=== PATIENT | female | born 1935 | race African-American/Black ===

== ENCOUNTER 2017-06-01 10:48 | Inpatient (IN) ==
[2017-06-01] MEDS ORDERED: ASPIRIN PO STA (11:36)
[2017-06-01] MEDS ORDERED: CARDIZEM IV ONE (11:36)
[2017-06-01] MEDS ORDERED: NS 500 ML IV ONE (11:37)
[2017-06-01 12:04] LABS: BASO% 0.4 % (0.0-0.8); EOS# 0.15 X1000 (0.0-0.7); EOS% 2.8 % (0.0-10.0); HEMOGLOBIN 9.2 g/dL (12.0-16.0); LYMPH# 1.75 X1000 (1.2-3.4); LYMPH% 32.7 % (20.5-51.1); MANUAL DIFF NEEDED? NO; MCH 23.4 PG (27-31); MCHC 31.7 g/dL (33-37); MCV 73.8 FL (81-99); MONO# 0.45 X1000 (0.11-0.59); MONO% 8.4 % (1.7-9.3); MPV 11.1 FL (7.4-10.4); NEUT% 55.7 % (42.2-75.2); PLT 253 X1000 (130-400); RBC 3.93 XMIL (4.2-5.4)
[2017-06-01 12:09] LABS: INR 1.24; PROTIME 13.2 Seconds (9.2-11.7)
[2017-06-01 12:13] LABS: PTT 40.6 Seconds (22.0-36.0)
[2017-06-01 12:24] LABS: AGAP 13; ALBUMIN 3.8 g/dL (3.5-5.0); ALKALINE PHOSPHATASE 44 U/L (32-104); BUN 22 mg/dL (8-22); CALCIUM 9.2 mg/dL (8.8-10.2); CHLORIDE 105 mmol/L (98-107); CK PROFILE 139 U/L (24-173); COSMO 285; GOT 20 U/L (10-30); GPT 17 U/L (10-36); POTASSIUM 4.4 mmol/L (3.5-5.1); SODIUM 141 mmol/L (136-145); TCO2 23 mmol/L (25-35); TOTAL BILIRUBIN 0.33 mg/dL (0.20-1.00); TOTAL PROTEIN 6.9 g/dL (6.3-8.3)
--- NOTE | 2017-06-01 12:32 | Diag Imaging Result Doc PS360 ---
EXAM: CHEST-2 VIEWS HISTORY: CP TECHNIQUE: Two views of the chest COMMENT: There is a granuloma in the left upper lobe. The heart size and primary vascularity are stable in appearance compared to 09/17/2015. The right lung is clearer than it was particularly in the right costophrenic angle region. IMPRESSION: No acute abnormality. Electronically signed by Jonathan Vazquez 06/01/2017 12:30 PM
--- NOTE | 2017-06-01 14:11 | EKG Report ---
Test Performed on : 06/01/2017 10:48:03 AM Test Reason : Chest Pain Blood Pressure : / mmHG Vent. Rate : 125 BPM Atrial Rate : 127 BPM P-R Int : 000 ms QRS Dur : 080 ms QT Int : 326 ms P-R-T Axes : 000 -11 -72 degrees QTc Int : 470 ms Accelerated Junctional rhythm. with retrograde conduction. Left ventricular hypertrophy with repolarization abnormality Abnormal ECG When compared with ECG of 05-MAY-2017 08:50, Junctional rhythm. has replaced Atrial flutter. T wave inversion now evident in Anterior leads Unconfirmed Result
--- NOTE | 2017-06-01 15:57 | EKG Report ---
Test Performed on : 06/01/2017 3:35:32 PM Test Reason : palpitations Blood Pressure : / mmHG Vent. Rate : 099 BPM Atrial Rate : 250 BPM P-R Int : 000 ms QRS Dur : 084 ms QT Int : 368 ms P-R-T Axes : 000 -20 -57 degrees QTc Int : 472 ms Atrial flutter. with variable AV block. Left ventricular hypertrophy with repolarization abnormality Abnormal ECG When compared with ECG of 01-JUN-2017 10:48, (Unconfirmed) Atrial flutter. has replaced Junctional rhythm. T wave inversion more evident in Anterior leads Unconfirmed Result
[2017-06-01] MEDS: CARDIZEM 100 MG/NS 100 MG/100 ML IVPB IV SCH (16:15)
--- NOTE | 2017-06-01 16:21 | ED EKG INTERP ---
This chart was entered by Tiffanie Damon Scribe, acting as scribe for Antonio Barajas MD. EKG Interpretation - EKG Time of EKG reading by physician:: 10:48 EKG Read and Signed by:: Antonio Barajas EKG Interpretation (*Must complete 3 of following elements*): Abnormal Rate: 125 Rhythm: accelerated junctional rhythm with retrograde conduction QRS: LVH (with repolarization abnormality) - EKG # 2 Time of EKG reading by physician:: 15:35 EKG Read and Signed by:: Antonio Barajas EKG Interpretation (*Must complete 3 of following elements*): Abnormal Rate: 99 Rhythm: Atrial flutter with variable AV block [place]: normal QRS: LVH (with repolarization abnormality) Attestation - Physician/ LAINA Attestation Patient care was provided by Advanced Practice Provider:: No The physician spent face to face time with patient:: Yes Advanced Practice Provider documentation review:: Supervising physician onsite and consulted in the evaluation and care of this patient. The physician did have a face to face encounter with the patient. This chart was documented by the indicated scribe, (Tiffanie Damon Scribe) and accurately reflects the services I performed and decisions made by me, Antonio Barajas MD, as attested by the provider's signature.
--- NOTE | 2017-06-01 16:22 | PROVIDER DOCUMENTATION ---
This chart was entered by Tiffanie Damon Scribe, acting as scribe for Antonio Barajas MD. HPI-Cardiac General - General Chief Complaint: Palpitations Stated Complaint: RAPID HEART RATE Time Seen by Provider: 06/01/17 11:04 Source: patient Allergies/Adverse Reactions: Patient Allergies Allergy/AdvReac Type Severity Reaction Status Date / Time codeine AdvReac NAUSEA/VOMI Verified 06/01/17 11:13 TING Home Medications: Home Medication List Medication Instructions Recorded Confirmed Last Taken Type Clonidine [Catapres] 0.1 mg PO DAILY 09/17/15 06/01/17 06/01/17 09:00 History Metformin [Glucophage] 500 mg PO DAILY 09/17/15 06/01/17 06/01/17 09:00 History Rivaroxaban [Xarelto] 20 mg PO HS 05/05/17 06/01/17 05/31/17 21:00 History Amlodipine Besylate [Amlodipine 10 mg PO DAILY 06/01/17 06/01/17 06/01/17 09:00 History Besylate] Carvedilol [Carvedilol] 25 mg PO BID 06/01/17 06/01/17 06/01/17 09:00 History Cholecalciferol (Vitamin D3) 1,000 unit PO DAILY 06/01/17 06/01/17 06/01/17 09: 00 History [Vitamin D3] Clonidine HCl [Clonidine HCl] 0.2 mg PO HS 06/01/17 06/01/17 05/31/17 21:00 History Docusate Sodium 100 mg PO DAILY 06/01/17 06/01/17 06/01/17 09:00 History Garlic 1 each PO DAILY 06/01/17 06/01/17 06/01/17 09:00 History Levocetirizine Dihydrochloride 5 mg PO PRN PRN 06/01/17 06/01/17 Unknown History [Xyzal] Metformin [Glucophage] 1,000 mg PO HS 06/01/17 06/01/17 05/31/17 21:00 History Multivit with Calcium,Iron,Min 1 each PO EVERY OTHER DAY 06/01/17 06/01/17 Unknown History [Womens Multiple Vitamins] Louisa-3 Fatty Acids/Fish Oil [Fish 1 each PO DAILY 06/01/17 06/01/17 06/01/17 09 :00 History Oil 1,000 mg Capsule] Potassium Chloride 1 tab PO DAILY 06/01/17 06/01/17 06/01/17 09:00 History Ranitidine [Zantac] 150 mg PO DAILY 06/01/17 06/01/17 Unknown History Rosuvastatin Calcium [Rosuvastatin 1 tab PO HS 06/01/17 06/01/17 Unknown History Calcium] Valsartan/Hydrochlorothiazide 1 tab PO DAILY 06/01/17 06/01/17 06/01/17 09:00 History [Valsartan-Hctz 320-25 mg Tab] - History of Present Illness-Cardiac Nature of Presenting Problem: 82 yo AAF presents to ED with cc of rapid heartbeat x 1 week. 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 Pt reports hx of HTN, NIDDM, sleep apnea, and reflux. She denies caffeine consumption, fever, and chest pain. Upon arrival to ED, pt is a&o x 3, has an accelerated heart rate, and is in no apparent distress. Quality of Pain: reports: none Severity in ED: moderate Onset/Duration: abrupt, 1 week ago Timing: still present, intermittent Context/Activities at Onset: reports: none Modifying Factors: improves with: nothing Palpitation Quality: fast/pounding heart beat Recent use of:: reports: no stimulants Associated Symptoms: reports: shortness of breath. denies: abdominal pain, diaphoresis, dizziness, edema, fever/chills, nausea, syncope, vomiting Similar Symptoms Previously?: Yes Review of Systems - Adult - REVIEW OF SYSTEMS - ADULT Constitutional: reports: no symptoms reported. denies: chills, fever Eyes: reports: no symptoms reported. denies: blurred vision, double vision Ears, Nose, Mouth & Throat: reports: no symptoms reported. denies: tinnitus, sinus problem Cardiovascular: reports: palpitations. denies: chest pain, syncope Respiratory: reports: shortness of breath. denies: cough Gastrointestinal: reports: no symptoms reported. denies: abdominal pain, nausea , vomiting Genitourinary: reports: no symptoms reported. denies: dysuria, flank pain Musculoskeletal: reports: no symptoms reported. denies: muscle aches, neck pain Integumentary: reports: no symptoms reported. denies: hives, rash Neurological: reports: no symptoms reported. denies: dizziness/vertigo, headache/migraines, syncope Psychiatric: reports: no symptoms reported. denies: anxiety, depression Endocrine: reports: no symptoms reported. denies: cold intolerance, heat intolerance Hematologic/Lymphatic: reports: no symptoms reported. denies: blood clots, lymphedema Allergic/Immunologic: reports: no symptoms reported. denies: allergic reactions , eczema All Other Systems: Reviewed and Negative Past History - Adult - PAST MEDICAL HISTORY-ADULT Review of Records: reports: Old Records Reviewed, Nursing Assessment Review, Medications Reviewed Cardiovascular: reports: other ("rare anemia") Respiratory: reports: sleep apnea (CPAP) Gastrointestinal: reports: GERD Endocrine/Immune: reports: Diabetes Other Conditions: reports: other cancer (skin) - PRIOR SURGERIES/PROCEDURES Surgical/Procedure History: reports: hysterectomy, back/neck - IMMUNIZATION STATUS Childhood Immunizations: See Nurse Assessment Flu Vaccine: See Nurse Assessment Physical Exam-General - PHYSICAL EXAM-ADULT Initial Vital Signs Reviewed: Yes - CONSTITUTIONAL General Appearance: appears well, alert, no apparent distress - EYES Eyes: PERRL/EOMI, pink conjunctivae - HEAD, EARS, NOSE, MOUTH & THROAT HENMT: normocephalic/atraumatic, moist mucous membranes - NECK Neck: non-tender, full range of motion, normal inspection - RESPIRATORY Respiratory: chest non-tender, lungs clear, normal breath sounds - CARDIOVASCULAR Cardiovascular: no edema, no gallop, no murmur, tachycardia - GASTROINTESTINAL (ABDOMEN) Abdominal Exam: normal bowel sounds, non tender, soft - LYMPHATIC Lymphatic: no adenopathy - MUSCULOSKELETAL Back Exam: normal inspection Extremity: non-tender - SKIN Integumentary: normal color, normal turgor - NEUROLOGIC Neurologic: grossly normal, no motor/sensory deficits - PSYCHIATRIC Psych/Mental Status: normal mood/affect, normal thought content, normal thought process, oriented x 3 Progress - PLAN OF CARE/RESULTS Progress/Plan/Lab Results: Vital Signs - 8 hr 06/01/17 10:56 06/01/17 13:00 06/01/17 14:00 Temperature 97.6 F Pulse Rate 124 H 99 H 125 H Respiratory Rate 18 16 21 Blood Pressure 113/72 124/73 122/98 O2 Sat by Pulse Oximetry 100 94 L 100 06/01/17 15:00 06/01/17 15:39 Temperature 98.5 F Pulse Rate 98 H Respiratory Rate 18 Blood Pressure 115/82 O2 Sat by Pulse Oximetry 93 L Laboratory Results - last 24 hr 06/01/17 06/01/17 06/01/17 11:33 11:33 11:33 WBC 5.35 RBC 3.93 L Hgb 9.2 L Hct 29.0 L MCV 73.8 L MCH 23.4 L MCHC 31.7 L RDW Std Deviation 16.2 H Plt Count 253 MPV 11.1 H Immature Gran % (Auto) 0.0 Neut % (Auto) 55.7 Lymph % (Auto) 32.7 Yancey % (Auto) 8.4 Eos % (Auto) 2.8 Baso % (Auto) 0.4 Immature Gran # (Auto) 0.00 Neut # (Auto) 2.98 Lymph # (Auto) 1.75 Yancey # (Auto) 0.45 Eos # (Auto) 0.15 Baso # (Auto) 0.02 PT INR PTT (Actin FS) D-Dimer 0.27 Sodium 141 Potassium 4.4 Chloride 105 Carbon Dioxide 23 L Anion Gap 13 BUN 22 Creatinine 0.9 Estimated GFR/1.73 m2 > 60 BUN/Creatinine Ratio 24 Glucose 98 Calculated Osmolality 285 Calcium 9.2 Magnesium 2.0 Total Bilirubin 0.33 AST 20 ALT 17 Alkaline Phosphatase 44 Creatine Kinase 139 Troponin T Kdl-I-Lermerskwje Pept Total Protein 6.9 Albumin 3.8 Globulin 3.1 Albumin/Globulin Ratio 1.2 06/01/17 06/01/17 06/01/17 11:33 11:33 11:33 WBC RBC Hgb Hct MCV MCH MCHC RDW Std Deviation Plt Count MPV Immature Gran % (Auto) Neut % (Auto) Lymph % (Auto) Yancey % (Auto) Eos % (Auto) Baso % (Auto) Immature Gran # (Auto) Neut # (Auto) Lymph # (Auto) Yancey # (Auto) Eos # (Auto) Baso # (Auto) PT 13.2 H INR 1.24 PTT (Actin FS) 40.6 H D-Dimer Sodium Potassium Chloride Carbon Dioxide Anion Gap BUN Creatinine Estimated GFR/1.73 m2 BUN/Creatinine Ratio Glucose Calculated Osmolality Calcium Magnesium Total Bilirubin AST ALT Alkaline Phosphatase Creatine Kinase Troponin T < 0.010 Rti-H-Uuctnhwtzeo Pept 1529 H Total Protein Albumin Globulin Albumin/Globulin Ratio Orders Category Date Time Status Cardiac Monitoring DIRECTED Care 06/01/17 11:36 Active Saline Loc NOW Care 06/01/17 11:36 Active CHEST-2 VIEWS [RAD] Stat Exams 06/01/17 11:36 Completed CBC WITH ELECTRONIC DIFF [HEME] Stat Lab 06/01/17 11:33 Completed CK PROFILE [SP CHEM] Stat Lab 06/01/17 11:33 Completed CK PROFILE [SP CHEM] Stat Lab 06/01/17 15:28 Received COMPREHENSIVE METABOLIC PANEL [CHEM] Stat Lab 06/01/17 11:33 Completed D-DIMER [CHEM] Stat Lab 06/01/17 11:33 Completed MAGNESIUM [CHEM] Stat Lab 06/01/17 11:33 Completed PRO B-NATRIURETIC PEPTIDE Stat Lab 06/01/17 11:33 Completed PROTIME WITH INR [COAG] Stat Lab 06/01/17 11:33 Completed PTT [COAG] Stat Lab 06/01/17 11:33 Completed TROPONIN T Stat Lab 06/01/17 11:33 Completed TROPONIN T Stat Lab 06/01/17 15:28 Received 0.9% Sodium Chloride Inj [Ns] 500 ml Med 06/01/17 11:37 Discontinued IV 999 mls/hr Aspirin Med 06/01/17 11:36 Discontinued 325 mg PO STAT STA Diltiazem 100 mg/Ns [Cardizem 100 mg/Ns] Med 06/01/17 15:37 Active 100 mg in 100 ml IV 5 mg/hr Diltiazem [Cardizem] Med 06/01/17 11:36 Discontinued 10 mg IV NOW ONE EKG [EKG] Stat Ther 06/01/17 11:36 Draft EKG [EKG] Stat Ther 06/01/17 15:02 Ordered Result Diagrams: 06/01/17 11:33 06/01/17 11:33 - REASSESSMENT Reassessment #1 Time Reassessed: 15:40 (HR went to 115 on re-exam.) Status: unchanged Reassessment Comment: Update pt on plan to admit. - XRAY 1 XRAY Study: Chest Impression: Abnormal (COMMENT: There is a granuloma in the left upper lobe. The heart size and primary vascularity are stable in appearance compared to 2015. The right lung is clearer than it was particularly in the right costophrenic angle region.) XRAY Interpretation: NAD (per radiology) - CONSULTS/PCP/HOSPITALIST Notification #1 *Consult/PCP/Hospitalist*: Dr. Barrera Time Discussed: 15:50 Reason/Comments: Admit pt Consult Disposition: Will see in ED Departure - Departure Date of Disposition Decision: 06/01/17 Time of Disposition Decision: 15:38 DIAGNOSIS: Atrial fibrillation with RVR, Heart palpitations Disposition: ADMITTED INPATIENT 09 Certified Medical Emergency: Emergent Condition: Stable Referrals and Follow-Ups: Ana Leone MD [Primary Care Provider] - - Critical Care Note This patient required my direct & personal management of CC.: Yes Total Time (mins): 40 Critical Care Statement: This patient required my direct personal management to treat or rule out processes, the absence of which, could potentiallly result in sudden, clinically significant life or limb threatening deterioration. Attestation - Physician/ LAINA Attestation Patient care was provided by Advanced Practice Provider:: No The physician spent face to face time with patient:: Yes Advanced Practice Provider documentation review:: Supervising physician onsite and consulted in the evaluation and care of this patient. The physician did have a face to face encounter with the patient. This chart was documented by the indicated scribe, (Tiffanie Damon Scribe) and accurately reflects the services I performed and decisions made by me, Antonio Barajas MD, as attested by the provider's signature.
[2017-06-01] MEDS ORDERED: TYLENOL PO PRN (16:48)
[2017-06-01] MEDS ORDERED: ZOFRAN IV PRN (16:48)
[2017-06-01] MEDS ORDERED: NS 1,000 ML IV SCH (16:48)
[2017-06-01 17:29] LABS: FREE T4 1.37 ng/dL (0.93-1.70)
--- NOTE | 2017-06-01 18:39 | HISTORY AND PHYSICAL ---
PRIMARY CARE PROVIDER: Ana Leone MD. PRIMARY HIDE TRIMMER: Marty Chung MD. CHIEF COMPLAINT: Irregular fast heartbeat. HISTORY OF PRESENT ILLNESS: Ms. Liyah Bruce is an 82-year-old, female with a medical history of atrial fibrillation which she feels has been for the last 2 months. Also with heart murmur, hypertension, hyperlipidemia, diabetes mellitus type 2 and obstructive sleep apnea along with GERD. She states that she went in for her checkup with Dr. Leone who was going to be doing some blood work. They found her heart rate to be fast and was sent here. Other complaints is when she is up throughout the day her ankles start to swell towards the end of the day. She has fluttering sensations from time to time. She essentially has to sit in a seated position to sleep. Otherwise she feels like she has a lot of gas and is unable to sleep in a flat position. She denies any chest pain, shortness of breath, fever or chills. She has been started on Cardizem drip for atrial fibrillation with a rapid ventricular response. Her blood pressure is stable. We will admit to [facility]. PAST MEDICAL HISTORY: Atrial fibrillation, atrial flutter, heart murmur, hypertension, hyperlipidemia, diabetes mellitus type 2, obstructive sleep apnea. She wears a CPAP at home but has not worn it in 1 week as she states that water keeps collecting in the tubing and she has been meaning to get it checked out. 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 PAST SURGICAL HISTORY: Right posterior tumor excision, lower back surgery, hysterectomy, polypectomy near colon and bilateral cataract surgery. SOCIAL HISTORY: Denies ever smoking. Denies alcohol or illicit drug use. Lives at home with her daughter and her son-in-law who has brain cancer. She is very independent. She continues to drive and is able to walk without any assistance. FAMILY HISTORY: She had an aunt with breast cancer, grandmother with heart disease, her mother from TB, father had heart disease and cancer. REVIEW OF SYSTEMS: Fourteen point review of systems were complete and all were negative except for those mentioned in the above HPI. She has the occasional flutter sensation. She has swelling in her ankles when she is up all day. She feels like she is gassy in the evenings. Otherwise there are no complaints. ALLERGIES: Codeine. HOME MEDICATIONS: Amlodipine besylate 10 mg p.o. daily, carvedilol 25 mg p.o. twice daily, vitamin D 3000 units p.o. daily, Catapres 0.1 mg p.o. daily, clonidine 0.2 mg p.o. nightly, docusate sodium 100 mg p.o. daily, garlic 1 p.o. daily, Xyzal 5 mg p.o. p.r.n., metformin 500 mg p.o. daily and 1000 mg p.o. nightly, multivitamin 1 tab p.o. every other day, fish oil 1 tab p.o. daily, potassium chloride 10 mEq p.o. daily, Zantac 150 mg p.o. daily, Xarelto 20 mg p.o. nightly, rosuvastatin 5 mg p.o. nightly, valsartan/hydrochlorothiazide 320/25 mg 1 tab p.o. daily. PHYSICAL EXAMINATION: VITAL SIGNS: Temperature 98.5 degrees, heart rate 105, respiratory rate 18, blood pressure 126/86, O2 saturation 98% on room air. GENERAL: Ms. Liyah Bruce is an 82-year-old, female in no acute distress. She is able to answer all questions appropriately. HEENT: Atraumatic, normocephalic. Pupils equal, round, reactive to light. Extraocular movements intact. Mucous membranes are moist. NECK: Trachea midline. CARDIOVASCULAR: Irregularly irregular rate and rhythm. No rubs or gallops. There is a low-grade murmur. No JVD or carotid bruits. No edema in the lower extremities. +2 dorsalis and radial pulses. PULMONARY: Clear to auscultation. Bilateral breath sounds. No accessory muscle use or work of breathing noted. GASTROINTESTINAL: Abdomen soft, nontender, nondistended. Positive bowel sounds x4. EXTREMITIES: Moves all extremities equally. NEUROLOGIC: Alert and oriented x4. No cranial nerve deficits. SKIN: Warm, dry, intact. LABORATORY DATA: White blood cells 5000, hemoglobin 9, hematocrit 29, platelet count 253,000. INR 1.24, D-dimer 0.27, sodium 141, potassium 4.4, BUN 22, creatinine 0.9, glucose 98, calcium 9.2, magnesium 2.0, bilirubin 0.33, AST 20, ALT 17, CK 123, troponin less than 0.01 x2, proBNP 1529. Urinalysis pending. IMAGING: EKG: A-flutter with AV block, rate was 99. There is another that said accelerated junctional rhythm with a rate of 125. The most recent was atrial flutter with AV block, rate 99. Chest x-ray: No acute findings. ASSESSMENT AND PLAN: 1. History of atrial fibrillation, atrial flutter now with rapid ventricular response. Previously she was going to have cardioversion but was not rescheduled with Dr. Chung. She presented to her primary care provider who noted her heart rate was fast and sent her here. She has been started on a Cardizem drip and her rate has been more controlled in the low 100s. Cardiology has been reconsulted. We will send to [facility]. Vital signs are stable. 2. Diabetes mellitus type 2. We will do pattern blood glucoses and sliding scale insulin. 3. Hyperlipidemia. Will continue statin. 4. Hypertension. Continue home medications. 5. Gastroesophageal reflux disease. Continue home medications. 6. Anemia is stable. 7. Deep venous thrombosis prophylaxis. She is currently on Xarelto. Dictated by GIRISH Florez for Celina Barrera MD cc: GIRISH Florez MD Bernice Swain, MD Peter Johnson, MD I personally performed a face to face evaluation on this patient. I agree with the assessment and plan as dictated. The patient presented to the ER with a chief complaint of palpitations. Upon further evaluation, the patient was noted to be in atrial fibrillation with RVR. She was started on a cardizem drip in the ER. On exam, the patient has an irregulary irregular rate and rhythm. The patient will be admitted to CICU on the cardizem drip and we will consult Cardiology for further recommendations. JACINTA
[2017-06-01] MEDS: XARELTO PO SCH (20:15)
[2017-06-01] MEDS: HUMULIN R SUBQ SCH (20:16)
[2017-06-01] MEDS: CRESTOR PO SCH (20:16)
[2017-06-02 05:16] LABS: BASO% 0.3 % (0.0-0.8); EOS# 0.26 X1000 (0.0-0.7); EOS% 4.4 % (0.0-10.0); HEMATOCRIT 28.5 % (37.0-47.0); HEMOGLOBIN 9.1 g/dL (12.0-16.0); LYMPH# 2.21 X1000 (1.2-3.4); LYMPH% 37.1 % (20.5-51.1); MANUAL DIFF NEEDED? YES; MCH 23.5 PG (27-31); MCHC 31.9 g/dL (33-37); MCV 73.5 FL (81-99); MONO# 0.57 X1000 (0.11-0.59); MONO% 9.6 % (1.7-9.3); MPV 10.4 FL (7.4-10.4); NEUT% 48.6 % (42.2-75.2); PLT 247 X1000 (130-400); RBC 3.88 XMIL (4.2-5.4); RETIC% 1.78 % (0.8-2.1); RETIC-HE 26.8 PG (28.2-36.6)
[2017-06-02 05:20] LABS: INR 1.28; PROTIME 13.7 Seconds (9.2-11.7); PTT 38.3 Seconds (22.0-36.0)
[2017-06-02 05:36] LABS: AGAP 14; ALBUMIN 3.7 g/dL (3.5-5.0); ALKALINE PHOSPHATASE 43 U/L (32-104); BUN 21 mg/dL (8-22); CALCIUM 8.9 mg/dL (8.8-10.2); CHLORIDE 103 mmol/L (98-107); COSMO 284; GOT 17 U/L (10-30); GPT 16 U/L (10-36); IRON SATURATION 15 %; POTASSIUM 3.8 mmol/L (3.5-5.1); SODIUM 141 mmol/L (136-145); TCO2 24 mmol/L (25-35); TIBC 291 ug/dL; TOTAL IRON 45 ug/dL (49-151); TOTAL PROTEIN 6.8 g/dL (6.3-8.3); UNBOUND IRON 246 ug/dL (112-346)
[2017-06-02 05:44] LABS: EOS 2 % (1-10); LYMPHS 38 % (21-51); MONO 8 % (1-9)
[2017-06-02 05:54] LABS: VITAMIN D 25 HYDROXY 44.8 NG/DL
--- NOTE | 2017-06-02 06:48 | EKG Report ---
Test Performed on : 06/02/2017 06:29:34 AM Test Reason : afib Blood Pressure : / mmHG Vent. Rate : 128 BPM Atrial Rate : 258 BPM P-R Int : 000 ms QRS Dur : 080 ms QT Int : 324 ms P-R-T Axes : 183 -05 181 degrees QTc Int : 473 ms Atrial flutter. with variable AV block. with premature ventricular or aberrantly conducted complexes . Left ventricular hypertrophy with repolarization abnormality Nonspecific T wave abnormality Abnormal ECG When compared with ECG of 01-JUN-2017 15:35, (Unconfirmed) Nonspecific T wave abnormality has replaced inverted T waves in Inferior leads T wave inversion no longer evident in Anterior leads Confirmed by Brian Mcelroy MD ([id number]) on 06/03/2017 3:22:02 PM
[2017-06-02] MEDS: CARDIZEM 100 MG/NS 100 MG/100 ML IVPB IV SCH ×2 (07:37→11:40)
[2017-06-02] MEDS: COLACE PO SCH (08:24)
[2017-06-02] MEDS: VITAMIN D PO SCH (08:24)
[2017-06-02] MEDS: PRILOSEC PO SCH (08:24)
[2017-06-02] MEDS: HUMULIN R SUBQ SCH ×4 (09:46→21:19)
--- NOTE | 2017-06-02 10:55 | CONSULTATION ---
DATE OF CONSULTATION: 06/02/2017 INDICATION: Atrial fibrillation. HISTORY OF PRESENT ILLNESS: Ms. Liyah Bruce is an 82-year-old black female with a history of atrial flutter. We had planned on doing a PEREZ cardioversion on her earlier this month. However, due to some instability in an in-hospital patient, the patient's procedure was bumped to a little bit later in the day. She would not stay for that procedure and ended up going home. Subsequently yesterday she went to see her primary care physician and was noted to be in atrial flutter with a fast heart rate. She was then sent to the ER for further evaluations. Per my evaluation back in April, she was having some issues with shortness of breath as well as some lower extremity edema and was felt to be in some low level heart failure secondary to a-flutter, as well as being symptomatic as well. She continues with these symptoms which is understandable considering she is still in atrial fibrillation. She has no bleeding issues, no falls, no swallowing issues. She did have an esophageal dilatation several months ago. However, has not had any sort of dysphasia or odynophagia in the interim, no bleeding issues that she is aware of, no significant gastric ulcerations. PAST MEDICAL HISTORY: 1. Significant for atrial fibrillation/atrial flutter. She has been maintained on Xarelto. She did receive a dose last night. 2. Aortic insufficiency. 3. Mitral regurgitation. 4. Hyperlipidemia. 5. Diabetes. SOCIAL HISTORY: She does not smoke. No alcohol. No illicit drugs. She lives independent. She drives without any assistance. FAMILY HISTORY: She has an aunt with breast cancer. Grandmother had heart disease. Her mother from TB. Father had heart disease and cancer as well. REVIEW OF SYSTEMS: A 10 system review of systems is negative, except for those things mentioned in HPI. PHYSICAL EXAMINATION: Vital Signs: She is afebrile. Her current heart rate is in the 120s and appears to be consistent with either coarse atrial fibrillation or atrial flutter. Blood pressure 129/84. General: Generally, no acute distress. HEENT: Oropharynx is moist. Normal dentition. Eye examination with pink conjunctivae, white sclerae. Neck: Examination shows no obvious thyromegaly or thyroid tenderness. Cardiovascular: She sounds to be in a regular, but tachycardic rhythm. She has no murmurs. She has no lower extremity edema. Chest: Exam sounds clear bilaterally. She has no increased work of breathing. Abdomen: Soft, nontender, nondistended. She has no obvious organomegaly. Skin Exam: Warm and dry throughout without any rashes. Neurological: She is moving all extremities well. Cranial nerves 2-12 are intact without any sensation deficits. Psychiatric: She is alert and oriented. Normal mood and affect. PERTINENT DATA: Chest x-ray shows no evidence of acute abnormalities, relatively clear lungs appearing. Echo on April 13 demonstrated an EF of 51%. She had mild pulmonic insufficiency, moderate TR, moderate mitral regurg, mild AI. She was in atrial fibrillation during the course of the study. White count 5.9, hematocrit 28.5, platelet count is 247. INR 1.28. Sodium 141, potassium 3.8, BUN 21, creatinine 0.9. Magnesium level was 2, AST and ALT normal. Cardiac enzymes normal. ProBNP is elevated at 1529. Albumin level is 3.7. TSH yesterday was 2.2. ASSESSMENT: Atrial flutter. PLAN: Patient will undergo PEREZ cardioversion today per our recommendations and attempts at performing this earlier in the month. Risks, benefits, and alternatives of the procedure have been explained, including bleeding esophageal perforation, potential . She agrees to proceed with the procedure as detailed. She did receive Xarelto last night. cc: Marty Chung MD
[2017-06-02] MEDS ORDERED: XYLOCAINE 2% VISCOUS ONE (12:44)
[2017-06-02] MEDS ORDERED: XYLOCAINE 4% TOPICAL SOLUTION ONE (12:44)
[2017-06-02] MEDS ORDERED: SODIUM CHLORIDE 0.9% 10 ML ONE (12:45)
[2017-06-02] MEDS ORDERED: NS 1,000 ML ONE (13:00)
[2017-06-02] MEDS ORDERED: ANESTHESIA PB SET 88 IN 5742 ONE (13:00)
[2017-06-02] MEDS ORDERED: DIPRIVAN 1% ONE (14:19)
[2017-06-02] MEDS ORDERED: XYLOCAINE-MPF 2% ONE (14:19)
--- NOTE | 2017-06-02 14:33 | CARDIAC CATH REPORT ---
PROCEDURE NAME: - INDICATION: Atrial fibrillation. PROCEDURE IN DETAIL: Ms Bruce was brought to the catheterization laboratory fasting state. PEREZ was performed. After adequate PEREZ images were obtained and no clot was identified she was ensured to be adequately sedated. One shock was delivered in synchronized fashion at 150 joules which converted her over to sinus rhythm. She did have some prolongation of sedation and was transferred over to the postop holding area but seemed to be tolerating procedure and seemed to be waking and saturating fine at the time of transfer. cc: Marty Chung MD MTDD
[2017-06-02] MEDS: CORDARONE 150 MG/D5W 150 MG/100 ML IV.SOLN IV ONE ×2 (14:42→16:39)
[2017-06-02] MEDS: CORDARONE 360 MG/D5W 360 MG/200 ML IV.SOLN IV ONE ×2 (14:53→16:39)
--- NOTE | 2017-06-02 16:40 | EKG Report ---
Test Performed on : 06/02/2017 4:06:40 PM Test Reason : post luciana/CVN Blood Pressure : / mmHG Vent. Rate : 080 BPM Atrial Rate : 080 BPM P-R Int : 190 ms QRS Dur : 080 ms QT Int : 448 ms P-R-T Axes : 063 -09 -46 degrees QTc Int : 516 ms Normal sinus rhythm. Voltage criteria for left ventricular hypertrophy Nonspecific ST and T wave abnormality Prolonged QT Abnormal ECG When compared with ECG of 02-JUN-2017 06:29, (Unconfirmed) Normal sinus rhythm has replaced atrial flutter Nonspecific ST and T wave abnormality are more prominent in the inferolateral leads. Confirmed by Brian Mcelroy MD ([id number]) on 06/03/2017 3:28:46 PM
--- NOTE | 2017-06-02 16:54 | PROGRESS NOTE ---
DATE: 06/02/2017 SUBJECTIVE: Ms. Liyah Bruce is an 82-year-old, female. She is currently in PACU as she recently had cardioversion with the side effect of heavy sedation after receiving sedatives for the procedure. So she is being monitored more closely there until she fully recovers. She is tachypneic but her vital signs are stable. She is in sinus rhythm. She is improving and more alert. OBJECTIVE: Vital Signs: Temperature 97.2, heart rate 86, sinus rhythm, respiratory rate 18, blood pressure 119/67, O2 saturation 93% on nasal cannula. General: Ms. Liyah Bruce is an 82- year-old, female. She is tachypneic but not in significant distress. She is able to answer questions appropriately and is more alert after her sedation. Cardiovascular: S1, S2. Regular rate and rhythm. No rubs, gallops, murmurs. No JVD or carotid bruits. No edema. + 2 dorsalis and radial pulses. Pulmonary: Clear to auscultation. Bilateral breath sounds. No accessory muscle use but mild work of breathing. Currently on nasal cannula. GI: Soft, nontender, nondistended. Positive bowel sounds x4. Neuro: Alert and oriented x4. Moves all extremities equally. LABORATORY DATA: White blood cells 1000, hemoglobin 9, hematocrit 28, platelet count 247, INR 1.28, PTT is 38.3. Sodium 141, potassium 3.8, BUN 21, creatinine 0.9, glucose 95. Iron 49, total iron binding capacity is 291, saturation 15, ferritin is 160. Total bilirubin 0.40. AST 17, ALT 16. CK 106. Troponin less than 0.01. Vitamin B12 781, vitamin D 44, folate 18, TSH 2.24, free T4 is 1.37. IMAGING AND PROCEDURES: EKG this morning atrial flutter with a rate of 128. At around 2 o'clock today had a PEREZ which revealed no clot in the heart. She was sedated and had one shock synchronized 150 joules which converted her to sinus rhythm. During the procedure she had prolongation of sedation and was sent to postop holding for recovery. ASSESSMENT AND PLAN: 1. History of atrial fibrillation, atrial flutter. Presented to the emergency room yesterday with rapid ventricular response. Today now she is status post cardioversion x1 shock by Dr. Chung. She was overly sedated and went to PACU for recovery. Will need to remain in the hospital for one more day and she should continue on Xarelto. 2. Diabetes mellitus type 2. Continue the pattern blood glucoses and sliding scale insulin. 3. Hyperlipidemia. Continue statin. 4. Hypertension. Continue home medications. 5. Gastroesophageal reflux disease. Continue home medications. 6. Anemia with some mild iron-deficiency anemia but stable. Dictated by GIRISH Florez for Kerwin Navarro MD cc: GIRISH Florez MD
--- NOTE | 2017-06-02 19:37 | PROGRESS NOTE ---
DATE: 06/02/2017 ADDENDUM: Patient seen face to face. Examined. Cardiovascular: She is still irregularly irregular. Patient underwent DC cardioversion today but looks like she may still be in flutter. She has been placed on an amiodarone drip per Dr. Chung. Plan is to monitor her overnight and if stable home tomorrow on Xarelto which he had previously been on, and amiodarone. We will continue to follow. cc: Kerwin Navarro MD
[2017-06-02] MEDS ORDERED: CORDARONE 540 MG in D5W 289.2 ML IV ONE (20:30)
[2017-06-02] MEDS: CRESTOR PO SCH (21:14)
[2017-06-02] MEDS: XARELTO PO SCH (21:14)
[2017-06-02] MEDS: CORDARONE PO SCH (21:14)
[2017-06-02] MEDS ORDERED: NS NEB INH SCH (21:30)
[2017-06-02] MEDS ORDERED: APRESOLINE IV PRN (21:42)
[2017-06-02] MEDS: CATAPRES PO SCH (22:08)
[2017-06-02] MEDS ORDERED: LASIX IV ONE (22:19)
[2017-06-02] MEDS: MUCINEX PO SCH (22:33)
[2017-06-02] MEDS: XOPENEX NEB INH PRN (22:49)
[2017-06-03 05:12] LABS: BASO% 0.2 % (0.0-0.8); EOS# 0.03 X1000 (0.0-0.7); EOS% 0.3 % (0.0-10.0); HEMATOCRIT 27.2 % (37.0-47.0); HEMOGLOBIN 8.9 g/dL (12.0-16.0); IMM GRAN# 0.02 X1000 (0.0-0.04); IMM GRAN% 0.2 % (0.0-0.5); LYMPH# 1.64 X1000 (1.2-3.4); LYMPH% 16.8 % (20.5-51.1); MANUAL DIFF NEEDED? NO; MCH 23.9 PG (27-31); MCHC 32.7 g/dL (33-37); MCV 72.9 FL (81-99); MONO# 1.08 X1000 (0.11-0.59); MPV 10.7 FL (7.4-10.4); NEUT% 71.5 % (42.2-75.2); PLT 237 X1000 (130-400); RBC 3.73 XMIL (4.2-5.4)
[2017-06-03 05:25] LABS: ALBUMIN 3.4 g/dL (3.5-5.0); CALCIUM 8.5 mg/dL (8.8-10.2); MAGNESIUM 1.9 mg/dL (1.5-2.7); POTASSIUM 3.7 mmol/L (3.5-5.1); TOTAL BILIRUBIN 0.41 mg/dL (0.20-1.00); TOTAL PROTEIN 6.1 g/dL (6.3-8.3)
[2017-06-03] MEDS: HUMULIN R SUBQ SCH ×4 (06:57→23:19)
[2017-06-03] MEDS: MUCINEX PO SCH ×2 (08:50→20:39)
[2017-06-03] MEDS: THERA M PLUS PO SCH (08:50)
[2017-06-03] MEDS: COLACE PO SCH (08:50)
[2017-06-03] MEDS: CORDARONE PO SCH ×2 (08:50→20:38)
[2017-06-03] MEDS: PRILOSEC PO SCH (08:51)
[2017-06-03] MEDS: VITAMIN D PO SCH (08:51)
--- NOTE | 2017-06-03 09:23 | Diag Imaging Result Doc PS360 ---
EXAM: CHEST-PORTABLE INDICATION: SOB TECHNIQUE: One view COMPARISON: 06/01/2017 FINDINGS: There are increased central vascular markings and increased interstitial markings at the lower lung zones that have developed during the interval suggesting pulmonary venous congestion and mild interstitial edema. No other new consolidations are appreciated. The cardiac silhouette is prominent but appears stable given differences in technique. IMPRESSION: Suggestion of pulmonary venous congestion and mild interstitial edema that has developed during the interval. Electronically signed by Myron Cr 06/03/2017 9:21 AM
[2017-06-03] MEDS: XOPENEX NEB INH PRN ×4 (09:54→23:10)
--- NOTE | 2017-06-03 11:02 | PROGRESS NOTE ---
DATE: 06/03/2017 CHIEF COMPLAINT: Shortness of breath, irregular heartbeat. SUBJECTIVE: Mrs. Bruce has converted to sinus rhythm. However, last night she had an episode of significant dyspnea. They did a stat chest x-ray that shows possible pulmonary edema. She is feeling somewhat better this morning. She is not having any chest pain. OBJECTIVE: Vital signs: Blood pressure is 126/65, pulse 104, respirations 16, temperature 98.7. General; She is awake, alert, oriented, follows commands. HEENT: Unremarkable. Chest: Decreased breath sounds at bases. Cardiac: Heart sounds are regular and rhythmic. I do not hear any definite gallop or murmur. Abdomen: Nontender, soft, no masses, no hepatomegaly. Extremities: Good pulses, no peripheral edema. Neurological: Follows commands, moves four extremities. BLOOD WORK: Sodium 139, potassium 3.7, BUN 25, creatinine 1.3. Hemoglobin is 8.9, hematocrit is 27.2, white count 9680. She has low iron levels. Iron is 45. Saturation 15%. Ferritin is 160, which is slightly elevated. TIBC is 291. Her proBNP level was 1529. Albumin is 3.4. IMPRESSION: 1. Patient presented with symptoms of irregular palpitations and some dyspnea. This was due to atrial fibrillation, and she has been cardioverted yesterday. There was some recurrence after cardioversion, and she has remained stable on amiodarone. 2. History of obstructive sleep apnea, CPAP treatment. 3. Diabetes mellitus type 2. 4. History of gastroesophageal reflux with hiatal hernia. 5. Iron-deficiency anemia. 6. Congestive heart failure, presumably diastolic dysfunction given the fact that on previous cardiac imaging studies her ejection fraction has been normal. RECOMMENDATION: At this point in time, I would suggest to obtain a C-reactive protein level and a sed rate to make sure that we are not dealing with some sort of aspiration pneumonia complicating her course. If those numbers are reasonably low, then I guess she could probably go home on medical therapy. I believe it may be a good idea to keep her one more night in the hospital to make sure that she is stable. I am not sure as to why she went into some respiratory distress last night. However, the findings of possible CHF is worrisome. I would suggest to repeat the chest x-ray early in the morning prior to sending her home, getting a 2-view x-ray. cc: Mik Waldron MD
[2017-06-03] MEDS ORDERED: LASIX IV ONE (16:45)
--- NOTE | 2017-06-03 17:07 | PROGRESS NOTE ---
DATE: 06/03/2017 SUBJECTIVE: Patient has no focal complaints. She had some hypoxia overnight and had a chest x- ray done on the which showed some pulmonary vascular congestion. OBJECTIVE: Vital signs: This afternoon blood pressures is 137/76, heart rate of 97, respiratory 18, temperature 98.7 degrees, 97% on 2 L. Cardiovascular: Regular rate, rhythm. Pulmonary: Bilateral breath sounds. Clear to auscultation. GI: Soft, nontender, nondistended. Bowel sounds are positive. PROBLEM LIST: 1. Atrial fibrillation with rapid ventricular response. Appears to be rate controlled on current medications. She is on amiodarone. 2. Possible heart failure versus aspiration event. I will continue some diuretic and follow her clinically. I do not think at this point she has pneumonia per se. 3. Diabetes appears to be stable. DISPOSITION: I anticipate probably discharge tomorrow if she is stable and we can get her off oxygen. cc: Kerwin Navarro MD
[2017-06-03] MEDS: XARELTO PO SCH (20:38)
[2017-06-03] MEDS: CATAPRES PO SCH (20:39)
[2017-06-03] MEDS: CRESTOR PO SCH (20:39)
[2017-06-04] MEDS: XOPENEX NEB INH PRN (03:25)
[2017-06-04 05:24] LABS: CALCIUM 8.4 mg/dL (8.8-10.2); POTASSIUM 3.2 mmol/L (3.5-5.1)
[2017-06-04 05:26] LABS: HEMATOCRIT 25.3 % (37.0-47.0); HEMOGLOBIN 8.2 g/dL (12.0-16.0); MCH 23.4 PG (27-31); MCHC 32.4 g/dL (33-37); MCV 72.3 FL (81-99); MPV 10.8 FL (7.4-10.4); RBC 3.5 XMIL (4.2-5.4)
[2017-06-04] MEDS: HUMULIN R SUBQ SCH ×4 (07:27→21:07)
[2017-06-04] MEDS: COLACE PO SCH (09:50)
[2017-06-04] MEDS: MUCINEX PO SCH ×2 (09:50→21:07)
[2017-06-04] MEDS: PRILOSEC PO SCH (09:50)
[2017-06-04] MEDS: VITAMIN D PO SCH (09:50)
[2017-06-04] MEDS: CORDARONE PO SCH ×2 (09:50→21:07)
--- NOTE | 2017-06-04 10:17 | Diag Imaging Result Doc PS360 ---
EXAM: CHEST-2 VIEWS INDICATION: hypoxia TECHNIQUE: 2 views COMPARISON: 06/02/2017 FINDINGS: There has been interval modest improvement of pulmonary venous congestion and interstitial edema since the previous study. No new consolidations are appreciated. Cardiac silhouette is stable. There are probably small bilateral pleural effusions that are stable. IMPRESSION: Interval improvement as described. Electronically signed by Myron Cr 06/04/2017 10:15 AM
[2017-06-04] MEDS ORDERED: POTASSIUM CHLORIDE 20% LIQUID PO ONE (10:30)
--- NOTE | 2017-06-04 11:02 | PROGRESS NOTE ---
DATE: 06/04/2017 CHIEF COMPLAINT: Shortness of breath, irregular heartbeat. SUBJECTIVE: Ms. Bruce is generally feeling better. Breathing has improved. She has some cough. No chest pain. She does not have a great appetite this morning. OBJECTIVE: Blood pressure is 127/70, temperature 98.1, pulse 64, respirations 14. Telemetry shows sinus rhythm. HEENT is unremarkable. Chest sounds very clear to auscultation and percussion. Heart sounds are regular and rhythmic. I do not hear gallop or murmur. Abdomen is nontender. Extremities show no edema. Neurologic: Follows commands. Moves all 4 extremities. DIAGNOSTIC DATA: Blood work today shows sodium is 140, potassium 3.2, BUN is 22, creatinine 1.1. ProBNP went up to 4096. Hemoglobin is 8.2, hematocrit 25.7. IMPRESSION: 1. The patient has presented with paroxysmal atrial fibrillation. She has been cardioverted and is in sinus rhythm. 2. Iron deficiency anemia. 3. Congestive heart failure that appears to be due to diastolic dysfunction. 4. History of obstructive sleep apnea. 5. History of gastroesophageal reflux disease, reflux. 6. History of diabetes mellitus. RECOMMENDATIONS: At this time, I would suggest to continue her on present medications. I would suggest to consider iron replacement, either IV or by mouth. Her C-reactive protein yesterday was only minimally elevated at 13.09, and her sedimentation rate was also slightly elevated at 31. She is presently taking no antibiotics. It is possible that she may have had some bronchitis complicating her presentation. Her chest x-ray on the day of admission showed no acute abnormalities. From my viewpoint, the patient is probably getting closer to being discharged. I would consider administration of iron. cc: Mik Waldron MD
[2017-06-04] MEDS ORDERED: KLOR-CON PO ONE (12:00)
[2017-06-04] MEDS: XARELTO PO SCH (21:07)
[2017-06-04] MEDS: CRESTOR PO SCH (21:07)
[2017-06-04] MEDS: CATAPRES PO SCH (21:07)
--- NOTE | 2017-06-05 02:58 | PROGRESS NOTE ---
DATE: 06/05/2017 SUBJECTIVE: Patient has no focal complaints. Appears clinically improved. OBJECTIVE: Vital Signs: Blood pressure 111/64, heart rate 78, respiratory rate 18, temperature 97.7 degrees, 98% on room air. Cardiovascular: Regular rate and rhythm. Pulmonary: Bilateral breath sounds clear to auscultation. GI: Soft, nontender, nondistended. Bowel sounds were positive. Laboratory Data: White count 7, hemoglobin and hematocrit 8 and 25, platelets 215,000. Chemistries otherwise okay. Potassium was 3.2. PROBLEM LIST: 1. Atrial fibrillation with rapid ventricular response. I think she has converted back on amiodarone. 2. Volume overload. Appears to be overall improved. She is on anticoagulation. 3. Discharge condition. Likely can discharge in the next 24-48 hours. cc: Kerwin Navarro MD
[2017-06-05 05:25] LABS: BASO% 0.4 % (0.0-0.8); EOS# 0.32 X1000 (0.0-0.7); EOS% 4.6 % (0.0-10.0); HEMATOCRIT 24.6 % (37.0-47.0); HEMOGLOBIN 7.9 g/dL (12.0-16.0); IMM GRAN# 0.02 X1000 (0.0-0.04); IMM GRAN% 0.3 % (0.0-0.5); LYMPH# 1.94 X1000 (1.2-3.4); LYMPH% 27.9 % (20.5-51.1); MANUAL DIFF NEEDED? NO; MCH 23.3 PG (27-31); MCHC 32.1 g/dL (33-37); MCV 72.6 FL (81-99); MONO% 12.9 % (1.7-9.3); MPV 11.1 FL (7.4-10.4); NEUT% 53.9 % (42.2-75.2); PLT 221 X1000 (130-400); RBC 3.39 XMIL (4.2-5.4)
[2017-06-05 05:36] LABS: ALBUMIN 3.3 g/dL (3.5-5.0); CALCIUM 8.3 mg/dL (8.8-10.2); MAGNESIUM 2.4 mg/dL (1.5-2.7); POTASSIUM 4.4 mmol/L (3.5-5.1); TOTAL BILIRUBIN 0.42 mg/dL (0.20-1.00); TOTAL PROTEIN 6.3 g/dL (6.3-8.3)
[2017-06-05] MEDS: HUMULIN R SUBQ SCH ×2 (06:07→11:56)
--- NOTE | 2017-06-05 06:08 | EKG Report ---
Test Performed on : 06/04/2017 06:36:08 AM Test Reason : afib Blood Pressure : / mmHG Vent. Rate : 098 BPM Atrial Rate : 098 BPM P-R Int : 198 ms QRS Dur : 086 ms QT Int : 414 ms P-R-T Axes : 040 004 016 degrees QTc Int : 528 ms Normal sinus rhythm. Voltage criteria for left ventricular hypertrophy ST \T\ T wave abnormality, consider anterior ischemia Prolonged QT Abnormal ECG When compared with ECG of 03-JUN-2017 06:28, (Unconfirmed) ST no longer depressed in Inferior leads Nonspecific T wave abnormality has replaced inverted T waves in Inferior leads Confirmed by Sara WHITTAKER, Vinod Contreras ([id number]) on 06/05/2017 4:59:27 PM
--- NOTE | 2017-06-05 06:11 | EKG Report ---
Test Performed on : 06/03/2017 06:28:20 AM Test Reason : afib Blood Pressure : / mmHG Vent. Rate : 082 BPM Atrial Rate : 082 BPM P-R Int : 196 ms QRS Dur : 078 ms QT Int : 454 ms P-R-T Axes : 066 000 -41 degrees QTc Int : 530 ms Normal sinus rhythm. Voltage criteria for left ventricular hypertrophy Nonspecific ST and T wave abnormality Prolonged QT Abnormal ECG When compared with ECG of 02-JUN-2017 16:06, (Unconfirmed) No significant change was found Confirmed by Brian Mcelroy MD ([id number]) on 06/05/2017 8:00:02 AM
[2017-06-05] MEDS: XOPENEX NEB INH PRN (07:52)
[2017-06-05] MEDS: THERA M PLUS PO SCH (08:41)
[2017-06-05] MEDS: MUCINEX PO SCH (08:41)
[2017-06-05] MEDS: COLACE PO SCH (08:42)
[2017-06-05] MEDS: PRILOSEC PO SCH (08:42)
[2017-06-05] MEDS: CORDARONE PO SCH (08:42)
[2017-06-05] MEDS: VITAMIN D PO SCH (08:42)
[2017-06-05 11:25] VITALS: BP 120/59
[2017-06-05 12:23] LABS: HEMATOCRIT 25.6 % (37.0-47.0); HEMOGLOBIN 8.2 g/dL (12.0-16.0)
--- NOTE | 2017-06-06 12:38 | DISCHARGE SUMMARY ---
ADMISSION DATE: 06/01/2017 DISCHARGE DATE: 06/05/2017 DISCHARGE DIAGNOSES: 1. Atrial fibrillation with rapid ventricular response. 2. Mild volume overload. 3. Acute hypoxic episode related to volume overload and sleep apnea. HISTORY OF PRESENT ILLNESS: Briefly, this is a consultation. Cardiology procedures: PEREZ with direct cardioversion. Please refer to complete H P dictated on admission. This is an 82-year-old female with atrial fibrillation. She had an elective, I think, DC cardioversion. She had been started on Cardizem. She was actually admitted for just atrial fibrillation with rapid ventricular response. Dr. Chung was consulted. She was cardioverted on the but then she developed, I think, hypotension and desaturation and she was observed for recovery. She did have a little bit of persistent hypoxia. She developed some shortness of breath for which chest x-ray showed some degree of volume overload. She was given a little bit of diuresis, monitored per Dr. Nino over the weekend. He was concerned about an aspiration pneumonia. I do not think she had a true aspiration pneumonia. On the it was felt that she could be stable for discharge. I think she had spontaneously converted on the amiodarone. She was already on anticoagulation. She did have a drop in her hemoglobin and hematocrit to 8 and 25. Creatinine, however, with some diuresis went up to 1.5 though clinically she appears to be stable. Her AST and ALT have bumped up a little bit. That may be related to her amiodarone so this will need to be watched. In any case, she was felt was stable for discharge. DISCHARGE MEDICATIONS: 1. Amlodipine 10 daily. 2. Coreg 25 b.i.d. 3. Vitamin D3 1000 units daily. 4. Clonidine 0.1 daily and 0.2 at night. 5. Docusate 100 daily. 6. Garlic 1 daily. 7. Zyrtec 5 daily. 8. Metformin 500 daily and 1000 mg at night. 9. Multivitamin daily. 10. [place]-3 daily. 11. Klor-Con 10 daily. 12. Zantac 150 daily. 13. Xarelto 20 daily. 14. Rosuvastatin. Somehow on her discharge she is on an amiodarone taper. 15. We did hold her valsartan hydrochlorothiazide just because of her renal insufficiency. I did do a Hemoccult on her because she did drop her hemoglobin and hematocrit since admission. It is 8 and 25 at the time of discharge but that it has been stable for 2 days. Hemoccult was negative. ASSESSMENT AND PLAN: I would recommend followup basic CBC and hepatic function in [address] Leone because of the fact that she is on amiodarone and she will follow up with Dr. Marty Chung in 2-4 weeks just to make sure that the atrial fibrillation seems under control. TIME SPENT ON DISCHARGE: 32 minute discharge. cc: MD Ana Waters MD Peter Johnson, MD
--- NOTE | 2017-06-06 15:58 | Transesophageal Echocardiogram ---
DATE: 06/02/2017 INDICATION: Atrial fibrillation. Evaluate pre-cardioversion. PROCEDURE IN DETAIL: Ms. Bruce was brought to the catheterization laboratory in fasting state. Informed consent was obtained. She was prepped in usual fashion. Viscous lidocaine and Hurricaine spray were used to anesthetize the oropharynx. After appropriate sedation, the PEREZ probe was passed. There was some issue with oversedation and some mild hypoxia that was managed conservatively. The PEREZ was performed to adequately rule out left atrial thrombus. The probe was removed. The patient tolerated the procedure well and again. The mild hypoxia occurring during the course of the case was treated with conservative measures. FINDINGS: 1. The left atrium and left atrial appendage appear to be free of clot. The pulse wave velocity was intermittently greater than 40 cm/sec during the course of the study. There is no clear evidence of Doppler evidence of clot visualized in the left atrial appendage. 2. The aortic valve appears to open well and was trileaflet. No evidence of mitral valve prolapse. 3. The left ventricle was not completely evaluated from the standpoint of LV function. It did not appear to have any clot present in it. LV systolic function is estimated to be on the order of 50-55%. 4. There was no evidence of clot seen in the right heart. 5. No evidence of pericardial effusion identified. 6. There is mild atherosclerosis identified in the descending thoracic aorta. cc: Marty Chung MD
[2017-06-07] MEDS ORDERED: CORDARONE PO SCH (09:00)
[2017-06-12] MEDS ORDERED: CORDARONE PO SCH (09:00)
== END 2017-06-05 15:43 | disposition home or self-care (01) ==
LOC: ED 10:48 → EDIPHOLD 16:16 → SUATTDRO 16:16 → 3S 17:07
PROVIDERS: ATTEND Internal Medicine

== ENCOUNTER 2019-07-30 11:26 | Inpatient (IN) ==
--- NOTE | 2019-07-30 11:48 | EKG Report ---
Test Performed on : 07/30/2019 11:45:01 AM Test Reason : sob Blood Pressure : / mmHG Vent. Rate : 087 BPM Atrial Rate : 087 BPM P-R Int : 248 ms QRS Dur : 082 ms QT Int : 418 ms P-R-T Axes : 000 -06 -61 degrees QTc Int : 502 ms Sinus rhythm. with 1st degree AV block. Left ventricular hypertrophy with repolarization abnormality Abnormal ECG When compared with ECG of 04-JUN-2017 06:36, [place] interval has increased Inverted T waves have replaced nonspecific T wave abnormality in Inferior leads T wave inversion no longer evident in Anterior leads Inverted T waves have replaced nonspecific T wave abnormality in Lateral leads Unconfirmed Result
[2019-07-30 12:09] LABS: BASO# 0.05 X1000 (0.0-0.2); BASO% 0.8 % (0.0-0.8); EOS# 0.09 X1000 (0.0-0.7); EOS% 1.4 % (0.0-10.0); HEMATOCRIT 26.7 % (37.0-47.0); HEMOGLOBIN 8.1 g/dL (12.0-16.0); IMM GRAN# 0.02 X1000 (0.0-0.04); IMM GRAN% 0.3 % (0.0-0.5); LYMPH# 1.07 X1000 (1.2-3.4); LYMPH% 16.8 % (20.5-51.1); MCH 23.3 PG (27-31); MCHC 30.3 g/dL (33-37); MCV 76.7 FL (81-99); MONO# 0.34 X1000 (0.11-0.59); MONO% 5.3 % (1.7-9.3); MPV 10.8 FL (7.4-10.4); NEUT# 4.81 X1000 (1.4-6.5); NEUT% 75.4 % (42.2-75.2); PLT 276 X1000 (130-400); RBC 3.48 XMIL (4.2-5.4); RDW 17.9 % (11.5-14.5); WBC 6.38 X1000 (4.8-10.8)
--- NOTE | 2019-07-30 12:41 | Diag Imaging Result Doc PS360 ---
CHEST-2 VIEWS - 07/30/2019 INDICATION: sob COMPARISON: 06/04/2017 FINDINGS: There are small bilateral pleural effusions. There is COPD. There are ill-defined interstitial infiltrates diffusely and bilaterally. This suggests pulmonary edema. There is a nodular opacity in the lateral left lung base measuring about 1 cm. There is significant cardiomegaly and pulmonary vascular congestion. IMPRESSION: 1. Congestive heart failure. 2. Pulmonary nodule in the left lung base. Electronically signed by Antony Casas 07/30/2019 12:39 PM
[2019-07-30 12:48] LABS: AGAP 18; ALB/GLOB RATIO 1.2; ALBUMIN 3.5 g/dL (3.5-5.0); ALKALINE PHOSPHATASE 81 U/L (32-104); BUN 28 mg/dL (8-22); CHLORIDE 107 mmol/L (98-107); CK PROFILE 107 U/L (24-173); COSMO 290; CREATININE 1.3 mg/dL (0.5-0.9); GLUCOSE 120 mg/dL (70-104); GOT 78 U/L (10-30); GPT 113 U/L (10-36); POTASSIUM 4.5 mmol/L (3.5-5.1); SODIUM 142 mmol/L (136-145); TCO2 17 mmol/L (25-35); TOTAL BILIRUBIN 0.41 mg/dL (0.20-1.00); TOTAL PROTEIN 6.4 g/dL (6.3-8.3)
[2019-07-30 12:59] LABS: INR 1.62; PROTIME 19.6 Seconds (11.0-16.0)
[2019-07-30 13:00] LABS: PTT 36.4 Seconds (22.3-41.8)
--- NOTE | 2019-07-30 14:43 | PROVIDER DOCUMENTATION ---
HPI-General Adult - General Chief Complaint: Shortness of Breath Stated Complaint: SOB/WEAKNESS Time Seen by Provider: 07/30/19 13:25 Source: patient Allergies/Adverse Reactions: Patient Allergies Allergy/AdvReac Type Severity Reaction Status Date / Time codeine AdvReac NAUSEA/VOMI Verified 06/01/17 11:13 TING Home Medications: Home Medication List Medication Instructions Recorded Confirmed Last Taken Type Clonidine [Catapres] 0.1 mg PO DAILY 09/17/15 06/01/17 06/01/17 09:00 History Metformin [Glucophage] 500 mg PO DAILY 09/17/15 06/01/17 06/01/17 09:00 History Amlodipine Besylate 10 mg PO DAILY 06/01/17 06/01/17 06/01/17 09:00 History Carvedilol 25 mg PO BID 06/01/17 06/01/17 06/01/17 09:00 History Cholecalciferol (Vitamin D3) 1,000 unit PO DAILY 06/01/17 06/01/17 06/01/17 09:00 History [Vitamin D3] Clonidine HCl 0.2 mg PO HS 06/01/17 06/01/17 05/31/17 21:00 History Docusate Sodium 100 mg PO DAILY 06/01/17 06/01/17 06/01/17 09:00 History Garlic 1 each PO DAILY 06/01/17 06/01/17 06/01/17 09:00 History Levocetirizine Dihydrochloride 5 mg PO PRN PRN 06/01/17 06/01/17 Unknown History [Xyzal] Metformin [Glucophage] 1,000 mg PO HS 06/01/17 06/01/17 05/31/17 21:00 History Multivit with Calcium,Iron,Min 1 each PO EVERY OTHER DAY 06/01/17 06/01/17 Unknown History [Womens Multiple Vitamins] [place]-3 Fatty Acids/Fish Oil [Fish 1 each PO DAILY 06/01/17 06/01/17 06/01/17 09:00 History Oil 1,000 mg Capsule] Potassium Chloride 1 tab PO DAILY 06/01/17 06/01/17 06/01/17 09:00 History Ranitidine [Zantac] 150 mg PO DAILY 06/01/17 06/01/17 Unknown History Rosuvastatin Calcium 1 tab PO HS 06/01/17 06/01/17 Unknown History - History of Present Illness -Gen Adult Nature of Presenting Problems: Patient is an 84 year ol female with a pmh significant for HTN, and CHF presenting today with 3 days onset dyspnea that is progressively worsening. Review of Systems - Adult - REVIEW OF SYSTEMS - ADULT Constitutional: reports: fatidunia. denies: chills, fever Eyes: reports: no symptoms reported Ears, Nose, Mouth & Throat: reports: no symptoms reported Cardiovascular: reports: chest pain, edema (of the pretibial region, at baseline for patient), palpitations, poor circulation Respiratory: reports: chronic cough, cough, dyspnea on exertion, shortness of breath Gastrointestinal: reports: no symptoms reported Genitourinary: reports: no symptoms reported Musculoskeletal: reports: no symptoms reported Integumentary: reports: no symptoms reported Neurological: reports: no symptoms reported Psychiatric: reports: no symptoms reported Endocrine: reports: no symptoms reported Hematologic/Lymphatic: reports: no symptoms reported Allergic/Immunologic: reports: no symptoms reported All Other Systems: Reviewed and Negative Past History - Adult - PAST MEDICAL HISTORY-ADULT Review of Records: reports: Old Records Reviewed, Nursing Assessment Review, Medications Reviewed, Social history reviewed & non-contributory. Cardiovascular: reports: CHF, HTN, other ("rare anemia") Respiratory: reports: sleep apnea (CPAP) Gastrointestinal: reports: GERD Endocrine/Immune: reports: Diabetes Other Conditions: reports: other cancer (skin) - PRIOR SURGERIES/PROCEDURES Surgical/Procedure History: reports: hysterectomy, back/neck - IMMUNIZATION STATUS Childhood Immunizations: See Nurse Assessment Flu Vaccine: See Nurse Assessment - SOCIAL HISTORY Smoking: denies Substance Use: none/never Alcohol Use Frequency: never Physical Exam-General - PHYSICAL EXAM-ADULT Initial Vital Signs Reviewed: Yes - CONSTITUTIONAL General Appearance: appears well, alert, mild distress - HEAD, EARS, NOSE, MOUTH & THROAT HENMT: moist mucous membranes, dental decay - NECK Neck: non-tender, full range of motion, supple, other (prominent JVD on the right side reaching the angle of the mandible) - RESPIRATORY Respiratory: chest non-tender, no pleuratic chest pain, respiratory distress (tachypnea, CASTILLO, orthopnea), crackles (in the lower lobes bilaterally) - CARDIOVASCULAR Cardiovascular: normal peripheral pulses, regular rate, rhythm, no gallop, no murmur, JVD (up to the right angle of the mandible with +HJR). negative: no edema (1+ pretibial edema bilaterally) - GASTROINTESTINAL (ABDOMEN) Abdominal Exam: non tender, soft, no pulsatile mass. negative: normal bowel sounds (decreased bowel sounds) - MUSCULOSKELETAL Extremity: normal range of motion, non-tender, no calf tenderness, pedal edema (1+) Peripheral Pulses: radial (R): 2+, radial (L): 2+ - SKIN Integumentary: normal color, warm/dry. negative: normal turgor - NEUROLOGIC Neurologic: grossly normal - PSYCHIATRIC Psych/Mental Status: normal mood/affect, oriented x 3 Progress - PLAN OF CARE/RESULTS Progress/Plan/Lab Results: Vital Signs - 8 hr 07/30/19 11:37 07/30/19 12:28 07/30/19 12:29 Temperature 97.5 F L Pulse Rate 88 87 87 Respiratory Rate 24 23 24 Blood Pressure 129/79 133/74 O2 Sat by Pulse Oximetry 94 L 91 L 92 L Laboratory Results - last 24 hr 07/30/19 07/30/19 07/30/19 11:57 11:57 11:57 WBC 6.38 RBC 3.48 L Hgb 8.1 L Hct 26.7 L MCV 76.7 L MCH 23.3 L MCHC 30.3 L RDW Std Deviation 17.9 H Plt Count 276 MPV 10.8 H Immature Gran % (Auto) 0.3 Neut % (Auto) 75.4 H Lymph % (Auto) 16.8 L [place] % (Auto) 5.3 Eos % (Auto) 1.4 Baso % (Auto) 0.8 Immature Gran # (Auto) 0.02 Neut # (Auto) 4.81 Lymph # (Auto) 1.07 L [place] # (Auto) 0.34 Eos # (Auto) 0.09 Baso # (Auto) 0.05 PT INR PTT (Actin FS) Sodium 142 Potassium 4.5 Chloride 107 Carbon Dioxide 17 L Anion Gap 18 BUN 28 H Creatinine 1.3 H BUN/Creatinine Ratio 22 Glucose 120 H Calculated Osmolality 290 Calcium 9.0 Total Bilirubin 0.41 AST 78 H ALT 113 H Alkaline Phosphatase 81 Creatine Kinase 107 Troponin T [id number] Pept 4955 H Total Protein 6.4 Albumin 3.5 Globulin 2.9 Albumin/Globulin Ratio 1.2 07/30/19 07/30/19 11:57 12:25 WBC RBC Hgb Hct MCV MCH MCHC RDW Std Deviation Plt Count MPV Immature Gran % (Auto) Neut % (Auto) Lymph % (Auto) [place] % (Auto) Eos % (Auto) Baso % (Auto) Immature Gran # (Auto) Neut # (Auto) Lymph # (Auto) [place] # (Auto) Eos # (Auto) Baso # (Auto) PT 19.6 H INR 1.62 PTT (Actin FS) 36.4 Sodium Potassium Chloride Carbon Dioxide Anion Gap BUN Creatinine BUN/Creatinine Ratio Glucose Calculated Osmolality Calcium Total Bilirubin AST ALT Alkaline Phosphatase Creatine Kinase Troponin T < 0.010 [id number] Pept Total Protein Albumin Globulin Albumin/Globulin Ratio Orders Category Date Time Status Cardiac Monitoring DIRECTED Care 07/30/19 11:42 Active Oxygen Therapy- ED Nursing DIRECTED Care 07/30/19 11:42 Active CHEST-2 VIEWS [RAD] Stat Exams 07/30/19 11:42 Completed CBC WITH ELECTRONIC DIFF [HEME] Stat Lab 07/30/19 11:57 Completed CK PROFILE [SP CHEM] Stat Lab 07/30/19 11:57 Completed COMPREHENSIVE METABOLIC PANEL [CHEM] Stat Lab 07/30/19 11:57 Completed PRO B-NATRIURETIC PEPTIDE Stat Lab 07/30/19 11:57 Completed PROTIME WITH INR [COAG] Stat Lab 07/30/19 12:25 Completed PTT [COAG] Stat Lab 07/30/19 12:25 Completed TROPONIN T Stat Lab 07/30/19 11:57 Completed CP/SOB/Palp >45 yrs of Age Stat Oth 07/30/19 11:42 Ordered EKG [EKG] Stat Ther 07/30/19 11:42 Draft Result Diagrams: 07/30/19 11:57 07/30/19 11:57 - EKG 1 Time of EKG reading by physician:: 11:45 EKG Read and Signed by:: Tayo Simmons EKG Interpretation (*Must complete 3 of following elements*): Abnormal Rate: 87 Rhythm: sinus [facility]: normal QRS: LVH DE Interval: prolonged (1st degree AVB) ST Wave: non-specific ST changes (lateral leads) Prior EKG Comparison: unchanged from prior Comments: 1st degree AVB, LVH, non-specific changes in lateral leads - XRAY 1 XRAY Study: Chest Impression: Abnormal (CHEST-2 VIEWS - 07/30/2019 INDICATION: sob COMPARISON: 06/04/2017 FINDINGS: There are small bilateral pleural effusions. There is COPD. There are ill-defined interstitial infiltrates diffusely and bilaterally. This suggests pulmonary edema. There is a nodular opacity in the lateral left lung base measuring about 1 cm. There is significant cardiomegaly and pulmonary vascular congestion. IMPRESSION: 1. Congestive heart failure. 2. Pulmonary nodule in the left lung base. Electronically signed by Antony Casas 07/30/2019 12:39 PM 07/30/19 1239 Interpreting Physician: Antony Casas MD Dictated Date/Time: 07/30/19 1237 cc: Tayo Simmons MD; Ana Leone MD) - CONSULTS/PCP/HOSPITALIST Notification #1 *Consult/PCP/Hospitalist*: Hospitalist Time Discussed: 17:03 Reason/Comments: CHF exacerbation Consult Disposition: Will see in ED Departure - Departure Date of Disposition Decision: 07/30/19 Time of Disposition Decision: 19:33 DIAGNOSIS: Microcytic anemia, Acute renal insufficiency, Left lower lobe pulmonary nodule Acute exacerbation of congestive heart failure Qualifiers: Heart failure type: combined systolic and diastolic Qualified Code(s): I50.43 - Acute on chronic combined systolic (congestive) and diastolic (congestive) heart failure Fluid overload Qualifiers: Hypervolemia type: unspecified Qualified Code(s): E87.70 - Fluid overload, unspecified Disposition: ADMITTED INPATIENT 09 Certified Medical Emergency: Emergent Condition: Fair - Critical Care Note This patient required my direct & personal management of CC.: No Attestation - Physician/ LAINA Attestation Patient care was provided by Advanced Practice Provider:: No The physician spent face to face time with patient:: Yes Advanced Practice Provider documentation review:: Supervising physician onsite and consulted in the evaluation and care of this patient. The physician did have a face to face encounter with the patient.
[2019-07-30] MEDS ORDERED: LASIX IV ONE (15:00)
[2019-07-30] MEDS ORDERED: ZOFRAN IV PRN (18:02)
--- NOTE | 2019-07-30 20:59 | HISTORY AND PHYSICAL ---
CHIEF COMPLAINT: Shortness of breath, weakness. HPI: This is a very pleasant 84-year-old female with a history of congestive heart failure, hypertension, anemia, sleep apnea, diabetes mellitus, and atrial fibrillation. She presents to the emergency room complaining of increasing shortness of breath, PND and orthopnea that has progressed over the last 4 to 6 weeks and she states over the last 3 days she has had 60 to 90 degree orthopnea. She has had some increase in her lower extremity edema. She denied any chest pain or palpitations. Ms. Bruce has a history is of sleep apnea. She has undergone a sleep study and she does have CPAP although she states that she does not use it often. She did state that during these last weeks that when she did use it she slept better and was able to lay "a little flatter in the bed." PAST MEDICAL HISTORY: 1. Atrial fibrillation/atrial flutter maintained on Eliquis. 2. Aortic insufficiency. 3. Mitral regurgitation. 4. Hyperlipidemia. 5. Diabetes mellitus. 6. Chronic kidney disease. 7. Anemia. PAST SURGICAL HISTORY: Hysterectomy, back surgery and cyst removed from behind right ear. SOCIAL HISTORY: She denies alcohol, tobacco or illicit drug use. She does have daughters that live close and very active in her care. ALLERGIES: Codeine which causes nausea, vomiting. HOME MEDICATIONS: A list will be obtained by the nursing staff, once verified review and restart as appropriate. REVIEW OF SYSTEMS: Discussed with patient with pertinent positives stated in the HPI. She denied any syncope or dizziness, any chest pain or palpitations, a productive cough, any fevers or chills, any nausea, vomiting, diarrhea, constipation, black or bloody vomitus or stools, hematuria, dysuria, frequency, urgency. PHYSICAL EXAMINATION: GENERAL: This is an 84-year-old female who is sitting up on the stretcher in the emergency room in no distress. VITAL SIGNS: Blood pressure is 139/73 with a heart rate of 88, respirations are 16, temperature is 97.5 degrees oral with room air saturations 98%. HEENT: Head is normocephalic, atraumatic. Mucous membranes are moist. NECK: Supple with trachea midline with JVD noted. CARDIOVASCULAR: Regular rate and rhythm. S1 and S2 appreciated. No murmur. She has bilateral pretibial edema up to the knees, calves are nontender bilateral with peripheral pulses palpable x4 extremities. PULMONARY: She does have crackles in the lower lobes bilaterally. Chest rises falls symmetric with respiration. She has no increased work of breathing noted. GASTROINTESTINAL: Abdomen soft, nontender, nondistended with bowel sounds in all 4 quadrants. NEUROLOGIC: She is alert, oriented x3. SKIN: Warm and dry. LABS: WBC is 6.3 with hemoglobin 8.1, hematocrit 26.7, platelets of 276,000. INR is 1.62. Sodium 142, potassium 4.5, BUN 28, creatinine 1.3 with a glucose of 120. Troponin is negative. ProBNP is 4955. Chest x-ray reveals congestive heart failure with a 1 cm nodular opacity in the left lung base with significant cardiomegaly and pulmonary vascular congestion. EKG sinus rhythm with a first-degree AV block at a rate of 87. ASSESSMENT AND PLAN: 1. Congestive heart failure exacerbation/pulmonary edema. 2. Chronic kidney disease with a baseline creatinine of 1.3. 3. Diabetes mellitus type 2. 4. History of atrial fibrillation /flutter currently in sinus rhythm 5. Aortic insufficiency. 6. History of mitral regurgitation. PLAN: Patient will be admitted to the medical floor, placed on telemetry. with supplemental oxygen as needed. IV Lasix diuresis Daily weight, strict I and O, will identify her home medications and continue as appropriate. Course will continue her Eliquis. anemia profile,CBC and a renal profile in the morning. Plan was discussed with Dr. Santos. Further treatments pending hospital course. Dictated by GIRISH Hernandez for Kingston Hodge MD cc: GIRISH Hernandez MD [facility]
[2019-07-30] MEDS ORDERED: LASIX IV SCH (21:00)
[2019-07-30 21:21] LABS: URINE SOURCE CLEAN CATCH
[2019-07-30 21:31] LABS: BILIRUBIN URINE NEGATIVE (NEGATIVE); BLOOD URINE NEGATIVE (NEGATIVE); COLOR STRAW; GLUCOSE URINE NEGATIVE (NEGATIVE); KETONE URINE NEGATIVE (NEGATIVE); LEUKOCYTES URINE NEGATIVE (NEGATIVE); NITRITE URINE NEGATIVE (NEGATIVE); PROTEIN URINE NEGATIVE (NEGATIVE); SP GRAVITY URINE 1.009; TURBIDITY URINE CLEAR (CLEAR); UROBILINOGEN URINE NORMAL (NORMAL)
[2019-07-30 21:33] LABS: UR EPITHELIAL CELLS <10 /HPF (<10); URINE BACTERIA NEGATIVE /HPF; URINE RBC <10 /HPF (<10); URINE WBC <10 /HPF (<10)
[2019-07-30] MEDS: ELIQUIS PO SCH (22:07)
--- NOTE | 2019-07-30 23:07 | HISTORY AND PHYSICAL ---
ADDENDUM TO HISTORY AND PHYSICAL: The patient seen and examined by me [id number]. All the laboratory, vital signs and images were reviewed. The patient came into the emergency department due to shortness of breath. She has a medical history of chronic kidney disease, atrial fibrillation, hypertension. Last echocardiogram was done this year on 02/22/2019 and showed a normal left ventricular size, mild left ventricular hypertrophy with posterior and interventricular septal wall thickness of 0.9 and 1.3 cm. Normal left ventricular systolic function is estimated at 55% with normal wall motion, normal right ventricular size and systolic function. Like I said, she presented to the emergency department with a chief complaint of shortness of breath. Apparently, this happened also 1 month ago and they went to another hospital. She received 1 dose of Lasix daily p.o. for 5 days and then stopped and she felt better. After treating her here with 1 dose of Lasix IV, she feels much better as well, so we are going to keep her overnight to monitor this patient and follow her clinically. As per the family, she is on hydrochlorothiazide. Pending at this moment, her medications that I will reconcile. X- ray showed pulmonary nodule in the left lung base and she has bilateral pleural effusion, pulmonary edema. I will continue with same management for now. She has been placed on Lasix, and also I will continue with her Eliquis, Zofran for possible nausea and vomiting. She has some elevated AST, ALT, but likely this is congestive. Her proBNP is elevated at 4955, a little bit higher than before, but not that much. I agree with the rest of the nurse practitioner's assessment and plan. cc: Kingston Hodge MD
[2019-07-31 07:33] LABS: BASO# 0.04 X1000 (0.0-0.2); BASO% 0.7 % (0.0-0.8); EOS# 0.27 X1000 (0.0-0.7); EOS% 4.9 % (0.0-10.0); HEMATOCRIT 27.7 % (37.0-47.0); HEMOGLOBIN 8.5 g/dL (12.0-16.0); LYMPH# 1.29 X1000 (1.2-3.4); LYMPH% 23.5 % (20.5-51.1); MCH 23.4 PG (27-31); MCHC 30.7 g/dL (33-37); MCV 76.1 FL (81-99); MONO# 0.55 X1000 (0.11-0.59); MPV 10.7 FL (7.4-10.4); NEUT# 3.35 X1000 (1.4-6.5); NEUT% 60.9 % (42.2-75.2); PLT 282 X1000 (130-400); RBC 3.64 XMIL (4.2-5.4); RDW 17.7 % (11.5-14.5)
[2019-07-31 07:45] LABS: ALBUMIN 3.4 g/dL (3.5-5.0); CREATININE 1.2 mg/dL (0.5-0.9); IRON SATURATION 67 %; PHOSPHORUS 3.9 mg/dL (2.7-4.5); POTASSIUM 3.7 mmol/L (3.5-5.1); TIBC 367 ug/dL; TOTAL IRON 245 ug/dL (49-151); UNBOUND IRON 122 ug/dL (112-346)
--- NOTE | 2019-07-31 08:06 | Diag Imaging Result Doc PS360 ---
EXAM: CT THORAX W/O CONTRAST 07/31/2019 HISTORY: pulm nodule TECHNIQUE: This exam was performed using automated exposure control, adjustment of mA or kV according to patient size, and/or use of iterative reconstruction technique. COMMENT: There are no previous studies available for comparison. There is a right pleural effusion. A small amount of fluid is present on the left. There is some thickening of the mucosa of the distal esophagus. There are calcified nodes in the left hilum and subcarina and in the aorticopulmonary window. There are some noncalcified paratracheal and prevascular nodes which are nonspecific in appearance. There are coronary calcifications. There is atelectasis versus pneumonia in both lower lobes particularly in the right lower lobe. There are air bronchograms. There is a densely calcified granuloma in the posterior left upper lobe. Another is present in the lower lingula. There is a noncalcified nodule in the right middle lobe adjacent to the major fissure on image 68 measuring 8 mm in diameter. This may be a node in the fissure. There is a tiny nodule adjacent to the pleura in the right upper lobe on image 47. The nodule described on the plain radiograph of 07/30/2019 is not clearly identifiable. The regional skeleton appears to be intact. IMPRESSION: Bilateral pleural effusions and bronchopneumonia. Other nonacute findings as described above. Electronically signed by Jonathan Vazquez 07/31/2019 8:03 AM
[2019-07-31] MEDS: ELIQUIS PO SCH (08:18)
[2019-07-31] MEDS ORDERED: COREG PO SCH (09:00)
[2019-07-31] MEDS ORDERED: LASIX IV SCH (09:00)
[2019-07-31] MEDS ORDERED: CORDARONE PO SCH (09:00)
[2019-07-31] MEDS ORDERED: PEPCID PO SCH (09:00)
[2019-07-31] MEDS ORDERED: ROCEPHIN 1 GM in NS 50 ML IV SCH (12:00)
[2019-07-31 15:14] VITALS: BP 140/75
[2019-07-31] MEDS ORDERED: NORVASC PO SCH (21:00)
[2019-07-31] MEDS ORDERED: CRESTOR PO SCH (21:00)
--- NOTE | 2019-08-01 12:29 | DISCHARGE SUMMARY ---
ADMISSION DATE: 07/30/2019 DISCHARGE DATE: 07/31/2019 DISCHARGE DIAGNOSES: 1. Congestive heart failure exacerbation/pulmonary edema. 2. Chronic kidney disease. 3. Diabetes. 4. History of atrial fibrillation, currently in sinus rhythm. 5. Aortic insufficiency. 6. History of mitral regurgitation. HOSPITAL COURSE: This is an 84-year-old, -[place] female with a past medical history of CHF, hypertension, anemia, sleep apnea, diabetes, atrial fibrillation, presented to the emergency department with the chief complaint of shortness of breath, PND, and orthopnea that has been progressed over the past 4 to 6 weeks. She states that over the last 3 to 4 days, she had 60 to 90 degrees of orthopnea. She has had an increase of her lower extremity edema. She denied any chest pain or palpitations. She uses a CPAP machine, although it is not often. We did an x-ray that showed CHF and a pulmonary nodule in the left lung base. She receive an initial dose of Lasix in the emergency department and then we continued with Lasix the next day. We did a CT scan because of the pulmonary nodule and it shows bilateral pleural effusion and possible bronchopneumonia. It also showed some nodules, one of then measuring 8 mm in diameter. I talked to the patient and the family, and told them to follow up with the primary care doctor and especially her buggy man/oncologist, Dr. Guevara, since he is taking care of her anemia as well. The patient feels much better today. Actually, I requested an evaluation to see if she needs oxygen to go home with but she does not require any. After walking, her oxygen saturation was 95%. This patient will be discharged. Basically, I will continue with her home medications except that I will add some antibiotics to complete 5 days and also Lasix 20 mg p.o. daily. I want her to be seen by her primary care doctor in 1 week and also by her lithograph printer in 2 or 3 weeks, Dr. Marty Chung. At the moment of discharge, this patient was in a stable medical condition, tolerating p.o. She was not complaining of chest pain or shortness of breath. Actually, her bilateral lower extremities were better. PROCEDURES PERFORMED: Chest x-ray dated 07/30/2019. Impression: CHF, pulmonary nodule in the left lung base. Chest CT scan dated 08/02/2019. Impression: Bilateral pleural effusion and bronchopneumonia, multiple nodules. PHYSICAL EXAMINATION: Vital Signs: Temperature 98.1 degrees, pulse 89, respiratory rate 19, blood pressure 140/75, oxygen saturation 95% on room air. HEENT: Head normocephalic. No trauma. PERRLA. Neck: Supple. No JVD. No masses. Central trachea. Chest: Clear to auscultation. Some crepitus at the bases. Abdomen: Soft, nontender, nondistended. No hepatosplenomegaly. Extremities: Trace to 1+ lower extremity edema. No clubbing. No cyanosis. Neurological Examination: The patient is alert. She is oriented x3. No focal deficits. LABORATORY DATA: WBC 5.5, hemoglobin 8.5, hematocrit 27.7, platelet count 282,000. Sodium 137, potassium 3.7, chloride 100, bicarbonate 23, BUN 24, creatinine 1.2, glucose 97, calcium 9, phosphorus 3.9, albumin 3.4. DISCHARGE MEDICATIONS: 1. Amiodarone 200 mg p.o. daily. 2. Amlodipine 10 mg p.o. at bedtime. 3. Eliquis 5 mg p.o. b.i.d. 4. Carvedilol 25 mg p.o. b.i.d. 5. Keflex 500 mg p.o. b.i.d. for 4 more days. 6. Vitamin D3 with 1000 units p.o. daily. 7. Clonidine 0.2 mg p.o. at bedtime and 0.1 mg p.o. in the morning. 8. Famotidine 10 mg p.o. daily. 9. Furosemide 20 mg p.o. daily. 10. Metformin 500 mg p.o. b.i.d. 11. Xyzal 5 mg p.o. as needed. 12. Singulair 10 mg p.o. daily. 13. [place]-3 fish oil 1 tablet p.o. b.i.d. 14. Potassium chloride 10 mEq p.o. tablet daily. 15. Crestor 1 tablet p.o. at bedtime, 5 mg tablet. 16. Multivitamins daily. cc: Kingston Hodge MD
== END 2019-07-31 18:25 | disposition home or self-care (01) | DRG 291 ==
LOC: ED 11:26 → EDIPHOLD 18:40 → 3N 19:49
PROVIDERS: ATTEND Internal Medicine

== ENCOUNTER 2019-09-18 10:48 | Inpatient (IN) ==
[2019-09-18] MEDS ORDERED: ASPIRIN PO ONE (11:07)
--- NOTE | 2019-09-18 11:14 | EKG Report ---
Test Performed on : 09/18/2019 10:58:51 AM Test Reason : palpitations Blood Pressure : / mmHG Vent. Rate : 070 BPM Atrial Rate : 070 BPM P-R Int : 202 ms QRS Dur : 080 ms QT Int : 452 ms P-R-T Axes : 050 -09 -60 degrees QTc Int : 488 ms Normal sinus rhythm. Left ventricular hypertrophy with repolarization abnormality Abnormal ECG When compared with ECG of 12-SEP-2019 11:47, No significant change was found Unconfirmed Result
--- NOTE | 2019-09-18 11:39 | Diag Imaging Result Doc PS360 ---
CHEST-2 VIEWS - 09/18/2019 INDICATION: palpitations COMPARISON: 07/30/2019 FINDINGS: There is mild cardiomegaly. There are small bilateral pleural effusions similar to prior. There is pulmonary vascular congestion. There is hazy interstitial pulmonary edema in the lung bases bilaterally. IMPRESSION: Congestive heart failure. Electronically signed by Antony Casas 09/18/2019 11:40 AM
[2019-09-18 13:20] LABS: BASO# 0.03 X1000 (0.0-0.2); BASO% 0.4 % (0.0-0.8); EOS# 0.31 X1000 (0.0-0.7); HEMATOCRIT 30.1 % (37.0-47.0); HEMOGLOBIN 9.1 g/dL (12.0-16.0); LYMPH# 1.36 X1000 (1.2-3.4); LYMPH% 17.4 % (20.5-51.1); MCH 23.8 PG (27-31); MCHC 30.2 g/dL (33-37); MCV 78.6 FL (81-99); MONO# 0.54 X1000 (0.11-0.59); MONO% 6.9 % (1.7-9.3); MPV 10.6 FL (7.4-10.4); NEUT# 5.58 X1000 (1.4-6.5); NEUT% 71.3 % (42.2-75.2); PLT 266 X1000 (130-400); RBC 3.83 XMIL (4.2-5.4); RDW 17.4 % (11.5-14.5); WBC 7.82 X1000 (4.8-10.8)
[2019-09-18 13:40] LABS: INR 1.41; PROTIME 17.5 Seconds (11.0-16.0)
[2019-09-18 13:41] LABS: PTT 36.4 Seconds (22.3-41.8)
[2019-09-18 13:55] LABS: ALB/GLOB RATIO 1.1; ALBUMIN 3.5 g/dL (3.5-5.0); CALCIUM 8.6 mg/dL (8.8-10.2); CREATININE 1.2 mg/dL (0.5-0.9); POTASSIUM 4.3 mmol/L (3.5-5.1); TOTAL BILIRUBIN 0.42 mg/dL (0.20-1.00); TOTAL PROTEIN 6.6 g/dL (6.3-8.3)
--- NOTE | 2019-09-18 16:34 | PROVIDER DOCUMENTATION ---
HPI-Screening - General Chief Complaint: Palpitations Stated Complaint: HEART RACING HEART PATIENT Time Seen by Provider: 09/18/19 16:25 Source: patient Allergies/Adverse Reactions: Allergies Allergy/AdvReac Type Severity Reaction Status Date / Time nut - unspecified Allergy ANAPHYLAXIS Verified 09/11/19 11:14 codeine AdvReac NAUSEA/VOMI Verified 09/11/19 11:14 TING Home Medications: Home Medication List Medication Instructions Recorded Confirmed Last Taken Type Metformin [Glucophage] 500 mg PO BID 09/17/15 09/12/19 09/11/19 21:00 History Amlodipine Besylate 10 mg PO DAILY 06/01/17 09/12/19 09/11/19 21:00 History Carvedilol 25 mg PO BID 06/01/17 09/12/19 09/12/19 07:30 History Potassium Chloride 1 tab PO DAILY 06/01/17 09/12/19 09/12/19 07:30 History Rosuvastatin Calcium 1 tab PO EVERY OTHER DAY 06/01/17 09/12/19 09/11/19 22:00 History Amiodarone [Cordarone] 200 mg PO DAILY 07/30/19 09/12/19 09/12/19 07:30 History Apixaban [Eliquis] 5 mg PO BID 07/30/19 09/12/19 09/12/19 07:30 History Montelukast Sodium [Singulair] 10 mg PO DAILY 07/30/19 09/12/19 09/12/19 07:30 History Albuterol Sulfate Inhaler 2 puff INH 4XDAY PRN 09/11/19 09/12/19 09/11/19 12:00 History [Ventolin Hfa] Diphenhydramine HCl [Benadryl 25 mg PO DAILY PRN 09/11/19 09/12/19 Unknown History Allergy] Furosemide [Lasix] 30 mg PO DAILY 09/11/19 09/12/19 09/12/19 07:30 History Levothyroxine Sodium 50 mcg PO DAILY 09/11/19 09/12/19 09/12/19 07:30 History Multivitamin with Minerals [One 1 tab PO EVERY OTHER DAY 09/11/19 09/12/19 09/11/19 07:30 History Daily Complete] Mv-Mn/Iron/Folic Acid/Herb 190 1 tab PO DAILY 09/11/19 09/12/19 09/12/19 07:30 History [Vitamin D3 Complete Caplet] [place]-3 Fatty Acids/Fish Oil [Fish 1,000 mg PO DAILY 09/11/19 09/12/19 09/11/19 07:30 History Oil 1,000 mg Capsule] Polyethylene Glycol 3350 [Miralax] 1 dose PO DAILY PRN 09/11/19 09/12/19 Unknown History Ranitidine [Zantac] 150 mg PO DAILY PRN 09/11/19 09/12/19 Unknown History Patient arrived via EMS?: No HPI: 84yof present to ER With c/o SOB and palpitations. Pt reports she had a cardioversion last week per Dr Chung. Pt reports productive cough with clear phlegm and blood tinged. Pt reports SOB with minimal exertion. Physical Exam-Screening - CONSTITUTIONAL General Appearance: alert, mild distress - RESPIRATORY Respiratory: lungs clear, normal breath sounds, no accessory muscle use, increased rate - CARDIOVASCULAR Cardiovascular: regular rate, rhythm, other (3+ pitting edema BLE) - MUSCULOSKELETAL Back Exam: normal inspection - SKIN Integumentary: normal color, warm/dry. negative: diaphoresis - PSYCHIATRIC Psych/Mental Status: normal mood/affect, normal thought content, normal thought process, oriented x 3 Screening Depart - Departure ED Screening Disposition: Continued in ED for Treatment Date of Disposition Decision: 09/18/19 Time of Disposition Decision: 16:33 DIAGNOSIS: Acute exacerbation of congestive heart failure Qualifiers: Heart failure type: unspecified Qualified Code(s): I50.9 - Heart failure, unspecified Referrals and Follow-Ups: Ana Leone MD [Primary Care Provider] - Attestation - Physician/ LAINA Attestation Patient care was provided by Advanced Practice Provider:: Yes Advanced Practice Provider:: Juan Pablo Piedra Advanced Practice Provider documentation review:: The Mid-level provider documentation, treatment plan and medical decision making was reviewed by the physician who agrees with all treatment and medical decision making by the MLP. The physician spent face to face time with patient:: No Advanced Practice Provider documentation review:: Supervising physician onsite and consulted in the evaluation and care of this patient. The physician did not have a face to face encounter with the patient.
[2019-09-18] MEDS ORDERED: LASIX IV ONE (16:40)
--- NOTE | 2019-09-18 16:44 | PROVIDER DOCUMENTATION ---
HPI-Cardiac General - General Chief Complaint: Palpitations Stated Complaint: HEART RACING HEART PATIENT Time Seen by Provider: 09/18/19 16:25 Source: patient Allergies/Adverse Reactions: Patient Allergies Allergy/AdvReac Type Severity Reaction Status Date / Time nut - unspecified Allergy ANAPHYLAXIS Verified 09/11/19 11:14 codeine AdvReac NAUSEA/VOMI Verified 09/11/19 11:14 TING Home Medications: Home Medication List Medication Instructions Recorded Confirmed Last Taken Type Metformin [Glucophage] 500 mg PO BID 09/17/15 09/12/19 09/11/19 21:00 History Amlodipine Besylate 10 mg PO DAILY 06/01/17 09/12/19 09/11/19 21:00 History Carvedilol 25 mg PO BID 06/01/17 09/12/19 09/12/19 07:30 History Potassium Chloride 1 tab PO DAILY 06/01/17 09/12/19 09/12/19 07:30 History Rosuvastatin Calcium 1 tab PO EVERY OTHER DAY 06/01/17 09/12/19 09/11/19 22:00 History Amiodarone [Cordarone] 200 mg PO DAILY 07/30/19 09/12/19 09/12/19 07:30 History Apixaban [Eliquis] 5 mg PO BID 07/30/19 09/12/19 09/12/19 07:30 History Montelukast Sodium [Singulair] 10 mg PO DAILY 07/30/19 09/12/19 09/12/19 07:30 History Albuterol Sulfate Inhaler 2 puff INH 4XDAY PRN 09/11/19 09/12/19 09/11/19 12:00 History [Ventolin Hfa] Diphenhydramine HCl [Benadryl 25 mg PO DAILY PRN 09/11/19 09/12/19 Unknown History Allergy] Furosemide [Lasix] 30 mg PO DAILY 09/11/19 09/12/19 09/12/19 07:30 History Levothyroxine Sodium 50 mcg PO DAILY 09/11/19 09/12/19 09/12/19 07:30 History Multivitamin with Minerals [One 1 tab PO EVERY OTHER DAY 09/11/19 09/12/19 09/11/19 07:30 History Daily Complete] Mv-Mn/Iron/Folic Acid/Herb 190 1 tab PO DAILY 09/11/19 09/12/19 09/12/19 07:30 History [Vitamin D3 Complete Caplet] [place]-3 Fatty Acids/Fish Oil [Fish 1,000 mg PO DAILY 09/11/19 09/12/19 09/11/19 07:30 History Oil 1,000 mg Capsule] Polyethylene Glycol 3350 [Miralax] 1 dose PO DAILY PRN 09/11/19 09/12/19 Unknown History Ranitidine [Zantac] 150 mg PO DAILY PRN 09/11/19 09/12/19 Unknown History - History of Present Illness-Cardiac Nature of Presenting Problem: 84yof present to ER With c/o SOB and palpitations. Pt reports she had a cardioversion last week per Dr Chung. Pt has noticed increased edema. Reports SOB with minimal exertion. Also reports cough with productive clear blood tinged sputum. Quality of Pain: reports: none Onset/Duration: 3 days ago Timing: still present Palpitation Quality: fast/pounding heart beat Associated Symptoms: reports: diaphoresis, dizziness, shortness of breath. denies: fever/chills, syncope Review of Systems - Adult - REVIEW OF SYSTEMS - ADULT Constitutional: reports: no symptoms reported. denies: fever Eyes: reports: no symptoms reported Ears, Nose, Mouth & Throat: reports: no symptoms reported Cardiovascular: reports: see HPI, edema, orthopnea, palpitations. denies: chest pain Respiratory: reports: see HPI, cough, dyspnea on exertion, shortness of breath Gastrointestinal: reports: no symptoms reported. denies: vomiting Genitourinary: reports: no symptoms reported Musculoskeletal: reports: no symptoms reported Integumentary: reports: no symptoms reported Neurological: reports: no symptoms reported Psychiatric: reports: no symptoms reported Endocrine: reports: no symptoms reported Hematologic/Lymphatic: reports: no symptoms reported Allergic/Immunologic: reports: no symptoms reported All Other Systems: Reviewed and Negative Past History - Adult - PAST MEDICAL HISTORY-ADULT Review of Records: reports: Old Records Reviewed, Nursing Assessment Review, Medications Reviewed, Social history reviewed & non-contributory. Major Childhood Illnesses: reports: denies history Cardiovascular: reports: CHF, HTN, other ("rare anemia") Respiratory: reports: sleep apnea (CPAP) Gastrointestinal: reports: GERD Obstetrical/Gynecological: reports: denies history Genitourinary: reports: denies history Musculoskeletal: reports: denies history Neurological: reports: denies history Endocrine/Immune: reports: Diabetes Other Conditions: reports: other cancer (skin) - PRIOR SURGERIES/PROCEDURES Surgical/Procedure History: reports: hysterectomy, back/neck - IMMUNIZATION STATUS Childhood Immunizations: See Nurse Assessment Flu Vaccine: See Nurse Assessment Physical Exam-General - PHYSICAL EXAM-ADULT Initial Vital Signs Reviewed: Yes - CONSTITUTIONAL General Appearance: alert, mild distress, anxious - HEAD, EARS, NOSE, MOUTH & THROAT HENMT: moist mucous membranes, normal ENT inspection. negative: angioedema - NECK Neck: full range of motion, supple, normal inspection - RESPIRATORY Respiratory: lungs clear, normal breath sounds, no accessory muscle use, i ncreased rate. negative: stridor, wheezing, retractions - CARDIOVASCULAR Cardiovascular: regular rate, rhythm, other (3+ pitting edema BLE) - MUSCULOSKELETAL Back Exam: normal inspection, no vertebral tenderness Extremity: normal range of motion, normal gait, pedal edema. negative: deformity, erythema - SKIN Integumentary: normal color, warm/dry - NEUROLOGIC Neurologic: grossly normal - PSYCHIATRIC Psych/Mental Status: normal thought content, normal thought process, oriented x 3 - HEART Score HEART Score: History: Slightly Suspicious HEART Score: ECG: Non-Specific Repolarization Disturbance/LBBB/PM HEART Score: Age: > or = 65 Years HEART Score: Risk Factors for Atherosclerotic Disease: 1 or 2 Risk Factors HEART Score: Troponin: 1-3x Normal Limit Total HEART Score:: 5 Progress - PLAN OF CARE/RESULTS Progress/Plan/Lab Results: Vital Signs - 8 hr 09/18/19 10:52 09/18/19 13:07 Temperature 98.4 F Pulse Rate 76 76 Respiratory Rate 18 18 Blood Pressure 124/66 147/76 O2 Sat by Pulse Oximetry 93 L 93 L Laboratory Results - last 24 hr 09/18/19 09/18/19 09/18/19 13:08 13:08 13:08 WBC 7.82 RBC 3.83 L Hgb 9.1 L Hct 30.1 L MCV 78.6 L MCH 23.8 L MCHC 30.2 L RDW Std Deviation 17.4 H Plt Count 266 MPV 10.6 H Immature Gran % (Auto) 0.0 Neut % (Auto) 71.3 Lymph % (Auto) 17.4 L [place] % (Auto) 6.9 Eos % (Auto) 4.0 Baso % (Auto) 0.4 Immature Gran # (Auto) 0.00 Neut # (Auto) 5.58 Lymph # (Auto) 1.36 [place] # (Auto) 0.54 Eos # (Auto) 0.31 Baso # (Auto) 0.03 PT INR PTT (Actin FS) Sodium 140 Potassium 4.3 Chloride 108 H Carbon Dioxide 20 L Anion Gap 12 BUN 21 Creatinine 1.2 H Estimated GFR/1.73 m2 52 BUN/Creatinine Ratio 18 Glucose 122 H Calculated Osmolality 284 Calcium 8.6 L Total Bilirubin 0.42 AST 60 H ALT 83 H Alkaline Phosphatase 77 Creatine Kinase 100 Troponin T High Sens [id number]-G-Imrmjqojeho Pept 6466 H Total Protein 6.6 Albumin 3.5 Globulin 3.1 Albumin/Globulin Ratio 1.1 09/18/19 09/18/19 13:08 13:08 WBC RBC Hgb Hct MCV MCH MCHC RDW Std Deviation Plt Count MPV Immature Gran % (Auto) Neut % (Auto) Lymph % (Auto) [place] % (Auto) Eos % (Auto) Baso % (Auto) Immature Gran # (Auto) Neut # (Auto) Lymph # (Auto) [place] # (Auto) Eos # (Auto) Baso # (Auto) PT 17.5 H INR 1.41 PTT (Actin FS) 36.4 Sodium Potassium Chloride Carbon Dioxide Anion Gap BUN Creatinine Estimated GFR/1.73 m2 BUN/Creatinine Ratio Glucose Calculated Osmolality Calcium Total Bilirubin AST ALT Alkaline Phosphatase Creatine Kinase Troponin T High Sens 20 H [id number] Pept Total Protein Albumin Globulin Albumin/Globulin Ratio Orders Category Date Time Status Cardiac Monitoring DIRECTED Care 09/18/19 11:07 Active Nursing- Obtain EKG ONCE Care 09/18/19 16:45 Active Oxygen Therapy- ED Nursing DIRECTED Care 09/18/19 11:07 Active Saline Loc NOW Care 09/18/19 11:07 Active CHEST-2 VIEWS [RAD] Stat Exams 09/18/19 11:07 Completed CBC WITH ELECTRONIC DIFF [HEME] Stat Lab 09/18/19 13:08 Completed CK PROFILE [SP CHEM] Stat Lab 09/18/19 13:08 Completed COMPREHENSIVE METABOLIC PANEL [CHEM] Stat Lab 09/18/19 13:08 Completed PRO B-NATRIURETIC PEPTIDE Stat Lab 09/18/19 13:08 Completed PROTIME WITH INR [COAG] Stat Lab 09/18/19 13:08 Completed PTT [COAG] Stat Lab 09/18/19 13:08 Completed TROPONIN T HIGH SENSITIVITY Stat Lab 09/18/19 13:08 Completed TROPONIN T HIGH SENSITIVITY Stat Lab 09/18/19 16:45 Uncollected Aspirin Med 09/18/19 11:07 Discontinued 325 mg PO NOW ONE Furosemide [Lasix] Med 09/18/19 16:40 Discontinued 60 mg IV NOW ONE CP/SOB/Palp >45 yrs of Age Stat Oth 09/18/19 11:07 Ordered EKG [EKG] Stat Ther 09/18/19 11:07 Draft EKG [EKG] Stat Ther 09/18/19 16:45 Ordered Transfer/Admit Order [TRANSFER] Routine Transfer 09/18/19 17:16 Ordered Result Diagrams: 09/18/19 13:08 09/18/19 13:08 - EKG 1 Time of EKG reading by physician:: 10:58 EKG Read and Signed by:: Tayo Simmons EKG Interpretation (*Must complete 3 of following elements*): Abnormal Rate: 70 Rhythm: NSR QRS: LVH Comments: repolarization abnormality - XRAY 1 XRAY Study: Chest Impression: See EMR Report ( CHEST-2 VIEWS - 09/18/2019 INDICATION: palpitations COMPARISON: 07/30/2019 FINDINGS: There is mild cardiomegaly. There are small bilateral pleural effusions similar to prior. There is pulmonary vascular congestion. There is hazy interstitial pulmonary edema in the lung bases bilaterally. IMPRESSION: Congestive heart failure. Electronically signed by Antony Casas 09/18/2019 11:40 AM) - CONSULTS/PCP/HOSPITALIST Notification #1 *Consult/PCP/Hospitalist*: Dr Fernando, hospitalist Time Discussed: 16:45 Consult Disposition: Will see in ED, Admit Departure - Departure Date of Disposition Decision: 09/18/19 Time of Disposition Decision: 17:49 DIAGNOSIS: Palpitations, Shortness of breath Acute exacerbation of congestive heart failure Qualifiers: Heart failure type: unspecified Qualified Code(s): I50.9 - Heart failure, unspecified Fluid overload Qualifiers: Hypervolemia type: unspecified Qualified Code(s): E87.70 - Fluid overload, unspecified Disposition: ADMITTED INPATIENT 09 Certified Medical Emergency: Emergent Condition: Fair Referrals and Follow-Ups: Ana Leone MD [Primary Care Provider] - - Critical Care Note This patient required my direct & personal management of CC.: No Attestation - Physician/ LAINA Attestation Patient care was provided by Advanced Practice Provider:: Yes Advanced Practice Provider:: Juan Pablo Piedra Advanced Practice Provider documentation review:: The Mid-level provider documentation, treatment plan and medical decision making was reviewed by the physician who agrees with all treatment and medical decision making by the MLP. The physician spent face to face time with patient:: No Advanced Practice Provider documentation review:: Supervising physician onsite and consulted in the evaluation and care of this patient. The physician did not have a face to face encounter with the patient.
[2019-09-18 18:25] LABS: HEMOGLOBIN A1C 5.6 % (4.8-6.0)
[2019-09-18] MEDS ORDERED: MIRALAX PO PRN (18:45)
[2019-09-18] MEDS ORDERED: ZOFRAN IV PRN (18:45)
[2019-09-18] MEDS: LASIX IV SCH (21:00)
[2019-09-18] MEDS: HUMALOG SUBQ SCH (21:00)
--- NOTE | 2019-09-18 22:11 | HISTORY AND PHYSICAL ---
CHIEF COMPLAINT: Palpitations. PRIMARY CARE PHYSICIAN: Ana Leone MD. PRIMARY CHIEF ANALYTICS OFFICER.: Marty Chung MD. HISTORY OF PRESENT ILLNESS: This is an 84-year-old female with a past medical history of CHF who presented to the emergency department complaining of palpitations and shortness of breath that started after she had cardioversion 1 week ago. She reports shortness of breath on and off. She also reports more swelling in both lower extremities as well. She noticed orthopnea, shortness of breath to minimal exertion. She is having cough with productive clear blood-tinged sputum. She was evaluated in the emergency department, ProBNP was elevated. The x- ray also here showed congestive heart failure. So the patient is going to be admitted for further evaluation and treatment. PAST MEDICAL HISTORY: 1. Atrial fibrillation and atrial flutter on Eliquis that has been recently cardioverted to sinus rhythm one week ago. 2. Aortic insufficiency. 3. Mitral regurgitation. 4. Hyperlipidemia. 5. Diabetes mellitus type 2. 6. Chronic kidney disease stage 1. 7. Anemia of chronic disease. PAST SURGICAL HISTORY: 1. Hysterectomy. 2. Back surgery. 3. Cyst removed from behind theright ear. SOCIAL HISTORY: She denies alcohol, tobacco or illicit drug use. She lives alone but have daughters who lives close to her and very active in her care. ALLERGIES: The patient is allergic to codeine and peanuts. FAMILY HISTORY: Noncontributory. REVIEW OF SYSTEMS: Eleven systems were reviewed and all symptoms are negative other than stated in the HPI. PHYSICAL EXAMINATION: VITAL SIGNS: Temperature 98.4 degrees, heart rate 76, respiratory rate 18, blood pressure 147/76, O2 saturation 93% on room air. GENERAL: This is an 84-year-old female lying in bed in no acute distress. HEENT: Head is normocephalic, atraumatic. Mucous membranes dry. Pupils are equal, round and reactive to light and accommodation. NECK: JVD noted at 45 degrees, but no thyromegaly, no lymphadenopathy. CARDIOVASCULAR: S1, S2 heard. No murmurs, gallops or rubs. Regular rate and rhythm. RESPIRATORY: Crackles noted in both pulmonary roblero, mostly noted in both bases. The patient is not using any accessory muscles or having work of breathing. ABDOMEN: Soft, nontender to palpation. A little bit distended. Bowel sounds present. No organomegaly. EXTREMITIES: 3+ pitting edema in both lower extremities up to both knees. Peripheral pulses present but faint. No organomegaly noted. NEUROLOGIC: The patient is alert and oriented x3. Moves all 4 extremities. LABORATORY DATA: White cell count 7.82, hemoglobin 9.1, hematocrit 30.1, platelets 266,000, with creatinine of 1.2. ASSESSMENT: 1. Acute congestive heart failure. 2. Chronic kidney disease stage 1. 3. Diabetes mellitus type 2. 4. History of mitral regurgitation. PLAN: At this point the patient is going to be admitted to the hospital for CHF exacerbation. She reports taking 30 mg of furosemide. We are going to place her on Lasix 40 mg IV q.12 hours. We will monitor Ins and Outs as well as BMP. I do not think we will need to repeat an echocardiogram considering that she had one recently done 6 months ago. There is no report to sick contacts in the family. We will continue the rest of the home medications for her chronic medical conditions. For diabetes we will use sliding scale insulin. Check before meals and also at bedtime. We will continue to monitor this patient closely. cc: Albert Draper MD MTDD
--- NOTE | 2019-09-18 22:28 | EKG Report ---
Test Performed on : 09/18/2019 5:59:11 PM Test Reason : palpitations Blood Pressure : / mmHG Vent. Rate : 083 BPM Atrial Rate : 083 BPM P-R Int : 192 ms QRS Dur : 076 ms QT Int : 400 ms P-R-T Axes : 055 -15 -66 degrees QTc Int : 470 ms Normal sinus rhythm. Voltage criteria for left ventricular hypertrophy ST & T wave abnormality, consider inferior ischemia Abnormal ECG When compared with ECG of 18-SEP-2019 10:58, (Unconfirmed) Non-specific change in ST segment in Lateral leads Unconfirmed Result
[2019-09-18] MEDS: COREG PO SCH (22:46)
[2019-09-18] MEDS: CRESTOR PO SCH (22:46)
[2019-09-18] MEDS: ELIQUIS PO SCH (22:46)
[2019-09-19] MEDS: HUMALOG SUBQ SCH ×4 (06:26→21:17)
[2019-09-19 08:46] LABS: HEMATOCRIT 28.5 % (37.0-47.0); HEMOGLOBIN 8.7 g/dL (12.0-16.0); MCH 24.2 PG (27-31); MCHC 30.5 g/dL (33-37); MCV 79.2 FL (81-99); MPV 10.2 FL (7.4-10.4); RBC 3.6 XMIL (4.2-5.4); RDW 17.2 % (11.5-14.5); WBC 10.83 X1000 (4.8-10.8)
[2019-09-19 09:06] LABS: CALCIUM 8.6 mg/dL (8.8-10.2); CREATININE 1.1 mg/dL (0.5-0.9); POTASSIUM 3.7 mmol/L (3.5-5.1)
[2019-09-19 09:21] LABS: CHOLESTEROL 130 mg/dL (0-200); HDL 60 mg/dL (45-65); LDL 52 mg/dL; TRIGLYCERIDES 92 mg/dL (35-135); VLDL 18 mg/dL
[2019-09-19] MEDS: COREG PO SCH ×2 (09:43→21:15)
[2019-09-19] MEDS: PRILOSEC PO SCH (09:44)
[2019-09-19] MEDS: SYNTHROID PO SCH (09:44)
[2019-09-19] MEDS: LASIX IV SCH ×2 (09:44→21:13)
[2019-09-19] MEDS: CORDARONE PO SCH (09:44)
[2019-09-19] MEDS: SINGULAIR PO SCH (09:44)
[2019-09-19] MEDS: NORVASC PO SCH (09:44)
[2019-09-19] MEDS: ELIQUIS PO SCH ×2 (09:44→21:15)
[2019-09-19] MEDS: KLOR-CON PO SCH (09:45)
[2019-09-19] MEDS ORDERED: DUONEB (A & A) INH PRN (14:17)
[2019-09-19] MEDS: DUONEB (A & A) INH SCH ×3 (15:36→23:43)
[2019-09-19] MEDS: ZOSYN 3.375 GM in NS 50 ML IV SCH ×2 (17:40→21:09)
--- NOTE | 2019-09-19 17:46 | PROGRESS NOTE ---
DATE: 09/19/2019 SUBJECTIVE: Patient reports that she is still short of breath and that she is producing some yellowish sputum that is very thick. OBJECTIVE: Vital Signs: Temperature 99.7 degrees, heart rate 66, respiratory rate 18, blood pressure 116/59. O2 saturation 94% on 2 L nasal cannula. General: This is a chronically ill- appearing, 84-year-old female lying in bed, in no acute distress. Cardiovascular: S1, S2 heard. No murmurs, gallops, or rubs. Regular rate and rhythm. Respiratory Exam: Crackles and rhonchi all over both pulmonary roblero. Anteriorly and posteriorly. Patient is not using any accessory muscles or having work of breathing. Abdomen: Soft, nontender to palpation. Bowel sounds present. No organomegaly. Extremities: 3+ pitting edema in both lower extremities up to both knees. Similar in comparing with yesterday. Peripheral pulses present but faint. Neurological: Patient is alert and oriented x3. Moves 4 extremities. LABORATORY DATA: White cell count 10.33 hemoglobin 8.7, hematocrit 28.5. Platelets 263,000 with creatinine 1.1. Calcium 8.6. ASSESSMENT AND PLAN: 1. Acute respiratory failure secondary to congestive heart failure. Patient has been placed on Lasix 40 mg IV q.12 hours. Patient reports being complaint with her medication in this case furosemide 30 mg p.o. daily. We will check chest x-ray PA and lateral, tomorrow. 2. Possible community-acquired pneumonia. Patient started producing more thick yellowish sputum production. No rhonchi is noted on the physical examination today so at this point, we will do a CT of the chest without contrast. We will start Zosyn. 3. Diabetes mellitus type 2. We will continue with sliding scale insulin. Accu-Chek before meals also at bedtime. 4. History of mitral regurgitation. Aware. 5. Disposition. We will continue current management. We will continue to monitor this patient here in the hospital. cc: Albert Draper MD
[2019-09-19] MEDS: CRESTOR PO SCH (21:15)
[2019-09-20] MEDS: ZOSYN 3.375 GM in NS 50 ML IV SCH ×4 (02:01→21:30)
[2019-09-20] MEDS: DUONEB (A & A) INH SCH ×6 (03:11→23:20)
[2019-09-20] MEDS: HUMALOG SUBQ SCH ×4 (06:18→21:44)
[2019-09-20] MEDS ORDERED: VANCOMYCIN IV PER PHARMACY MISC SCH (06:45)
[2019-09-20 07:37] LABS: HEMATOCRIT 29.3 % (37.0-47.0); MCH 23.9 PG (27-31); MCHC 30.7 g/dL (33-37); MCV 77.9 FL (81-99); MPV 10.6 FL (7.4-10.4); RBC 3.76 XMIL (4.2-5.4); RDW 17.1 % (11.5-14.5); WBC 10.3 X1000 (4.8-10.8)
[2019-09-20] MEDS: LASIX IV SCH ×3 (07:42→21:45)
[2019-09-20] MEDS: PRILOSEC PO SCH ×2 (07:43→08:22)
[2019-09-20] MEDS: NORVASC PO SCH ×2 (07:43→08:21)
[2019-09-20] MEDS: SINGULAIR PO SCH ×2 (07:44→08:22)
[2019-09-20] MEDS: COREG PO SCH ×3 (07:44→21:43)
[2019-09-20] MEDS: CORDARONE PO SCH ×2 (07:44→08:19)
[2019-09-20] MEDS: SYNTHROID PO SCH ×2 (07:44→08:22)
[2019-09-20 07:58] LABS: CALCIUM 8.8 mg/dL (8.8-10.2); CREATININE 1.4 mg/dL (0.5-0.9); POTASSIUM 3.8 mmol/L (3.5-5.1)
[2019-09-20] MEDS: ELIQUIS PO SCH ×2 (08:20→21:44)
[2019-09-20] MEDS: KLOR-CON PO SCH (08:21)
--- NOTE | 2019-09-20 08:25 | Diag Imaging Result Doc PS360 ---
EXAM: CT THORAX W/CONTRAST 09/20/2019 HISTORY: pna TECHNIQUE: This exam was performed using automated exposure control, adjustment of mA or kV according to patient size, and/or use of iterative reconstruction technique. COMMENT: The current study is compared with the previous examination of 07/31/2019. There is a pleural effusion on the right which was also present previously. This may have diminished slightly in volume. There is a small left pleural effusion which is also slightly diminished. There is atelectasis of both lower lobes versus pneumonia. Patchy groundglass opacity is present in both upper lobes particularly the right apex which was not present previously. There are some granulomatous calcifications in the subcarina and left hilum as well as in some aorticopulmonary window nodes. There are some paratracheal nodes which are slightly more prominent on today's study than on the previous exam. The regional skeleton is stable in appearance. IMPRESSION: Improved pleural effusions. Worsened pneumonia versus pulmonary edema in the upper lobes, particularly the right. Bilateral lower lobe atelectasis versus pneumonia. Electronically signed by Jonathan Vazquez 09/20/2019 8:23 AM
[2019-09-20] MEDS ORDERED: VANCOMYCIN 1,600 MG in NS 250 ML IV ONE (09:00)
[2019-09-20 09:26] LABS: ALLEN TEST NO; BE -0.8 mmoll (-3.0-3.0); BLOOD TYPE ARTERIAL; HCO3-(ACT) 24.3 mmoll (20.0-26.0); O2(CT) 11.3 mL/dL (15.0-23.0); O2HB 93.8 % (95.0-99.0); PCO2(98.6) 29 mmHg (35-45); PO2(98.6) 64 mmHg (60-100); SAMPLE BLOOD; SAO2 95.8 % (95.0-100.0); THB 8.5 g/dL (11.5-17.4); pH(98.6) 7.49 (7.35-7.45)
[2019-09-20 09:27] LABS: MODALITY NRB
[2019-09-20] MEDS: MUCOMYST 20% INH SCH ×4 (09:27→19:27)
--- NOTE | 2019-09-20 11:07 | PROGRESS NOTE ---
DATE: 09/20/2019 SUBJECTIVE: The patient definitely is more short of breath in comparing with yesterday. According to family who is at bedside, she is struggling to breathe. She continues to produce more yellowish sputum that is very thick. Not feeling overall good today. OBJECTIVE: Vital Signs: Temperature 99.4 degrees, heart rate 80, respiratory rate 20, blood pressure 134/64, O2 saturation 94% on 3 L nasal cannula. General Examination: This is a chronically ill-appearing, 84-year-old female, lying in bed in no acute distress. Cardiovascular exam: S1, S2 heard. No murmurs, gallops, or rubs. Respiratory exam: Crackles and rhonchi and some wheezing noted all over both pulmonary roblero, definitely much worse today. The patient is using some accessory muscles. Abdomen: Soft, nontender to palpation. Bowel sounds present. No organomegaly. Extremities: There is 2+ pitting edema noted in both lower extremities up to both knees. A little bit better in comparing with yesterday. Peripheral pulses present, but faint. Neurological exam: Patient is alert and oriented x3. Moves 4 extremities. LABORATORY DATA: Labs pending at the time of my dictation. ASSESSMENT AND PLAN: 1. Acute respiratory failure secondary to congestive heart failure. Patient has been placed on Lasix 40 mg intravenous every 12 hours since admission, but she continues to complain off shortness of breath. At this point from that standpoint, we will continue with same management. 2. Possible community-acquired pneumonia. The patient is definitely complaining of shortness of breath. She is producing more thick yellow sputum production. The patient has been started on Zosyn yesterday. We are going to add vancomycin to her current treatment. Awaiting for the CT of the chest with contrast. We will send this patient to intensive care unit for better monitoring considering that she is struggling breathing. 3. Diabetes mellitus type 2. We will continue with sliding scale insulin. Accu-Chek before meals and also at bedtime. 4. History of mitral regurgitation. Aware. 5. Disposition: At this point, we are going to transfer this patient to the intensive care unit. cc: Albert Draper MD
--- NOTE | 2019-09-20 20:42 | PULMONOLOGY CONSULTATION ---
DATE: 09/20/2019 CONSULTING PHYSICIAN: Dr. Albert Fernando. REASON FOR CONSULT: Acute respiratory failure. HISTORY OF PRESENT ILLNESS: This is an 84-year-old female with a prior history of atrial fibrillation, congestive heart failure, who presented to the emergency room complaining of palpitations and shortness of breath. She is status post direct current cardioversion x1 week. She stated that the shortness of breath started within a day or 2 after cardioversion, she also began to have more lower extremity edema and she felt abdominal fullness. Over the 24 hours prior to coming to the emergency room she developed shortness of breath with minimal exertion as well as orthopnea. She did have a productive cough with clear blood-tinged sputum. She states that during the night last night and up into the morning she developed thick yellow sputum. Her initial proBNP was 6466 with chest x-ray that revealed congestive heart failure, she was given Lasix 60 mg IV in the emergency room followed by Lasix 40 IV b.i.d. She has not kept up with I and O having a reported output accumulative of 200 mL since admission. She did state that when she had to go she had to go too fast, she was unable to measure it. During the night she developed increasing respiratory distress with LIANG@ as low as 78% She stated "I was breathing so fast that I thought I couldn't keep on." Respirations are documented from 24 to 40 since [address] of the chest revealed improved bilateral pleural effusions, worsening pneumonia versus pulmonary edema in the upper lobes particularly on the right with bilateral lower lobe atelectasis versus pneumonia. She has been transferred to ICU, placed on BiPAP. She states that she is 80% better now. She is sitting comfortable with respirations that are 18 to 20. PAST MEDICAL HISTORY: 1. Atrial fibrillation and atrial flutter status post direct current cardioversion to sinus rhythm status post 1 week on Eliquis. 2. Aortic insufficiency. 3. Hyperlipidemia. 4. Diabetes mellitus type 2. 5. Chronic kidney disease stage 1. 6. Anemia of chronic disease. PAST SURGICAL HISTORY: Hysterectomy, back surgery and cyst removed from her right ear. SOCIAL HISTORY: She denies alcohol, tobacco, or illicit drug use. She lives alone but has a daughter that is very close and active in her care. ALLERGIES: Codeine and peanuts. REVIEW OF SYSTEMS: Discussed with the patient with pertinent positives stated in the HPI. She denied any syncope or dizziness, any nausea, vomiting, diarrhea, constipation, black or bloody vomitus or stools, hematuria, dysuria, frequency, urgency. PHYSICAL EXAM: This is an 84-year-old female who is sitting up in the bed in ICU in no distress.Vital Signs: Blood pressure is 138/80 with a heart rate of 80, respirations are 18 to 20, temperature is 99.4 with O2 saturations that are 100% on BiPAP at 100%. HEENT: Pupils equal, round, react to light. EOMs are intact. Sclerae are anicteric. Head is normocephalic, atraumatic. Mucous membranes are dry. Neck: Supple with trachea midline. Cardiovascular: Regular rate and rhythm. S1 and S2 are appreciated. No murmur. She has bilateral lower extremity pedal edema with peripheral pulses palpable x4 extremities. Calves are nontender bilateral. Pulmonary: Breath sounds with wheezes scattered throughout and bibasilar rales. Chest rises and falls symmetric respiration. Chest wall is nontender to palpation. Gastrointestinal: Abdomen soft, nontender, nondistended. Bowel sounds in all 4 quadrants. Neurologic: She is alert, oriented x3. Skin: Warm and dry. LABS: WBC is 10 with hemoglobin 9, hematocrit 29.3, platelets 268,000. Sodium is 141, potassium 3.8, BUN 23, creatinine 1.4 with glucose of 133[address] CT of the chest revealed improved pleural effusions, worsened pneumonia versus pulmonary edema in upper lobes particularly the right, bilateral lower lobe atelectasis versus pneumonia. ASSESSMENT AND PLAN: 1. Acute hypoxemic respiratory failure. continue BiPAP and trend 2. Congestive heart failure. Lasix 40 mg IV q.12 hours, strict I and O. 3. Community-acquired pneumonia. Will order a sputum culture. Continue with DuoNeb q.4 hours with q.2 hours p.r.n., BiPAP, antibiotic coverage of vancomycin by pharmacy and Zosyn and further antibiotics will be culture driven. 4. Diabetes mellitus type 2. Continue sliding scale insulin with pattern blood glucose. 5. History of mitral regurgitation, aware. 6. History of atrial fibrillation and atrial flutter 1 week status post direct current cardioversion currently in sinus rhythm on chronic anticoagulation. continue telemetry and Eliquis as per primary team. 7. Hypothyroid. Continue levothyroxine as per primary team. Order sputum specimen, flu swab, repeat a chest x-ray in the morning. Plan was discussed with Dr. Gallegos. Dictated by GIRISH Hernandez for Neil Gallegos MD The clinical exam was performed by GIRISH Zhang. I have reviewed and agree with the assessment and plan. I reviewed films and case on line. Neil Gallegos M.D. cc: GIRISH Hernandez MD [facility]
[2019-09-20] MEDS: CRESTOR PO SCH (21:44)
[2019-09-21] MEDS: ZOSYN 3.375 GM in NS 50 ML IV SCH ×4 (02:38→20:54)
[2019-09-21] MEDS: DUONEB (A & A) INH SCH ×6 (03:35→22:56)
--- NOTE | 2019-09-21 07:26 | Diag Imaging Result Doc PS360 ---
EXAM: CHEST-PORTABLE 09/21/2019 HISTORY: hypoxemic resp failure, CHF, pneumonia TECHNIQUE: AP portable at 0551 COMMENT: Compared to 09/18/2019 there has been marked worsening with increasing alveolar opacity in both lower lobes and particularly in the right upper lobe. There continues to be bilateral pleural effusions. IMPRESSION: Worsening pulmonary edema plus minus pneumonia. Electronically signed by Jonathan Vazquez 09/21/2019 7:24 AM
[2019-09-21 07:27] LABS: CALCIUM 7.9 mg/dL (8.8-10.2); CREATININE 1.4 mg/dL (0.5-0.9); POTASSIUM 3.3 mmol/L (3.5-5.1)
[2019-09-21] MEDS: MUCOMYST 20% INH SCH ×4 (07:27→19:33)
[2019-09-21] MEDS: HUMALOG SUBQ SCH ×4 (07:30→20:54)
[2019-09-21 07:35] LABS: HEMATOCRIT 24.8 % (37.0-47.0); HEMOGLOBIN 7.6 g/dL (12.0-16.0); MCH 24.2 PG (27-31); MCHC 30.6 g/dL (33-37); MPV 10.6 FL (7.4-10.4); RBC 3.14 XMIL (4.2-5.4); WBC 9.74 X1000 (4.8-10.8)
[2019-09-21] MEDS: SYNTHROID PO SCH (08:05)
[2019-09-21] MEDS: NORVASC PO SCH (08:05)
[2019-09-21] MEDS: PRILOSEC PO SCH (08:05)
[2019-09-21] MEDS: COREG PO SCH ×2 (08:06→20:54)
[2019-09-21] MEDS: SINGULAIR PO SCH (08:06)
[2019-09-21] MEDS: ELIQUIS PO SCH ×2 (08:06→20:54)
[2019-09-21] MEDS: CORDARONE PO SCH (08:06)
[2019-09-21] MEDS: LASIX IV SCH ×2 (08:07→20:54)
[2019-09-21] MEDS: KLOR-CON PO SCH (08:17)
--- NOTE | 2019-09-21 12:25 | PROGRESS NOTE ---
DATE: 09/21/2019 SUBJECTIVE: Patient reports breathing better. According to nursing staff, is still tachypneic. She has been using BiPAP all night long. As we mentioned before, clinically she reports breathing better today. OBJECTIVE: Vital Signs: Temperature 98.9 degrees, heart rate 75, respiratory rate 18, blood pressure 149/68, O2 saturation 99% percent on Ventimask. General Examination: This is a chronically ill-appearing, 84-year-old, -[place] female lying in bed, in no acute distress. Cardiovascular: S1, S2 heard. Tachycardic but no murmurs, gallops, or rubs noted. Respiratory: Crackles and rhonchi, and some wheezing noted in both pulmonary roblero, same in comparing with yesterday. Patient is not using any accessory muscles or having work of breathing. Abdomen: Soft, nontender to palpation. Bowel sounds present. No organomegaly. Extremities: There is 2+ pitting edema noted in both lower extremities up to both knees. Peripheral pulses present but faint. Neurological: Patient alert and oriented x3. Moves 4 extremities. LABORATORY DATA: Pending at the time of my dictation. ASSESSMENT AND PLAN: 1. Acute respiratory failure secondary to congestive heart failure. We will continue with Lasix 40 mg IV every 12 hours. Clinically she reports less shortness of breath. We will continue checking BMP to check potassium and replenish if needed. 2. Community-acquired pneumonia. The patient is on Zosyn and vancomycin. We will continue with breathing treatments with DuoNeb every 4 hours as scheduled. 3. Diabetes mellitus type 2. We will continue with sliding scale insulin and Accu-Chek before meals and also at bedtime. 4. Disposition. I think patient is better today. We will transfer her to the PVC unit today. cc: Albert Draper MD
--- NOTE | 2019-09-21 15:57 | PULMONOLOGY PROGRESS NOTE ---
DATE: 09/21/2019 SUBJECTIVE: Ms. Bruce is sitting up in the bed talking with family members. She has BiPAP in use. She states that she feels 90% better than yesterday. OBJECTIVE: Vital Signs: Blood pressure is 132/64 with a heart rate of 75, respirations are 20 to 22, temperature is 99.4 degrees with O2 saturations that are 98 to 100% on BiPAP. General: This is an 84-year-old female who is sitting up in the bed BiPAP in use in no distress. HEENT: Head is normocephalic, atraumatic. Mucous membranes are moist. Neck: Supple with trachea midline. Cardiovascular: Regular rate and rhythm. S1 and S2 appreciated. No murmurs, rubs, or gallops. Pulmonary: She does have some crackles scattered throughout with a slight expiratory wheeze, rhonchi that partially clear to cough. Chest rises and falls symmetric with respiration. Gastrointestinal: Abdomen soft, nontender, nondistended, bowel sounds in all 4 quadrants. Extremities: She has 1 to 2+ pitting edema in bilateral lower extremities up to the knees with peripheral pulses palpable x4 extremities. Calves are nontender. Neurologic: She is alert, oriented x3. LABS: WBC is 9.7 with hemoglobin 7.6, hematocrit 24.8, platelets of 229,000. Sodium 142, potassium 3.3, BUN 23, creatinine 1.4 with a glucose of 105. Chest x-ray revealed worsening pulmonary edema plus or minus pneumonia. ASSESSMENT: 1. Acute hypoxemic respiratory failure. Will continue BiPAP at night and p.r.n. with supplemental oxygen during the day. 2. History of congestive heart failure. Continue diuresis as ordered 3. Community-acquired pneumonia. Sputum culture revealed no growth. Continue antibiotics 4. Continue pattern blood glucose with sliding scale insulin as per primary team, diabetes mellitus type 2. 5. History of mitral regurgitation aware. 6. History of atrial fibrillation and atrial flutter status post 1 week direct current cardioversion, she is currently in sinus rhythm on chronic anticoagulation. Continue Eliquis and telemetry. 7. Hypothyroid, levothyroxine as per primary team. Plan was discussed with Dr. Gallegos. Dictated by GIRISH Hernandez for Neil Gallegos MD cc: GIRISH Hernandezle, MD [facility]
[2019-09-21] MEDS: CRESTOR PO SCH (20:54)
[2019-09-22] MEDS: DUONEB (A & A) INH SCH ×6 (03:10→23:05)
[2019-09-22] MEDS: ZOSYN 3.375 GM in NS 50 ML IV SCH ×4 (03:17→21:18)
[2019-09-22] MEDS: HUMALOG SUBQ SCH ×4 (06:40→21:18)
--- NOTE | 2019-09-22 07:15 | Diag Imaging Result Doc PS360 ---
EXAM: CHEST-PORTABLE 09/22/2019 HISTORY: abnormal exam TECHNIQUE: AP portable at 0550 COMMENT: There continues to be alveolar opacity of much of the right upper and lower lobes. There are small bilateral pleural effusions. There is atelectasis versus pneumonia in the left lower lobe. There has been slight worsening in the right upper lobe compared to 09/21/2019. These findings are considerably worse than on 09/18/2019. IMPRESSION: Right upper and lower lobe pneumonia. Electronically signed by Jonathan Vazquez 09/22/2019 7:13 AM
[2019-09-22 07:31] LABS: BASO# 0.02 X1000 (0.0-0.2); BASO% 0.2 % (0.0-0.8); EOS# 0.33 X1000 (0.0-0.7); EOS% 3.5 % (0.0-10.0); HEMATOCRIT 24.6 % (37.0-47.0); HEMOGLOBIN 7.4 g/dL (12.0-16.0); IMM GRAN# 0.03 X1000 (0.0-0.04); IMM GRAN% 0.3 % (0.0-0.5); LYMPH# 1.05 X1000 (1.2-3.4); LYMPH% 11.3 % (20.5-51.1); MCH 23.3 PG (27-31); MCHC 30.1 g/dL (33-37); MCV 77.4 FL (81-99); MONO# 0.92 X1000 (0.11-0.59); MONO% 9.9 % (1.7-9.3); MPV 10.7 FL (7.4-10.4); NEUT# 6.95 X1000 (1.4-6.5); NEUT% 74.8 % (42.2-75.2); PLT 260 X1000 (130-400); RBC 3.18 XMIL (4.2-5.4); RDW 16.4 % (11.5-14.5)
[2019-09-22 07:50] LABS: CREATININE 1.5 mg/dL (0.5-0.9); POTASSIUM 3.2 mmol/L (3.5-5.1)
[2019-09-22] MEDS ORDERED: KLOR-CON PO ONE (08:36)
[2019-09-22] MEDS: MUCOMYST 20% INH SCH ×2 (08:45→19:53)
[2019-09-22] MEDS: NORVASC PO SCH (08:56)
[2019-09-22] MEDS: COREG PO SCH ×2 (08:56→21:17)
[2019-09-22] MEDS: CORDARONE PO SCH (08:56)
[2019-09-22] MEDS: SYNTHROID PO SCH (08:56)
[2019-09-22] MEDS: PRILOSEC PO SCH (08:56)
[2019-09-22] MEDS: SINGULAIR PO SCH (08:56)
[2019-09-22] MEDS: ELIQUIS PO SCH ×2 (08:56→21:17)
[2019-09-22] MEDS: KLOR-CON PO SCH (08:57)
[2019-09-22] MEDS: LASIX IV SCH ×2 (08:57→21:17)
[2019-09-22] MEDS ORDERED: VANCOMYCIN 1,300 MG in NS 250 ML IV SCH (09:00)
--- NOTE | 2019-09-22 09:05 | PROGRESS NOTE ---
DATE: 09/22/2019 SUBJECTIVE: The patient reports breathing better. Upon my examination, she looks less short of breath and less tachypneic. No other issues noted as per nursing staff overnight. OBJECTIVE: Vital Signs: Temperature 98.1 degrees, heart rate 66, respiratory rate 24, blood pressure 112/61, O2 saturation 100% on nonrebreather mask. General: This is a chronically ill- appearing and frail, 84-year-old, female, lying in bed in no acute distress. Cardiovascular: S1, S2 heard. Tachycardic, but no murmurs, gallops, or rubs noted. Respiratory: Crackles and rhonchi and some wheezing noted in both pulmonary roblero, same in comparing with yesterday. The patient is not using any accessory muscles or having work of breathing. Abdomen: Soft, nontender to palpation. Bowel sounds present. No organomegaly. Extremities: There is 2+ pitting edema noted in both lower extremities, definitely better in comparing with admission. Peripheral pulses present, but faint. Neurological: The patient is alert and oriented x3. Moves all 4 extremities. LABORATORY DATA: White cell count 9.3, hemoglobin 7.4, hematocrit 24.6, platelets 260,000. Creatinine 1.5, potassium 3.2. ASSESSMENT AND PLAN: 1. Acute respiratory failure secondary to congestive heart failure. The patient continues to receive Lasix 40 mg intravenously every 12 hours. Potassium is low, so we are going to replace. She reports less shortness of breath. Will continue to check BMP daily. 2. Community-acquired pneumonia. The patient is on Zosyn and vancomycin. She continues to receive Duoneb every 4 hours. The patient is still tachypneic, although better in comparing with a couple days. Will continue to monitor. 3. Diabetes mellitus type 2. Will continue with sliding scale insulin and Accu- Chek before meals and also at bedtime. 4. Disposition. Will continue to monitor this patient here in the [facility]. The patient is going to be here for a few more days definitely. cc: Albert Draper MD [facility]
--- NOTE | 2019-09-22 17:34 | PULMONOLOGY PROGRESS NOTE ---
DATE: 09/22/2019 SUBJECTIVE: The patient states that she is breathing better. She has no complaints. PHYSICAL EXAMINATION: Vital Signs: Blood pressure is 128/60 with a heart rate of 70, respirations are 20, temperature is 99.4 degrees, O2 saturations are 95% to 96% on 4 L nasal cannula. HEENT: Head is normocephalic, atraumatic. Mucous membranes are moist. Pupils are equal, round, react to light. Neck: Neck is supple with trachea midline. Cardiovascular: Regular rate and rhythm. S1 and S2 are appreciated. No murmurs, rubs, or gallops. Pulmonary: Wheezes noted bilateral with rhonchi that do not clear to cough. There is no increased work of breathing noted. Gastrointestinal: Abdomen is soft, nontender, nondistended with bowel sounds in all 4 quadrants. Extremities: There is 1 to 2+ pitting edema bilateral up to the knees. Calves are nontender. Neurologic: She is alert and oriented. LABS: WBC is 9.3 with hemoglobin 7.4, hematocrit 24.6, and platelets of 260,000. Sodium 141, potassium 3.2, BUN 28, creatinine 1.5 with a glucose of 154. Chest x-ray revealed right upper and lower lobe pneumonia. Findings are considerably worse than on 09/08/2019 chest x-ray, per Radiology read. ASSESSMENT AND PLAN: 1. Acute hypoxemic respiratory failure. continue to cycle BiPAP and supplemental oxygen through the day. 2. Community-acquired pneumonia, right upper and lower lobe that has increased per radiology read of chest x-ray. add incentive spirometer, up in the chair 3 times a day with meals and continue antibiotics. 3. History of congestive heart failure. continue IV diuresis with strict intake and output. 4. Diabetes mellitus. Pattern blood glucose with sliding scale insulin. 5. History of atrial fibrillation and atrial flutter status post 1 week DC cardioversion, currently in sinus rhythm on chronic anticoagulation. Continue Eliquis and telemetry. 6. Hypothyroid. Continue levothyroxine as per primary team. Plan was discussed with Dr. Gallegos. Dictated by GIRISH Hernandez for Neil Gallegos MD cc: GIRISH Hernandez MD [facility]
[2019-09-22] MEDS: CRESTOR PO SCH (21:17)
[2019-09-23] MEDS: DUONEB (A & A) INH SCH ×6 (03:19→23:39)
[2019-09-23] MEDS: ZOSYN 3.375 GM in NS 50 ML IV SCH ×4 (05:23→20:25)
--- NOTE | 2019-09-23 06:32 | Diag Imaging Result Doc PS360 ---
CHEST-PORTABLE - 09/23/2019 INDICATION: abnormal exam COMPARISON: 09/22/2019 FINDINGS: Stable cardiomegaly and pulmonary vascular congestion. There has been improvement in the extensive dense heterogeneous bilateral infiltrates. Stable trace pleural effusions. IMPRESSION: Slight improvement in the dense bilateral infiltrates. Electronically signed by Antony Casas 09/23/2019 6:30 AM
[2019-09-23] MEDS: HUMALOG SUBQ SCH ×5 (07:02→20:59)
[2019-09-23 07:20] LABS: CALCIUM 8.4 mg/dL (8.8-10.2); CREATININE 1.6 mg/dL (0.5-0.9); POTASSIUM 3.7 mmol/L (3.5-5.1)
[2019-09-23 07:40] LABS: BASO# 0.03 X1000 (0.0-0.2); BASO% 0.4 % (0.0-0.8); EOS# 0.88 X1000 (0.0-0.7); EOS% 10.5 % (0.0-10.0); HEMATOCRIT 24.1 % (37.0-47.0); HEMOGLOBIN 7.4 g/dL (12.0-16.0); IMM GRAN# 0.02 X1000 (0.0-0.04); IMM GRAN% 0.2 % (0.0-0.5); LYMPH# 1.35 X1000 (1.2-3.4); LYMPH% 16.1 % (20.5-51.1); MCH 23.6 PG (27-31); MCHC 30.7 g/dL (33-37); MCV 76.8 FL (81-99); MONO% 8.3 % (1.7-9.3); MPV 10.6 FL (7.4-10.4); NEUT# 5.42 X1000 (1.4-6.5); NEUT% 64.5 % (42.2-75.2); PLT 265 X1000 (130-400); RBC 3.14 XMIL (4.2-5.4); RDW 16.6 % (11.5-14.5)
[2019-09-23] MEDS: MUCOMYST 20% INH SCH ×2 (08:38→19:41)
[2019-09-23] MEDS: CORDARONE PO SCH (08:46)
[2019-09-23] MEDS: SYNTHROID PO SCH (08:46)
[2019-09-23] MEDS: NORVASC PO SCH (08:46)
[2019-09-23] MEDS: SINGULAIR PO SCH (08:46)
[2019-09-23] MEDS: COREG PO SCH ×2 (08:46→20:23)
[2019-09-23] MEDS: ELIQUIS PO SCH ×2 (08:46→20:24)
[2019-09-23] MEDS: TUSSIONEX LIQUID PO PRN ×2 (08:47→20:54)
[2019-09-23] MEDS: KLOR-CON PO SCH (08:47)
[2019-09-23] MEDS: LASIX IV SCH ×2 (08:47→20:25)
[2019-09-23] MEDS: PRILOSEC PO SCH (08:47)
--- NOTE | 2019-09-23 08:57 | PROGRESS NOTE ---
DATE: 09/23/2019 SUBJECTIVE: The patient reports feeling short of breath this morning. Upon my examination, she looks definitely tachypneic. No other issues noted as per nursing staff overnight. OBJECTIVE: Vital Signs: Temperature 97.7 degrees, heart rate 71, respiratory rate 16, blood pressure 144/76, O2 saturation 94% on 3 L nasal cannula. General: This is a chronically ill- looking, 84-year-old, female, lying in bed in no acute distress. Cardiovascular: S1, S2 heard. No murmurs, gallops, or rubs. Regular rate and rhythm. Respiratory: Crackles and rhonchi and wheezing all over both pulmonary bases, basically the same in comparing with yesterday. The patient is not using any accessory muscles or having work of breathing. Abdomen: Soft, nontender to palpation. Bowel sounds present. No organomegaly. Extremities: There is 1+ pitting edema noted in both lower extremities, definitely much better in comparing with admission. Peripheral pulses present, but faint. Neurological: The patient is alert and oriented x3. Moves all 4 extremities. LABORATORY DATA: Reviewed. White cell count is 8.4, hemoglobin 7.4, hematocrit 24.1, platelets 265,000. BMP reveals creatinine 1.6. No more potassium. ASSESSMENT AND PLAN: 1. Acute respiratory failure secondary to congestive heart failure. Will continue with Lasix 40 mg intravenously every 12 hours. Considering that her renal function is getting worse, will hold this medication for the next 24 hours, and will see how she does. Potassium is back to normal. She reports feeling short of breath. The x-ray from today showed slight improvement in the dense bilateral infiltrates. At this point, will continue with the same management. 2. Community-acquired pneumonia. The patient is on Zosyn and vancomycin. Will continue with DuoNebs every 4 hours as scheduled. She continues to be tachypneic. Pulmonary is following this patient. Will follow recommendations. 3. Diabetes mellitus type 2. Will continue with sliding scale insulin and Accu-Chek before meals and also at bedtime. 4. Disposition. Will continue to monitor this patient in [facility]. She is still short of breath. She is still coughing. Will continue to monitor. cc: Albert Draper MD
[2019-09-23] MEDS ORDERED: PREPARATION H OINT TOP PRN (16:20)
[2019-09-23] MEDS: CRESTOR PO SCH (20:24)
[2019-09-24] MEDS: ZOSYN 3.375 GM in NS 50 ML IV SCH ×4 (03:48→20:33)
[2019-09-24] MEDS: DUONEB (A & A) INH SCH ×6 (04:00→23:46)
[2019-09-24 05:56] LABS: ALLEN TEST YES; BE -0.9 mmoll (-3.0-3.0); BLOOD TYPE ARTERIAL; HCO3-(ACT) 24.3 mmoll (20.0-26.0); METHB 0.1 % (0.0-1.5); O2HB 96.7 % (95.0-99.0); PCO2(98.6) 34 mmHg (35-45); PO2(98.6) 116 mmHg (60-100); SAMPLE BLOOD; SAO2 98.1 % (95.0-100.0); THB 7.2 g/dL (11.5-17.4); pH(98.6) 7.44 (7.35-7.45)
[2019-09-24 05:57] LABS: MODALITY CANNULA
[2019-09-24] MEDS: TEFLARO 400 MG in NS 250 ML IV SCH ×2 (06:25→17:27)
[2019-09-24] MEDS: HUMALOG SUBQ SCH ×4 (06:26→20:33)
[2019-09-24 06:29] LABS: BASO# 0.03 X1000 (0.0-0.2); BASO% 0.4 % (0.0-0.8); HEMATOCRIT 23.4 % (37.0-47.0); LYMPH# 1.47 X1000 (1.2-3.4); LYMPH% 20.9 % (20.5-51.1); MCH 23.3 PG (27-31); MCHC 29.9 g/dL (33-37); MCV 77.7 FL (81-99); MONO# 0.65 X1000 (0.11-0.59); MONO% 9.2 % (1.7-9.3); MPV 10.6 FL (7.4-10.4); NEUT% 52.5 % (42.2-75.2); PLT 286 X1000 (130-400); RBC 3.01 XMIL (4.2-5.4); RDW 16.7 % (11.5-14.5); WBC 7.05 X1000 (4.8-10.8)
[2019-09-24 06:47] LABS: CALCIUM 7.9 mg/dL (8.8-10.2); CREATININE 1.6 mg/dL (0.5-0.9); POTASSIUM 3.8 mmol/L (3.5-5.1)
--- NOTE | 2019-09-24 06:53 | PROGRESS NOTE ---
DATE: 09/24/2019 SUBJECTIVE: The patient reports less shortness of breath this morning. She is using a CPAP machine. Definitely looks less tachypneic today. OBJECTIVE: Vital Signs: Temperature 98.9 degrees, heart rate 64, respiratory rate 22, blood pressure 118/56, O2 saturation 99% on CPAP mask and on 2 L nasal cannula. General Examination: This is a chronically ill-looking and frail, 84-year-old, -[place] female lying in bed, in no acute distress. Cardiovascular Examination: S1 and S2 heard. No murmurs, gallops, or rubs. Regular rate and rhythm. Respiratory Examination: Rhonchi and wheezing noted in both pulmonary roblero, definitely better in comparing with yesterday. Patient is not using any accessory muscles or having work of breathing. Abdomen: Soft, nontender to palpation. Bowel sounds present. No organomegaly. Extremities: There is 1+ pedal edema in both lower extremities, definitely much better in comparing with admission. Peripheral pulses present but faint. Neurological Examination: The patient is alert, oriented x3. Moves 4 extremities. Laboratory Data: Pending at the time of my dictation. ABG is going to be checked today. ASSESSMENT AND PLAN: 1. Acute respiratory failure secondary to congestive heart failure. Considering her worsening renal failure, we will hold Lasix for today. We do not have the results of the BMP this morning. We will replenish electrolytes if needed. X-ray shows slight improvement in the dense bilateral infiltrates from yesterday. At this point, we will continue with the same management. 2. Community-acquired pneumonia. The patient has been on Zosyn and vancomycin. Considering her worsening renal failure, I prefer to stop vancomycin and start Teflaro renally-dosed, in this case 400 mg intravenously every 12 hours. We will continue also with DuoNeb every 4 hours as scheduled. She is definitely less tachypneic. We will continue to monitor this patient in the P[facility]. 3. Diabetes mellitus type 2. We will continue with sliding scale insulin. Accu-Chek before meals and also at bedtime. 4. Disposition. We will continue to monitor this patient in the [facility]. cc: Albert Draper MD
[2019-09-24] MEDS: MUCOMYST 20% INH SCH ×2 (07:51→20:06)
[2019-09-24] MEDS: PRILOSEC PO SCH (08:04)
[2019-09-24] MEDS: SYNTHROID PO SCH (08:04)
[2019-09-24] MEDS: CORDARONE PO SCH (08:05)
[2019-09-24] MEDS: ELIQUIS PO SCH ×2 (08:05→20:33)
[2019-09-24] MEDS: NORVASC PO SCH (08:05)
[2019-09-24] MEDS: SINGULAIR PO SCH (08:05)
[2019-09-24] MEDS: KLOR-CON PO SCH (08:05)
[2019-09-24] MEDS: COREG PO SCH ×2 (08:05→20:33)
--- NOTE | 2019-09-24 12:47 | PULMONOLOGY PROGRESS NOTE ---
DATE: 09/23/2019 SUBJECTIVE: The patient is awake, alert, and conversant. She reports she is feeling better. Her appetite is fluctuating. OBJECTIVE: Vital Signs: The patient has been afebrile for the last 24 hours. Blood pressure 124/58, heart rate 73, respiratory rate 20, oxygen saturation 93%. HEENT: Pupils are equal and reactive. Oropharynx appears clear. Neck: Supple. Chest: Reveals crackles in both lung bases. Cardiac: S1-S2 with regular rhythm. Abdomen: Is soft. Extremities: Without edema. LABORATORIES: White blood count 8.40, hemoglobin 7.4, platelet count 265,000. Chest x-ray reveals slight decrease in right-sided infiltrates. IMPRESSION: An 84-year-old with 1. Community-acquired pneumonia. 2. Heart failure. 3. Hypoxemic respiratory failure. 4. Diabetes mellitus. DISCUSSION: 84-year-old with problems outlined above. Community-acquired pneumonia is suspected. If she does not improve as predicted, she will need to discontinue her amiodarone. PLAN: 1. Continue current antibiotic and treatment regimen as long as patient continues to improve. 2. Continue oxygen. 3. Discontinue amiodarone if she does not continue to improve as predicted. cc: Neil Gallegos MD
[2019-09-24] MEDS: CRESTOR PO SCH (20:33)
--- NOTE | 2019-09-24 22:30 | PULMONOLOGY PROGRESS NOTE ---
DATE: 09/24/2019 SUBJECTIVE: The patient is awake and alert. She feels she is slightly better than on admission, but not markedly so. She denies cough or sputum production. OBJECTIVE: Vital Signs: The patient has been afebrile for the last 24 hours. Blood pressure 127/67, heart rate 61, respiratory rate 19, oxygen saturation 98%. HEENT: Pupils are equal and reactive. Oropharynx appears clear. Neck: Is supple. Chest: Reveals crackles bilaterally. Cardiac exam: S1-S2. Abdomen: Is soft. Extremities: Without edema. LABORATORY DATA: Sodium 140, potassium 3.8, chloride 107, bicarb 21, BUN 30, creatinine 1.6. White blood count 7.05, hemoglobin 7.0, platelet count 286,000. IMPRESSION: An 84-year-old with 1. Community-acquired pneumonia. 2. Hypoxemic respiratory failure. 3. History of heart failure. 4. Diabetes mellitus. PLAN: 1. Continue current antibiotic regimen. 2. Continue oxygen. 3. Follow up chest x-ray tomorrow. If her radiograph does not continue to improve as expected for treatment of a community-acquired pneumonia, her amiodarone will need to be discontinued. cc: Neil Gallegos MD
[2019-09-25] MEDS: DUONEB (A & A) INH SCH ×6 (03:11→23:38)
[2019-09-25] MEDS: ZOSYN 3.375 GM in NS 50 ML IV SCH ×4 (03:48→20:10)
[2019-09-25 04:42] LABS: ALLEN TEST YES; BE -1.8 mmoll (-3.0-3.0); BLOOD TYPE ARTERIAL; HCO3-(ACT) 23.5 mmoll (20.0-26.0); METHB 0.3 % (0.0-1.5); O2(CT) 15.6 mL/dL (15.0-23.0); O2HB 94.3 % (95.0-99.0); PCO2(98.6) 34 mmHg (35-45); PO2(98.6) 77 mmHg (60-100); SAMPLE BLOOD; SAO2 95.5 % (95.0-100.0); THB 11.7 g/dL (11.5-17.4); pH(98.6) 7.42 (7.35-7.45)
[2019-09-25 04:48] LABS: MODALITY CANNULA
[2019-09-25] MEDS: HUMALOG SUBQ SCH ×4 (06:46→22:47)
--- NOTE | 2019-09-25 07:49 | PROGRESS NOTE ---
DATE: 09/25/2019 SUBJECTIVE: The patient continues to be short of breath. Patient upon my examination, he is using a CPAP machine. OBJECTIVE: Vital Signs: Temperature 98.0 degrees, heart rate 68, respiratory rate 22, blood pressure 151/65, O2 saturation 95% on CPAP machine. General Examination: This is a chronically ill-looking, frail, 84-year-old female lying in bed, mildly tachypneic in no acute distress. Cardiovascular: S1, S2 heard. No murmurs, gallops, or rubs. Regular rate and rhythm. Respiratory Exam: Rhonchi and wheezing noted in both pulmonary roblero. Remains the same in comparing with yesterday. Patient is not using any accessory muscles or having work of breathing. Abdomen: Soft, nontender to palpation. Bowel sounds present. No organomegaly. Extremities: 1+ pitting edema in both lower extremities. Peripheral pulses present in both legs. Neurological: Patient is alert and oriented x3. Moves 4 extremities. LABORATORY DATA: ABG shows pH 7.42 with pCO2 34 and PO2 77. That was on nasal cannula. ASSESSMENT AND PLAN: 1. Acute respiratory failure secondary to congestive heart failure. We have held Lasix yesterday because of worsening renal function. The creatinine from yesterday was pretty much normal to the day before. We will continue to monitor BMP. 2. Community-acquired pneumonia. Patient on Zosyn and vancomycin. Considering that she is clinically not improving, I have seen notes from Dr. Gallegos that she may need to stop amiodarone if there is no improvement in the x-ray from today. We will see what that chest x- ray shows. In the meantime, we will continue with Teflaro renally dosed an Zosyn and DuoNeb every 4 hours as scheduled. 3. Type 2. We will continue with sliding scale insulin. Accu-Chek before meals and also at bedtime. 4. Disposition. We will continue to monitor this patient closely in the [facility]. cc: Albert Draper MD
--- NOTE | 2019-09-25 08:33 | Diag Imaging Result Doc PS360 ---
CHEST-2 VIEWS - 09/25/2019 INDICATION: abnormal exam COMPARISON: 09/23/2019 FINDINGS: There has been pronounced improvement in the diffuse bilateral scattered alveolar infiltrates. Stable cardiomegaly and mild pulmonary vascular congestion. Grossly stable trace bilateral pleural effusions. IMPRESSION: Pronounced improvement in the bilateral infiltrates suggesting pulmonary edema. Electronically signed by Antony Casas 09/25/2019 8:30 AM
[2019-09-25] MEDS: MUCOMYST 20% INH SCH ×2 (08:37→19:36)
[2019-09-25] MEDS: TEFLARO 400 MG in NS 250 ML IV SCH ×2 (09:25→20:38)
[2019-09-25] MEDS: KLOR-CON PO SCH (09:26)
[2019-09-25] MEDS: SINGULAIR PO SCH (09:26)
[2019-09-25] MEDS: SYNTHROID PO SCH (09:26)
[2019-09-25] MEDS: CORDARONE PO SCH (09:26)
[2019-09-25] MEDS: PRILOSEC PO SCH (09:26)
[2019-09-25] MEDS: ELIQUIS PO SCH ×2 (09:26→20:00)
[2019-09-25] MEDS: COREG PO SCH ×2 (09:26→20:00)
[2019-09-25] MEDS: NORVASC PO SCH (09:27)
[2019-09-25] MEDS: TUSSIONEX LIQUID PO PRN (11:11)
[2019-09-25] MEDS: CRESTOR PO SCH (19:59)
[2019-09-26] MEDS: ZOSYN 3.375 GM in NS 50 ML IV SCH ×4 (02:09→21:14)
[2019-09-26] MEDS: DUONEB (A & A) INH SCH ×6 (04:00→23:46)
--- NOTE | 2019-09-26 04:32 | PULMONOLOGY PROGRESS NOTE ---
DATE: 09/25/2019 SUBJECTIVE: The patient is awake, alert, and conversant. She has a good cough. She denies significant sputum this evening. OBJECTIVE: Vital Signs: The patient has been afebrile for the last 24 hours. Blood pressure 128/73, heart rate 63, respiratory rate 18, oxygen saturation 100%. HEENT: Pupils are equal and reactive. Oropharynx appears clear. Neck: Supple. Chest: Reveals occasional rhonchi bilaterally. Cardiac: S1, S2. Abdomen: Soft. Extremities: Without edema. LABORATORIES: Chest x-ray reveals marked improvement in pulmonary infiltrates. IMPRESSION: An 84-year-old with 1. Community-acquired pneumonia. 2. Hypoxemic respiratory failure. 3. History of heart failure. 4. Diabetes mellitus. DISCUSSION: An 84-year-old with problems outlined above. Her chest x-ray has markedly improved over the last 2 days. With her progression of disease and resolution of infiltrates, this is most consistent with a community-acquired pneumonia. She has improved while on amiodarone, making amiodarone toxicity significantly less likely. PLAN: 1. Continue current antibiotic regimen. 2. Wean oxygen as tolerated. 3. Single dose of Lasix tomorrow morning. cc: Neil Gallegos MD
[2019-09-26 04:56] LABS: ALLEN TEST YES; BE -2.1 mmoll (-3.0-3.0); BLOOD TYPE ARTERIAL; HCO3-(ACT) 23.3 mmoll (20.0-26.0); O2(CT) 10.3 mL/dL (15.0-23.0); O2HB 93.2 % (95.0-99.0); PCO2(98.6) 32 mmHg (35-45); PO2(98.6) 63 mmHg (60-100); SAMPLE BLOOD; SAO2 94.8 % (95.0-100.0); THB 7.8 g/dL (11.5-17.4); pH(98.6) 7.44 (7.35-7.45)
[2019-09-26 05:01] LABS: MODALITY CANNULA
[2019-09-26] MEDS ORDERED: LASIX IV ONE (06:00)
[2019-09-26] MEDS: HUMALOG SUBQ SCH ×4 (06:34→21:20)
[2019-09-26 06:58] LABS: ALBUMIN 2.7 g/dL (3.5-5.0); CREATININE 1.3 mg/dL (0.5-0.9); PHOSPHORUS 3.5 mg/dL (2.7-4.5); POTASSIUM 4.1 mmol/L (3.5-5.1)
[2019-09-26] MEDS: MUCOMYST 20% INH SCH ×2 (09:11→20:13)
[2019-09-26] MEDS: TEFLARO 400 MG in NS 250 ML IV SCH ×2 (09:28→21:14)
[2019-09-26] MEDS: PRILOSEC PO SCH (09:31)
[2019-09-26] MEDS: CORDARONE PO SCH (09:31)
[2019-09-26] MEDS: NORVASC PO SCH (09:31)
[2019-09-26] MEDS: ELIQUIS PO SCH ×2 (09:31→21:14)
[2019-09-26] MEDS: SINGULAIR PO SCH (09:31)
[2019-09-26] MEDS: SYNTHROID PO SCH (09:32)
[2019-09-26] MEDS: COREG PO SCH ×2 (09:32→21:14)
[2019-09-26] MEDS: KLOR-CON PO SCH (09:32)
[2019-09-26] MEDS: TUSSIONEX LIQUID PO PRN (09:38)
--- NOTE | 2019-09-26 09:51 | PROGRESS NOTE ---
DATE: 09/26/2019 SUBJECTIVE: Patient reports less short of breath today, now using CPAP machine. No other issues noted as per nursing staff overnight. OBJECTIVE: Vital Signs: Temperature 98.5 degrees, heart rate 67, respiratory rate 18, blood pressure 128/60, O2 saturation 3% 2 L nasal cannula. General: This is a chronically ill-looking, 84-year-old female, lying in bed, in no acute distress. Cardiovascular: S1, S2 heard. No murmurs, gallops, or rubs. Regular rate and rhythm. Respiratory: Rhonchi and wheezing noted in both pulmonary roblero. Patient not using any accessory muscles or having work of breathing. Abdomen: Soft, nontender to palpation. Bowel sounds present. No organomegaly. Extremities: 1+ pitting edema in both lower extremities. Peripheral pulses present in both legs. Neurological: Patient is alert and oriented x3. Moves 4 extremities. LABORATORY DATA: Reviewed. ASSESSMENT AND PLAN: 1. Acute respiratory failure secondary to community-acquired pneumonia. Patient continues to be on vancomycin and Zosyn. X-ray from yesterday shows good improvement in infiltrates, so at this point, we will continue current management. According to Pulmonary, possibility of amiodarone toxicity is definitely less likely. We will continue with the same management. 2. Congestive heart failure. That condition is getting better. We have stopped Lasix 40 mg IV q.12 hours a few days ago because of worsening renal function but now her renal function is getting better so Pulmonary has decided to place 1 dose of 60 mg of Lasix for today and will see how she does. 3. Diabetes mellitus type 2. We will continue with sliding scale insulin and Accu-Cheks before meals and also at bedtime. 4. Disposition. We will continue to monitor this patient closely here in the PVC unit. cc: Albert Draper MD
[2019-09-26] MEDS: CRESTOR PO SCH (21:13)
[2019-09-27] MEDS: CRESTOR PO SCH ×2 (01:51→20:25)
--- NOTE | 2019-09-27 02:38 | PULMONOLOGY PROGRESS NOTE ---
DATE: 09/26/2019 Subjective: Patient is awake and alert. No specific complaints today. Objective: Vital signs stable. No significant change in physical exam. Impression 1. Hypoxemic respiratory failure 2. Pneumonia/lung injury 3. Pulmonary hypertension Plan: 1. Wean oxygen as tolerated 2. Continue antibiotic regimen 3. Continue bronchial hygiene cc: Neil Gallegos MD MTDD
[2019-09-27] MEDS: DUONEB (A & A) INH SCH ×6 (03:25→23:20)
[2019-09-27] MEDS: ZOSYN 3.375 GM in NS 50 ML IV SCH ×4 (04:18→20:26)
[2019-09-27 06:43] LABS: BASO# 0.06 X1000 (0.0-0.2); EOS# 0.56 X1000 (0.0-0.7); EOS% 9.4 % (0.0-10.0); HEMATOCRIT 24.4 % (37.0-47.0); HEMOGLOBIN 7.3 g/dL (12.0-16.0); IMM GRAN# 0.02 X1000 (0.0-0.04); IMM GRAN% 0.3 % (0.0-0.5); LYMPH# 1.27 X1000 (1.2-3.4); LYMPH% 21.4 % (20.5-51.1); MCH 23.2 PG (27-31); MCHC 29.9 g/dL (33-37); MCV 77.7 FL (81-99); MONO# 0.54 X1000 (0.11-0.59); MONO% 9.1 % (1.7-9.3); MPV 9.9 FL (7.4-10.4); NEUT# 3.49 X1000 (1.4-6.5); NEUT% 58.8 % (42.2-75.2); PLT 364 X1000 (130-400); RBC 3.14 XMIL (4.2-5.4); RDW 17.1 % (11.5-14.5); WBC 5.94 X1000 (4.8-10.8)
[2019-09-27 06:47] LABS: ALBUMIN 2.7 g/dL (3.5-5.0); CALCIUM 8.8 mg/dL (8.8-10.2); CREATININE 1.2 mg/dL (0.5-0.9); POTASSIUM 3.8 mmol/L (3.5-5.1)
[2019-09-27] MEDS ORDERED: LASIX IV ONE (07:00)
[2019-09-27] MEDS: HUMALOG SUBQ SCH ×4 (07:06→20:26)
--- NOTE | 2019-09-27 09:16 | PROGRESS NOTE ---
DATE: 09/27/2019 SUBJECTIVE: Patient reports continues to feel better. Definitely she is not short of breath. Not using CPAP machine. No other issues noted as per nursing staff overnight. OBJECTIVE: Vital Signs: Temperature 98.3 degrees, heart rate 85, respiratory rate 20, blood pressure 128/60, O2 saturation 94% on CPAP but while when she is not using CPAP, she is requiring 2 L of oxygen by nasal cannula. General: This is a chronically ill-looking, 84-year-old female lying in bed, in no acute distress. Cardiovascular: S1, S2 heard. No murmurs, gallops, or rubs. Regular rate and rhythm. Respiratory: Rhonchi and wheezing noted in both pulmonary roblero. Patient is not using any accessory muscles or having work of breathing. Abdomen: Soft. Nontender to palpation. Bowel sounds present. No organomegaly. Extremities: No clubbing, cyanosis and 1+ pitting edema in both lower extremities. Peripheral pulses present in both legs. Neurological: Patient alert and oriented x3. Moves 4 extremities. LABORATORY DATA: CBC shows hemoglobin 7.3 and the creatinine is 1.2, is almost back to normal. ASSESSMENT AND PLAN: 1. Acute respiratory failure secondary to community-acquired pneumonia. Patient continues to be on Teflaro day #3 of antibiotic, and also Zosyn day #8 of treatment. Patient reports feeling better. X-ray from 2 days ago shows good improvement of her infiltrates so at this point, we will continue with the same management. We are going to repeat x-ray tomorrow. 2. Congestive heart failure. Condition is getting better. She has been on Lasix at presentation, but we stopped it because of elevated creatinine. Creatinine continues to improve. The patient received 2 days Lasix 80 and yesterday 60 IV as per Pulmonary recommendation. We will continue to monitor this patient closely. I think tomorrow if creatinine is back to normal, we can restart home doses of Lasix. 3. Diabetes mellitus type 2. We will continue with sliding scale insulin and Accu-Chek before meals and also at bedtime. 4. Disposition. I think this patient is getting better. We keep this patient over the weekend, and on Monday, we will see if this patient needs to go to rehab facility or not. cc: Albert Draper MD
[2019-09-27] MEDS: TEFLARO 400 MG in NS 250 ML IV SCH ×2 (09:19→19:08)
[2019-09-27] MEDS: KLOR-CON PO SCH (09:24)
[2019-09-27] MEDS: SINGULAIR PO SCH (09:24)
[2019-09-27] MEDS: COREG PO SCH ×2 (09:24→20:24)
[2019-09-27] MEDS: CORDARONE PO SCH (09:25)
[2019-09-27] MEDS: ELIQUIS PO SCH ×2 (09:25→20:26)
[2019-09-27] MEDS: PRILOSEC PO SCH (09:25)
[2019-09-27] MEDS: SYNTHROID PO SCH (09:25)
[2019-09-27] MEDS: NORVASC PO SCH (09:25)
--- NOTE | 2019-09-27 09:48 | PROVIDER PROGRESS NOTE ---
Progress Note Pulmonary additional note: I have seen and examined the case, reviewed the EMR, labs, latest images and other medical teams notes. Also reviewed the VENEER TAPER notes and signed necessary form(s). I have noted changes in condition from yesterday. Please see also signed progress sheet. I reviewed the medications in summary list. I reviewed the orders of the patient. Acute respiratory failure. Pneumonia and CHF. Atrial fibrillation on amiodarone therapy. Radiographically improving. Chest x-ray on Monday. I checked Oxygen settings and titrated to patient needs per clinical protocols and watched the patient responses. Since yesterday, doing Francisco and tolerating O2 supplement. Prognosis: Guarded for now. I reviewed latest notes from Dr. Fernando and Dr Gallegos. I did the evaluation exam and management. on the other sheet and the ORNAMENTAL BRICK INSTALLER did the scribing only. I spent 31 minutes in this process
[2019-09-27] MEDS: TUSSIONEX LIQUID PO PRN (11:09)
[2019-09-27] MEDS: MUCOMYST 20% INH SCH ×2 (11:28→19:56)
[2019-09-28] MEDS: ZOSYN 3.375 GM in NS 50 ML IV SCH ×4 (02:18→21:57)
[2019-09-28] MEDS: DUONEB (A & A) INH SCH ×6 (03:35→23:35)
[2019-09-28] MEDS: HUMALOG SUBQ SCH ×4 (06:23→21:57)
[2019-09-28 07:02] LABS: BASO# 0.06 X1000 (0.0-0.2); BASO% 0.9 % (0.0-0.8); EOS# 0.63 X1000 (0.0-0.7); EOS% 9.3 % (0.0-10.0); HEMATOCRIT 23.1 % (37.0-47.0); HEMOGLOBIN 6.9 g/dL (12.0-16.0); IMM GRAN# 0.03 X1000 (0.0-0.04); IMM GRAN% 0.4 % (0.0-0.5); LYMPH# 1.44 X1000 (1.2-3.4); LYMPH% 21.2 % (20.5-51.1); MCH 23.4 PG (27-31); MCHC 29.9 g/dL (33-37); MCV 78.3 FL (81-99); MONO# 0.52 X1000 (0.11-0.59); MONO% 7.7 % (1.7-9.3); MPV 10.1 FL (7.4-10.4); NEUT% 60.5 % (42.2-75.2); PLT 357 X1000 (130-400); RBC 2.95 XMIL (4.2-5.4); RDW 17.5 % (11.5-14.5); WBC 6.78 X1000 (4.8-10.8)
[2019-09-28 08:07] LABS: ALBUMIN 2.7 g/dL (3.5-5.0); CALCIUM 8.8 mg/dL (8.8-10.2); CREATININE 1.2 mg/dL (0.5-0.9); PHOSPHORUS 3.1 mg/dL (2.7-4.5); POTASSIUM 3.7 mmol/L (3.5-5.1)
[2019-09-28] MEDS: TEFLARO 400 MG in NS 250 ML IV SCH ×2 (08:42→20:13)
[2019-09-28] MEDS: MUCOMYST 20% INH SCH ×2 (08:56→20:10)
[2019-09-28] MEDS: SYNTHROID PO SCH (09:23)
[2019-09-28] MEDS: CORDARONE PO SCH (09:23)
[2019-09-28] MEDS: ELIQUIS PO SCH ×2 (09:23→20:17)
[2019-09-28] MEDS: COREG PO SCH ×2 (09:23→20:21)
[2019-09-28] MEDS: NORVASC PO SCH (09:23)
[2019-09-28] MEDS: KLOR-CON PO SCH (09:23)
[2019-09-28] MEDS: SINGULAIR PO SCH (09:23)
[2019-09-28] MEDS: PRILOSEC PO SCH (09:24)
--- NOTE | 2019-09-28 11:53 | Diag Imaging Result Doc PS360 ---
CHEST-2 VIEWS - 09/28/2019 INDICATION: abnormal exam COMPARISON: 09/25/2019 FINDINGS: Stable cardiomegaly and pulmonary vascular congestion. There is slight worsening infiltrate/atelectasis in the right lower lobe. Stable central pulmonary edema. Stable trace pleural effusions. IMPRESSION: Slight worsening at the right lower lobe. Electronically signed by Antony Casas 09/28/2019 11:50 AM
[2019-09-28] MEDS ORDERED: NS 250 ML IV SCH (12:00)
--- NOTE | 2019-09-28 12:23 | PROVIDER PROGRESS NOTE ---
Progress Note Pulmonary additional note: I have seen and examined the case, reviewed the EMR, labs, latest images and other medical teams notes. Also reviewed the CHIEF SUPPLY CHAIN OFFICER notes and signed necessary form(s). I have noted changes in condition from yesterday. Please see also signed progress sheet. I reviewed the medications in summary list. I reviewed the orders of the patient. Acute respiratory failure. Pneumonia and CHF. Atrial fibrillation on amiodarone therapy. Radiographically improving. I checked Oxygen settings and titrated to patient needs per clinical protocols and watched the patient responses. Since yesterday, CXR is improving. Doing Francisco and tolerating O2 supplement. Prognosis: Guarded for now. I reviewed latest notes from Dr. Fernando. Case discussed with patient and her daughters. I did the evaluation exam and management. on the other sheet and the RN CLINICAL APPEALS did the scribing only. I spent 32 minutes in this process
[2019-09-28] MEDS ORDERED: LASIX IV ONE (13:04)
--- NOTE | 2019-09-28 15:21 | PROGRESS NOTE ---
DATE: 09/28/2019 INTERVAL HISTORY: Patient reports a slight increase in dyspnea this morning, although oxygenation approximately stable. Still with a mildly productive cough. Afebrile. No other acute events. No other new complaints. REVIEW OF SYSTEMS: Twelve point review of systems negative except as per interval history. LABS: WBC 6.7, hemoglobin 6.9, hematocrit 23.1, platelets 357,000. Sodium 145, potassium 3.7, BUN 14, creatinine 1.2, glucose 95 to 158. IMAGING: Chest x-ray with slightly worsened right lower lobe, likely atelectasis versus infiltrate and stable central pulmonary edema. VITALS: T-max 98.6 degrees, pulse 60, respirations 17, blood pressure 137/84, O2 saturation 98% on 3 L by nasal cannula. PHYSICAL EXAMINATION: General: No acute distress. Vitals: As above. HEENT: Normocephalic, atraumatic. Cardiovascular: Regular rate and rhythm. No murmurs noted. Pulmonary: Bibasilar crackles noted. No wheezing currently. No increased work of breathing. Abdomen: Soft, nontender, nondistended. Bowel sounds positive. Extremities: Peripheral pulses intact. 1+ pitting edema, bilateral lower extremities below the knee. Neurologic: Cranial nerves grossly intact. No focal deficits. Psychiatric: Normal mood and affect. Awake, alert, cooperative. ASSESSMENT AND PLAN: 1. Pneumonia, likely acute on chronic diastolic congestive heart failure, mild pulmonary hypertension. The patient with respiratory distress secondary to all of the above. On Teflaro and Zosyn. Has had some improvement from admission, but slightly worse today. X-ray obtained does show a little bit more of an infiltrate in the right lower lobe but favor atelectasis over asymmetric edema to worsening infection. Patient remains afebrile. No leukocytosis. No tachycardia. Continue antibiotics with Zosyn and Teflaro for now. We will go ahead and give one more dose of Lasix, try to optimize her respiratory status. See how she does over the next day or so. 2. Anemia. Patient is chronically anemic but has trickled down a little bit over the course of hospitalization. Hemoglobin down to 6.9 today. We will go ahead and transfuse 1 unit and see if that helps at all with her fatigue and dyspnea. 3. Paroxysmal atrial fibrillation. Has been normal sinus rhythm on this hospitalization since recent cardioversion. Continue home Eliquis and amiodarone and Coreg. 4. Diabetes. Good control on current regimen, monitor. 5. Hyperlipidemia. Continue home statin. 6. Hypertension. Acceptable control on Norvasc and Coreg. Monitor. 7. Hypothyroidism. Continue Synthroid.
[2019-09-28] MEDS: CRESTOR PO SCH (20:17)
[2019-09-29] MEDS: TUSSIONEX LIQUID PO PRN (00:19)
[2019-09-29] MEDS: ZOSYN 3.375 GM in NS 50 ML IV SCH ×3 (02:35→14:35)
[2019-09-29] MEDS: DUONEB (A & A) INH SCH ×6 (03:30→23:15)
[2019-09-29 06:13] LABS: BASO# 0.04 X1000 (0.0-0.2); BASO% 0.5 % (0.0-0.8); EOS# 0.55 X1000 (0.0-0.7); EOS% 7.3 % (0.0-10.0); HEMATOCRIT 26.8 % (37.0-47.0); HEMOGLOBIN 8.2 g/dL (12.0-16.0); IMM GRAN# 0.03 X1000 (0.0-0.04); IMM GRAN% 0.4 % (0.0-0.5); LYMPH% 18.5 % (20.5-51.1); MCH 24.3 PG (27-31); MCHC 30.6 g/dL (33-37); MCV 79.3 FL (81-99); MONO# 0.51 X1000 (0.11-0.59); MONO% 6.7 % (1.7-9.3); MPV 9.6 FL (7.4-10.4); NEUT# 5.05 X1000 (1.4-6.5); NEUT% 66.6 % (42.2-75.2); PLT 337 X1000 (130-400); RBC 3.38 XMIL (4.2-5.4); RDW 17.6 % (11.5-14.5); WBC 7.58 X1000 (4.8-10.8)
[2019-09-29] MEDS: HUMALOG SUBQ SCH ×4 (06:21→20:35)
[2019-09-29 06:42] LABS: ALBUMIN 2.5 g/dL (3.5-5.0); CALCIUM 8.6 mg/dL (8.8-10.2); CREATININE 1.2 mg/dL (0.5-0.9); PHOSPHORUS 2.8 mg/dL (2.7-4.5); POTASSIUM 3.5 mmol/L (3.5-5.1)
[2019-09-29 07:11] LABS: EOS 8 % (1-10); LYMPHS 16 % (21-51); MONO 6 % (1-9); NRBC 1 % (0-0); SEGS 70 % (42-75)
[2019-09-29] MEDS: MUCOMYST 20% INH SCH ×2 (08:16→20:04)
[2019-09-29] MEDS: TEFLARO 400 MG in NS 250 ML IV SCH (08:27)
[2019-09-29] MEDS: NORVASC PO SCH (09:51)
[2019-09-29] MEDS: CORDARONE PO SCH (09:51)
[2019-09-29] MEDS: SINGULAIR PO SCH (09:51)
[2019-09-29] MEDS: SYNTHROID PO SCH (09:51)
[2019-09-29] MEDS: COREG PO SCH ×2 (09:51→20:50)
[2019-09-29] MEDS: PRILOSEC PO SCH (09:51)
[2019-09-29] MEDS: ELIQUIS PO SCH (09:51)
[2019-09-29] MEDS: KLOR-CON PO SCH (09:51)
--- NOTE | 2019-09-29 10:54 | Diag Imaging Result Doc PS360 ---
CHEST-PORTABLE - 09/29/2019 INDICATION: worsening hypoxia COMPARISON: 09/28/2019 FINDINGS: There has been worsening in the diffuse bilateral mixed infiltrates. Stable small to moderate bilateral pleural effusions. Stable cardiomegaly and pulmonary vascular congestion. IMPRESSION: Significant worsening in the diffuse bilateral infiltrates/pulmonary edema. Electronically signed by Antony Casas 09/29/2019 10:51 AM
[2019-09-29] MEDS: LASIX IV SCH ×2 (11:39→22:42)
[2019-09-29] MEDS ORDERED: MERREM 2 GM in NS 50 ML IV SCH (15:30)
--- NOTE | 2019-09-29 16:47 | PROGRESS NOTE ---
DATE: 09/29/2019 INTERVAL HISTORY: The patient with further increase in dyspnea this morning. Cough remains largely nonproductive, although with occasional yellow sputum. Still afebrile but with slightly increased work of breathing this morning prompting further workup as below. No other acute events or new complaints. REVIEW OF SYSTEMS: Twelve point review of systems negative except as per interval history. LABS: WBC 7.5, hemoglobin 8.2, hematocrit 26.8, platelets 337,000. Sodium 144, potassium 3.5, bicarb 22, BUN 12, creatinine 1.2 glucose 92 to 165 next. IMAGING: Chest x-ray with worsened diffuse bilateral infiltrates and/or pulmonary edema with moderate bilateral effusions. VITALS: T-max 98.2 degrees, pulse 63, respirations 22, blood pressure 136/68 O2 saturation 93% on 3 L on CPAP this morning. Little bit improved this afternoon to 95 on 3 L by nasal cannula. PHYSICAL EXAMINATION: General: No acute distress. Vitals: As above. HEENT: Normocephalic, atraumatic. Cardiovascular: Regular rate and rhythm. Lungs: Significantly worse rales in both lower. Slightly decreased at the very bases. No wheezing currently. Not in distress, but does have some slightly increased work of breathing and accessory muscle use. Abdomen: Soft, nontender, nondistended. Bowel sounds positive. Extremities: Peripheral pulses intact. Trace pitting edema bilaterally essentially stable. Neurologic: Cranial nerves grossly intact. No focal deficits. Psychiatric: Normal mood and affect. Awake, alert, cooperative. ASSESSMENT AND PLAN: 1. Pneumonia, acute on chronic diastolic congestive heart failure, mild pulmonary hypertension. Patient with respiratory distress and worsened oxygenation this morning secondary to the above. On the Teflaro and Zosyn which should give her some pretty good coverage, but x-ray has significantly worsened today. Has large effusions and pretty diffuse infiltrates which looks more like edema than worsening pneumonia to me but we will go ahead and get Infectious Disease opinion on her antibiotics. Patient remains afebrile with no leukocytosis. I have been dosing her with Lasix daily and did give her 40 yesterday but does not appear to have had adequate diuresis. Actually up about a L from yesterday. We will give Lasix 60 b.i.d. via IV and monitor in's and out's. May end up needing a Lasix drip or some metolazone. Echocardiogram 6 or 7 months ago had normal ejection fraction , but we will recheck a limited echocardiogram to make sure her ejection fraction Has not changed. Monitor closely. 2. Anemia. The patient chronically anemic. Has had slight decrease over the course of hospitalization, so we transfused 1 unit of blood yesterday with appropriate increase. Does not seem to have helped her dyspnea much, however. 3. Paroxysmal atrial fibrillation. The patient with recent cardioversion on previous hospitalization. Has been normal sinus rhythm since then. Continue home Eliquis, amiodarone and Coreg. 4. Diabetes. Good control current regimen monitor. 5. Hyperlipidemia, continue home statin. 6. Hypertension in acceptable control on Norvasc, Coreg. Continue to monitor blood pressure in the setting of aggressive diuresis. 7. Hypothyroidism. Continue Synthroid. Addendum: respiratory status slightly improved with aggressive diuresis this morning but patient with dark/possibly melanotic stool this afternoon. responded appropriately to transfusion yesterday and only 1 dark stool so low suspicion for major bleed. recent iron studies did not show iron deficiency. will hold home eliquis for now though and monitor blood counts. JACINTA
--- NOTE | 2019-09-29 17:05 | INFECTIOUS DISEASE CONSULT REP ---
DATE: 09/29/2019 CONCLUSION: The patient is admitted to the hospital with bilateral pneumonia which is getting worse on chest x-ray. 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 Also, the patient's increased infiltrates on chest x-ray may in part be due to pulmonary venous congestion as well as infection. RECOMMENDATIONS: I discontinued ceftaroline and Zosyn and put the patient on Zyvox and meropenem. Some of the side effects of Zyvox and meropenem including rash, diarrhea, seizures, and hematotoxicity have been explained to the patient who agrees with treatment. I have also ordered immunoglobulin levels because the patient seems to have a lot of infections and she may have an immunoglobulin deficiency and finally, I have ordered a procalcitonin to see if the patient does indeed have pneumonia or is it more of a pulmonary venous congestion. DISCUSSION: The patient tells me that for the past 2 months, she has been dyspneic and she coughs. Occasionally she brings up yellow sputum. She has not been having fever or shaking chills. Her chest x-ray shows worsening of bilateral pulmonary infiltrates/pulmonary edema. The patient's screen for influenza was negative. CBC shows a white blood cell of 7580, hemoglobin 8.2 and platelet count 337,000. Creatinine is 1.2. GFR is 52. Stool for Clostridium difficile is negative. Sputum culture grew out normal vish. MEDICAL EDUCATION COORDINATOR HISTORY: Patient is a 6, para 6, ABG 0. She has had a hysterectomy. REVIEW OF SYSTEMS: Eyes and ears: Her hearing and vision are good. Neck: No stiffness. Respiratory: See present illness. Cardiac: No chest pain or palpitations. GI: The patient started having diarrhea 2 days ago and her stool for Clostridium difficile toxin and antigen is negative. : No dysuria or flank pain. Neurologic: No seizures, no loss of motor or sensory function. PREVIOUS HOSPITALIZATIONS AND OPERATIONS: She has had back surgery, carpal tunnel surgery and removal of colon polyps. She has had 6 labor and deliveries and a hysterectomy. MEDICAL DISEASES: Positive for diabetes mellitus, hypertension, cancer, atrial fibrillation and parotid cancer. The patient also has hypothyroidism and hyperlipidemia. INFECTIOUS DISEASE HISTORY: Positive for pneumonia and UTI. FAMILY HISTORY: Positive for diabetes mellitus, hypertension, myocardial infarction, stroke and cancer. SOCIAL HISTORY: [place] She is a . She lives with her daughter. She has cats for pets. She does not smoke cigarettes, drink alcoholic beverages or abuse drugs. MEDICATIONS AT HOME: Include albuterol inhaler, amiodarone, amlodipine, Eliquis, carvedilol, clonidine, Lasix, Synthroid, metformin, Singulair, vitamins and minerals, rosuvastatin. PHYSICAL EXAMINATION: Vital Signs: Temperature is 98 degrees, pulse 63, respirations 22, blood pressure is 136/68, patient is 5 feet 3 inches tall, weighs 148 pounds. General: This is an ill- appearing elderly female. She is in no acute distress. Head/eyes/ears/nose/throat: She can hear my spoken words and see near objects. She does not have any white patches in her mouth. Neck: No meningismus. Lungs: Clear to auscultation. Cardiovascular: Heart rate is irregular. Abdomen: Soft and nontender. Extremities: Both legs are edematous. Neurologic: The patient is alert. She can move her extremities. There is no tremor. Her memory as regarding her medical history seems to be slightly diminished. Thank you for the consult. cc: Anderson Mishra MD
[2019-09-29] MEDS: MERREM 2 GM in NS 100 ML IV SCH ×2 (17:25→22:48)
[2019-09-29] MEDS: ZYVOX PO SCH (20:51)
[2019-09-29] MEDS: CRESTOR PO SCH (20:51)
[2019-09-30] MEDS: DUONEB (A & A) INH SCH ×6 (03:40→23:40)
[2019-09-30 06:11] LABS: BASO# 0.03 X1000 (0.0-0.2); BASO% 0.4 % (0.0-0.8); EOS# 0.44 X1000 (0.0-0.7); EOS% 6.4 % (0.0-10.0); HEMOGLOBIN 8.1 g/dL (12.0-16.0); IMM GRAN# 0.02 X1000 (0.0-0.04); IMM GRAN% 0.3 % (0.0-0.5); LYMPH# 1.36 X1000 (1.2-3.4); LYMPH% 19.9 % (20.5-51.1); MCV 79.9 FL (81-99); MONO# 0.48 X1000 (0.11-0.59); MPV 9.8 FL (7.4-10.4); NEUT# 4.52 X1000 (1.4-6.5); PLT 329 X1000 (130-400); RBC 3.38 XMIL (4.2-5.4); RDW 18.1 % (11.5-14.5); WBC 6.85 X1000 (4.8-10.8)
[2019-09-30] MEDS: HUMALOG SUBQ SCH ×4 (06:30→21:25)
[2019-09-30] MEDS ORDERED: D50W SYRINGE IV ONE (06:40)
[2019-09-30 06:50] LABS: ALBUMIN 2.7 g/dL (3.5-5.0); CALCIUM 8.7 mg/dL (8.8-10.2); CREATININE 1.2 mg/dL (0.5-0.9); PHOSPHORUS 2.7 mg/dL (2.7-4.5); POTASSIUM 3.1 mmol/L (3.5-5.1)
[2019-09-30] MEDS: MUCOMYST 20% INH SCH ×2 (07:46→20:01)
[2019-09-30] MEDS: SYNTHROID PO SCH (09:15)
[2019-09-30] MEDS: SINGULAIR PO SCH (09:15)
[2019-09-30] MEDS: COREG PO SCH ×2 (09:15→21:26)
[2019-09-30] MEDS: NORVASC PO SCH (09:15)
[2019-09-30] MEDS: MERREM 2 GM in NS 100 ML IV SCH ×2 (09:15→16:28)
[2019-09-30] MEDS: CORDARONE PO SCH (09:15)
[2019-09-30] MEDS: KLOR-CON PO SCH (09:15)
[2019-09-30] MEDS: ZYVOX PO SCH ×2 (09:15→21:25)
[2019-09-30] MEDS: PRILOSEC PO SCH (09:16)
--- NOTE | 2019-09-30 13:32 | ECHO REPORT ---
ORDER DATE: 09/29/2019 INDICATION: Pulmonary edema, pneumonia, diabetes, hypertension, atrial fibrillation. FINDINGS: 1. Right atrium appears normal in size. 2. Mild tricuspid regurgitation. RV systolic pressure of 53, suggesting pulmonary hypertension. 3. Right ventricle appears to be normal in size with probable normal RV systolic function. 4. Moderate pulmonic insufficiency. 5. The left atrium appears to be enlarged. 6. No mitral valve prolapse. Mild mitral regurgitation. Thickening of the mitral leaflets is noted. 7. The left ventricle appears normal in size with an end-diastolic dimension of 4.6 cm. Mild left ventricular hypertrophy with a posterior and interventricular septal wall thickness of 1.3 cm. There is reduction in LV systolic function with an estimated EF in the 40-45% range. There appears to be some hypokinesis of the inferior and inferior septum. 8. Aortic valve is sclerotic with some restriction in motion. The peak gradient across the valve is 22 with a mean of 11. The valve area is 1.3 cm2 by the continuity equation. This appears relatively stable from February of 2019 at which time the peak and mean gradients were 28 and 15 respectively. Mild insufficiency is noted. 9. The aorta appears normal in visualized segments. 10. No pericardial effusion seen. Pleural effusion is noted. 11. IVC appears to be dilated. cc: Marty Chung MD
--- NOTE | 2019-09-30 14:07 | PROGRESS NOTE ---
DATE: 09/30/2019 SUBJECTIVE: The patient has no major complaints. She is still coughing up a lot of secretions. OBJECTIVE: Vital Signs: Blood pressure 139/59, heart rate 72, respiratory rate of 19, temperature 98.2 degrees, she is afebrile, saturating 99% on 3 L. Cardiovascular: Regular rate and rhythm. Pulmonary: She has got inspiratory rales at the bases. Occasional rhonchi, wheezing. GI: Soft, nontender, nondistended. Bowel sounds are positive. LABORATORY DATA: White count is 6, hemoglobin and hematocrit 8 and 27, platelets 329,000. Potassium is 3.1. Immunoglobulins were normal. PROBLEM LIST: 1. Pneumonia, multilobar. She has been changed from Teflaro and Zosyn to Zyvox and meropenem per Dr. Mishra, and we will continue to follow. I think we will try to get a sputum culture because she does have fairly productive sputum, and it has consistency to it, and opacity. 2. Volume overload, pulmonary edema. We are still waiting on final echocardiogram report. Continue diuretics, and follow closely. 3. Paroxysmal atrial fibrillation. She is stable on amiodarone, Coreg, and Eliquis. 4. Type 2 diabetes. Continue sliding scale, and follow up on her current medications. She is probably getting pretty close to stable to go to the floor. A procalcitonin level has been analyzed as well. cc: Kerwin Navarro MD
--- NOTE | 2019-09-30 15:01 | INFECTIOUS DISEASE PROGRESS NO ---
DATE: 09/30/2019 PRESENT ILLNESS: The patient has a pneumonia, which was getting worse on chest x-ray. I thought that she may have an immunoglobulin deficiency. However, the immunoglobulin levels are well within the normal range. Part of the patient's infiltrates thought to be pneumonia could also be pulmonary venous congestion. MEDICATIONS: This is day 1 of treatment with Zyvox and meropenem. PHYSICAL EXAMINATION: Vital Signs: Temperature is 98.2 degrees, pulse 72, respirations 19, blood pressure 139/59. General: This is a chronically ill-appearing, elderly female. She is in no acute distress. HEENT: She can hear my spoken words and see near objects. I did not see any white patches in her mouth. Neck: No pain with movement. Lungs: Clear to auscultation. Cardiovascular: Heart rate is regular. Abdomen: Soft and nontender. Extremities: Both legs are edematous, but not erythematous. Neurologic: The patient is awake. She can move her extremities. There is no tremor. Integument: No rash noted. IMAGING AND LABORATORY DATA: There is no new radiographic study for today. CBC showed a white count of 6850, hemoglobin 8.1, and platelet count 329,000. Creatinine is 1.2. GFR is 52. IgA is 339, and IgG is 1723. ASSESSMENT AND PLAN: The patient has a pneumonia, which may be complicated by pulmonary venous congestion. My plan is to continue Zyvox and meropenem. Also, a procalcitonin level has been ordered, which will help to differentiate the patient having pneumonia or pulmonary venous congestion. The patient does not have an immunoglobulin deficiency, and therefore she does not require immunoglobulin infusions. My plan is to continue with the antibiotics pending the procalcitonin level. COMORBIDITIES: Diabetes mellitus, cancer. cc: Anderson Mishra MD
[2019-09-30] MEDS: CRESTOR PO SCH (21:25)
--- NOTE | 2019-09-30 22:22 | PULMONOLOGY PROGRESS NOTE ---
DATE: 09/30/2019 SUBJECTIVE: The patient is awake and alert. Her work of breathing is slightly more than at her prior visit. Family reports her breathing became worse after her blood transfusion. OBJECTIVE: Vital Signs: The patient has been afebrile for the last 10 days, blood pressure 137/70, heart rate 70, respiratory rate 19, oxygen saturation 99% on 4 L per nasal cannula. HEENT: Pupils are equal and reactive. Oropharynx appears clear. Neck: Supple. Chest: Reveals bilateral crackles. Cardiac exam: S1, S2. Abdomen: Soft. Extremities: Reveal trace edema. LABORATORIES: Serial chest x-rays are reviewed. She had significant worsening of her chest radiograph on the morning following transfusion. Microbiology reveals no new data. IMPRESSION: An 84-year-old with: 1. Acute hypoxemic respiratory failure. 2. Pulmonary edema with fluid overload. 3. Possible pneumonia. 4. Pulmonary hypertension. 5. Mild LV dysfunction with mild to moderate aortic stenosis. PLAN: 1. Agree with Lasix as outlined by Dr. Teodoro Navarro. 2. Continue antibiotics per Infectious Disease. 3. We will obtain a two-view follow-up chest x-ray tomorrow. cc: Neil Gallegos MD
[2019-10-01] MEDS: MERREM 2 GM in NS 100 ML IV SCH ×4 (00:09→23:13)
[2019-10-01] MEDS: DUONEB (A & A) INH SCH ×6 (03:35→23:45)
[2019-10-01] MEDS: TUSSIONEX LIQUID PO PRN (04:08)
[2019-10-01] MEDS: LASIX IV ONE ×2 (04:08→04:39)
[2019-10-01 06:16] LABS: BASO# 0.03 X1000 (0.0-0.2); BASO% 0.4 % (0.0-0.8); EOS# 0.59 X1000 (0.0-0.7); EOS% 7.8 % (0.0-10.0); HEMATOCRIT 27.6 % (37.0-47.0); HEMOGLOBIN 8.2 g/dL (12.0-16.0); LYMPH% 21.3 % (20.5-51.1); MCH 23.9 PG (27-31); MCHC 29.7 g/dL (33-37); MCV 80.5 FL (81-99); MONO# 0.58 X1000 (0.11-0.59); MONO% 7.7 % (1.7-9.3); MPV 10.1 FL (7.4-10.4); NEUT# 4.72 X1000 (1.4-6.5); NEUT% 62.8 % (42.2-75.2); PLT 350 X1000 (130-400); RBC 3.43 XMIL (4.2-5.4); RDW 18.5 % (11.5-14.5); WBC 7.52 X1000 (4.8-10.8)
[2019-10-01] MEDS: HUMALOG SUBQ SCH ×4 (06:18→21:08)
[2019-10-01 06:29] LABS: CALCIUM 8.8 mg/dL (8.8-10.2); CREATININE 1.4 mg/dL (0.5-0.9); POTASSIUM 3.4 mmol/L (3.5-5.1)
[2019-10-01] MEDS: MUCOMYST 20% INH SCH ×2 (07:47→20:19)
[2019-10-01] MEDS: PRILOSEC PO SCH (08:12)
[2019-10-01] MEDS: KLOR-CON PO SCH (08:12)
[2019-10-01] MEDS: SINGULAIR PO SCH (08:12)
[2019-10-01] MEDS: COREG PO SCH ×2 (08:12→21:09)
[2019-10-01] MEDS: CORDARONE PO SCH (08:12)
[2019-10-01] MEDS: ZYVOX PO SCH ×2 (08:13→21:09)
[2019-10-01] MEDS: NORVASC PO SCH (08:13)
[2019-10-01] MEDS: SYNTHROID PO SCH (08:13)
--- NOTE | 2019-10-01 08:22 | Diag Imaging Result Doc PS360 ---
CHEST-2 VIEWS - 10/01/2019 INDICATION: abnormal exam COMPARISON: 09/29/2019 FINDINGS: Stable cardiomegaly and pulmonary vascular congestion. Stable small bilateral pleural effusions. There has been significant improvement in the central and bibasilar infiltrates/edema. IMPRESSION: Significant improvement in the extensive bilateral infiltrates/edema. Electronically signed by Antony Casas 10/01/2019 8:20 AM
--- NOTE | 2019-10-01 12:39 | INFECTIOUS DISEASE PROGRESS NO ---
DATE: 10/01/2019 PRESENT ILLNESS: The patient has pneumonia which has improved as seen on the most recent chest x- ray. The patient's immunoglobulin levels are well within the normal range and thus the patient does not have an immunoglobulin deficiency. MEDICATIONS: This is day 2 of treatment with Zyvox and meropenem. PHYSICAL EXAMINATION: Vital Signs: Temperature is 98 degrees, pulse 78, respirations 15, blood pressure 134/62. General: This is a chronically ill-appearing elderly female she is in no acute distress. Head/eyes/ears/nose/throat: She can hear my spoken words and see near objects. She does not have any white coating on her tongue. Neck: No pain with movement. Lungs: Clear to auscultation. Cardiovascular: Heart rate is regular. Abdomen: Soft and nontender. Extremities: The patient has bilateral leg edema but no erythema. Neurologic: The patient is alert. She can move her extremities. There is no tremor. Integument: No rash. LABORATORY AND RADIOLOGY: The patient's chest x-ray shows improvement in the bilateral infiltrates. The CBC shows a white count of 7520, hemoglobin 8.2, and platelet count 350,000. Creatinine is 1.4. GFR is 43. IgG is 1723, IgA is 339. The patient's stools for Clostridium difficile antigen and toxin are negative. Sputum culture grew normal vish. Influenza is screen is negative. ASSESSMENT AND PLAN: Patient has pneumonia with pulmonary venous congestion. My plan is to continue Zyvox and meropenem, procalcitonin level has been ordered but as of yet the report is not back. I plan to continue with the current antibiotics pending further studies including a procalcitonin level. COMORBIDITIES: The patient has diabetes and cancer. cc: Anderson Mishra MD
--- NOTE | 2019-10-01 14:06 | PROGRESS NOTE ---
DATE: 10/01/2019 SUBJECTIVE: The patient has no major complaints. OBJECTIVE: Vital signs: Blood pressure is 134/62, heart rate of 78, respiratory rate of 15, temperature 98 degrees, 100% on 4 L. Cardiovascular: Regular rate and rhythm. Pulmonary: Bilateral breath sounds with rales at the bases. Gastrointestinal: Soft, nontender, nondistended. Bowel sounds are positive. LABORATORY DATA: White count 7, hemoglobin and hematocrit 8 and 27, platelets 350,000. Creatinine 1.4, potassium 3.4. PROBLEM LIST: 1. Multilobar pneumonia. She is currently on linezolid and Merrem and is improving. Dr. Mishra is following. Those were started on the , so day 2 on those. 2. Volume overload. I do think she has a component of pulmonary edema. She has been placed on diuretics. Her echocardiogram showed an ejection fraction of 40 to 45 percent so she does have a little bit of a drop in her ejection fraction. She does have some aortic sclerosis although it is stable since February of last year. She does have a little bit of wall motion abnormality. Now apparently her echo, I am not sure what the last level was. 3. Diabetes is stable currently on her current medications. DISPOSITION: I think she is doing better. We may be able to get her to the floor, so we will continue to monitor. She got some extra Lasix this morning but her x-ray definitely looked better. cc: Kerwin Navarro MD
[2019-10-01] MEDS ORDERED: DIFLUCAN PO ONE (16:34)
[2019-10-01] MEDS: LASIX IV SCH (17:30)
[2019-10-01] MEDS: CRESTOR PO SCH (21:09)
--- NOTE | 2019-10-01 21:12 | PULMONOLOGY PROGRESS NOTE ---
DATE: 10/01/2019 SUBJECTIVE: The patient is awake and alert. She has less work of breathing than yesterday. She reports her cough has diminished. OBJECTIVE: Vital Signs: The patient has been afebrile for the last 24 hours. Blood pressure 141/73, heart rate 66, respiratory rate 20, oxygen saturation 98% on 4 L per nasal cannula. HEENT: Pupils are equal and reactive. Oropharynx appears clear. Neck: Supple. Chest: Crackles in the lung bases. Cardiac: S1-S2. Abdomen: Soft. Extremities: Trace to 1+ edema, right greater than left ankle. LABORATORY AND DIAGNOSTIC DATA: Chest x-ray had significant improvement compared to two days ago, with basilar infiltrates persisting. White blood count 7.52, hemoglobin 8.2, platelet count 350,000. IMPRESSION: An 84-year-old with: 1. Acute hypoxemic respiratory failure. 2. Pulmonary edema and pleural effusions. 3. Possible pneumonia. 4. Pulmonary hypertension. 5. Mild left ventricular dysfunction with [id number] aortic stenosis. PLAN: 1. Continue b.i.d. Lasix as per Dr. Navarro. 2. Continue antibiotics. 3. Followup chest x-ray in 2 to 3 days. cc: Neil Gallegos MD
[2019-10-02] MEDS: DUONEB (A & A) INH SCH ×6 (03:50→23:22)
[2019-10-02] MEDS: LASIX IV SCH ×2 (05:39→18:36)
[2019-10-02 06:15] LABS: BASO# 0.06 X1000 (0.0-0.2); BASO% 0.9 % (0.0-0.8); EOS% 10.4 % (0.0-10.0); HEMATOCRIT 27.8 % (37.0-47.0); HEMOGLOBIN 8.2 g/dL (12.0-16.0); IMM GRAN# 0.02 X1000 (0.0-0.04); IMM GRAN% 0.3 % (0.0-0.5); LYMPH# 1.83 X1000 (1.2-3.4); LYMPH% 27.2 % (20.5-51.1); MCH 23.6 PG (27-31); MCHC 29.5 g/dL (33-37); MCV 80.1 FL (81-99); MONO# 0.51 X1000 (0.11-0.59); MONO% 7.6 % (1.7-9.3); MPV 10.4 FL (7.4-10.4); NEUT% 53.6 % (42.2-75.2); PLT 328 X1000 (130-400); RBC 3.47 XMIL (4.2-5.4); RDW 18.3 % (11.5-14.5); WBC 6.72 X1000 (4.8-10.8)
[2019-10-02 06:18] LABS: CALCIUM 8.7 mg/dL (8.8-10.2); CREATININE 1.2 mg/dL (0.5-0.9); MAGNESIUM 1.9 mg/dL (1.5-2.7); POTASSIUM 3.6 mmol/L (3.5-5.1)
[2019-10-02] MEDS: HUMALOG SUBQ SCH ×4 (06:28→21:53)
[2019-10-02] MEDS: MUCOMYST 20% INH SCH ×2 (07:51→21:07)
[2019-10-02] MEDS: MERREM 2 GM in NS 100 ML IV SCH ×3 (08:58→23:42)
[2019-10-02] MEDS: ZYVOX PO SCH ×2 (08:58→21:50)
[2019-10-02] MEDS: COREG PO SCH ×2 (08:58→21:50)
[2019-10-02] MEDS: CORDARONE PO SCH (08:59)
[2019-10-02] MEDS: PRILOSEC PO SCH (08:59)
[2019-10-02] MEDS: SYNTHROID PO SCH (08:59)
[2019-10-02] MEDS: SINGULAIR PO SCH (08:59)
[2019-10-02] MEDS: KLOR-CON PO SCH (08:59)
[2019-10-02] MEDS: NORVASC PO SCH (08:59)
--- NOTE | 2019-10-02 09:42 | INFECTIOUS DISEASE PROGRESS NO ---
DATE: 10/02/2019 PRESENT ILLNESS: The patient has a bilateral pneumonia which has improved significantly. She does not have an immunoglobulin deficiency. MEDICATIONS: This is day 3 of treatment with Zyvox and meropenem. PHYSICAL EXAMINATION: Vital Signs: Temperature is 98.1 degrees, pulse 70, respirations 17, blood pressure 149/71. General: This is a chronically ill-appearing elderly female she is in no acute distress. Head/eyes/ears/nose/throat: She can hear my spoken words and see near objects. She does not have any white patches in her mouth. Neck: No pain with movement. Lungs: Clear to auscultation. Cardiovascular: Heart rate is regular. Abdomen: Soft and nontender. Extremities: The patient has bilateral leg edema but no erythema. Neurologic: The patient is alert. She can move her extremities. She does not have a tremor. LAB AND X-RAY: Chest x-ray shows much improvement. The CBC shows a white count of 6720, hemoglobin is 8.2, and platelet count is 328,000 creatinine is 1.2. GFR is 52. Procalcitonin is less than 0.1 which translates into very unlikely having pneumonia, although I do think the patient did have pneumonia. ASSESSMENT AND PLAN: Patient has bilateral pneumonia which is clearing well. I have discussed with the patient and with Dr. Navarro further treatment. We agree to have the patient go home on Omnicef 300 mg p.o. every 12 hours for 10 days. Some of the side effects of the antibiotic including rash and diarrhea have been explained to the patient who agrees with treatment. I have requested that the patient come to my office in 2 weeks at which time she will be examined and a repeat chest x-ray will be ordered. COMORBIDITIES: The patient has diabetes and cancer. cc: Anderson Mishra MD
--- NOTE | 2019-10-02 14:20 | PROGRESS NOTE ---
DATE: 10/02/2019 SUBJECTIVE: The patient has no major complaints. OBJECTIVE: Vital signs: Blood pressure 131/68, heart rate 66, respiratory rate 16, temperature 97.8 degrees, 100% on 4 L. Cardiovascular: Regular rate and rhythm. Pulmonary: Bilateral breath sounds. Clear to auscultation. GI: Soft, nontender, nondistended. Bowel sounds are positive. LABORATORY DATA: White count is 6, hemoglobin and hematocrit 8 and 27, platelets 328,000. Creatinine 1.2. PROBLEM LIST: 1. Pneumonia. Although the procalcitonin is negative, I think Dr. Mishra's converted her to Omnicef. 2. Volume overload with mild congestive heart failure exacerbation, but she still has significant pulmonary edema. Discussing with Dr. Gallegos. It is possible she may have had TRALI associated with her transfusion, but that has all improved. We will repeat chest x-ray tomorrow. Evaluate for home O2. Anticipate discharge the next 1 to 2 days. I think she is stable for the floor. cc: Kerwin Navarro MD
[2019-10-02] MEDS: CRESTOR PO SCH (21:50)
[2019-10-02] MEDS: TUSSIONEX LIQUID PO PRN (21:52)
--- NOTE | 2019-10-02 22:01 | PULMONOLOGY PROGRESS NOTE ---
DATE: 10/02/2019 SUBJECTIVE: The patient is awake, alert, and conversant. She does have a cough with some yellow sputum. Clinically, she feels much better. OBJECTIVE: Vital Signs: The patient has been afebrile for the last 24 hours. Blood pressure 136/64, heart rate 66, respiratory rate 22, oxygen saturation 100% on 3 L per nasal cannula. HEENT: Pupils are equal and reactive. Oropharynx appears clear. Neck: Supple. Chest: Reveals good air entry bilaterally with crackles in the lung bases. Cardiac: S1, S2. Abdomen: Soft. Extremities: Without edema. IMPRESSION: An 84-year-old with: 1. Hypoxemic respiratory failure. 2. Pulmonary edema with pleural effusions. 3. Possible/probable pneumonia, component of pneumonia/lung injury. She does have mildly purulent secretions. 4. Pulmonary hypertension. 5. Left ventricular dysfunction with mild to moderate aortic stenosis. PLAN: 1. Continue current Lasix dosing per Dr. Navarro. 2. Agree with antibiotic plans as per Infectious Disease. She is to be initiated on Omnicef at the time of discharge. 3. Anticipate chest x-ray tomorrow. If she continues to improve, she should be a candidate for discharge. cc: Neil Gallegos MD
[2019-10-03] MEDS: DUONEB (A & A) INH SCH ×6 (03:46→22:54)
[2019-10-03] MEDS: LASIX IV SCH ×2 (06:09→18:29)
[2019-10-03 07:41] LABS: BASO# 0.08 X1000 (0.0-0.2); BASO% 1.2 % (0.0-0.8); EOS# 0.88 X1000 (0.0-0.7); HEMATOCRIT 29.2 % (37.0-47.0); HEMOGLOBIN 8.6 g/dL (12.0-16.0); LYMPH# 2.03 X1000 (1.2-3.4); LYMPH% 29.9 % (20.5-51.1); MCH 23.8 PG (27-31); MCHC 29.5 g/dL (33-37); MCV 80.9 FL (81-99); MONO# 0.51 X1000 (0.11-0.59); MONO% 7.5 % (1.7-9.3); MPV 10.4 FL (7.4-10.4); NEUT# 3.29 X1000 (1.4-6.5); NEUT% 48.4 % (42.2-75.2); PLT 335 X1000 (130-400); RBC 3.61 XMIL (4.2-5.4); RDW 18.5 % (11.5-14.5); WBC 6.79 X1000 (4.8-10.8)
[2019-10-03 07:43] LABS: CALCIUM 8.7 mg/dL (8.8-10.2); CREATININE 1.2 mg/dL (0.5-0.9); POTASSIUM 3.5 mmol/L (3.5-5.1)
--- NOTE | 2019-10-03 08:07 | Diag Imaging Result Doc PS360 ---
CHEST-2 VIEWS - 10/03/2019 INDICATION: hypoxia COMPARISON: 10/01/2019 FINDINGS: Stable cardiomegaly and pulmonary vascular congestion. Stable hazy interstitial infiltrates/pulmonary edema diffusely and bilaterally. Stable small bilateral pleural effusions. IMPRESSION: Congestive heart failure. No change from prior. Electronically signed by Antony Casas 10/03/2019 8:05 AM
[2019-10-03] MEDS: MUCOMYST 20% INH SCH ×2 (08:10→20:02)
[2019-10-03] MEDS: MERREM 2 GM in NS 100 ML IV SCH ×2 (09:27→18:29)
[2019-10-03] MEDS: SINGULAIR PO SCH (09:27)
[2019-10-03] MEDS: ZYVOX PO SCH ×2 (09:27→21:40)
[2019-10-03] MEDS: PRILOSEC PO SCH (09:27)
[2019-10-03] MEDS: SYNTHROID PO SCH (09:27)
[2019-10-03] MEDS: NORVASC PO SCH (09:28)
[2019-10-03] MEDS: KLOR-CON PO SCH (09:28)
[2019-10-03] MEDS: CORDARONE PO SCH (09:28)
[2019-10-03] MEDS: COREG PO SCH ×2 (09:28→21:40)
[2019-10-03] MEDS: HUMALOG SUBQ SCH ×3 (13:57→21:49)
--- NOTE | 2019-10-03 16:10 | INFECTIOUS DISEASE PROGRESS NO ---
DATE: 10/03/2019 PRESENT ILLNESS: Ms. Bruce is being treated for bilateral pneumonia. She also has a significant amount of pulmonary edema. MEDICATIONS: She is on day 4 of Zyvox 600 mg by mouth every 12 hours and meropenem 2 g IV every 8 hours. PHYSICAL EXAMINATION: Vital Signs: Temperature is 97.6 degrees, pulse rate 62, respiratory rate 16, blood pressure 146/65. O2 saturations 97% on 2 L nasal cannula. General: This is a chronically ill-appearing, elderly female. She is sitting up in bed, currently in no acute distress. HEENT: Atraumatic, normocephalic. Oral mucous membranes are pink and moist. Conjunctivae are pale. Neck: Supple. Trachea is midline. Cardiovascular: Heart rate and rhythm are regular. Normal sinus rhythm on the monitor. Respiratory: Lung sounds are clear in the upper lobes with crackles noted to the mid and bases bilaterally. No significant work of breathing is noted. Abdomen: Soft, round, and nontender. Bowel sounds are active. Neurologic: She is awake, alert, oriented, and able to move around independently. LABORATORY AND X-RAY: Today her white count is 6.79, hemoglobin 8.6, platelet count 335,000. Creatinine is 1.2 with GFR 52. Chest x-ray today showed congestive heart failure, with stable, hazy interstitial infiltrates and pulmonary edema bilaterally. ASSESSMENT AND PLAN: Ms. Bruce is being treated for bilateral pneumonia, which is improving. She is receiving Zyvox and meropenem, which we will continue at this time. When she is ready to be discharged, there is a prescription for Omnicef 300 mg by mouth every 12 hours for 10 days and we will plan to see her back in our office in 2 weeks, at which time we will recheck a check her chest x-ray. These plans have been discussed with and recommended by Dr. Mishra. COMORBIDITIES: For Ms. Bruce include that she is elderly with diabetes mellitus, stage 1 chronic kidney disease, anemia of chronic disease, and congestive heart failure. Dictated by GIRISH Jennings for Anderson Mishra MD cc: Anderson Mishra MD [facility]
--- NOTE | 2019-10-03 18:37 | PROGRESS NOTE ---
DATE: 10/03/2019 SUBJECTIVE: Patient has no major complaints. OBJECTIVE: Blood pressure 146/65, heart rate 63, respiratory rate of 16, temperature 97.6 degrees.Cardiovascular: Regular rate and rhythm. Pulmonary: Bilateral breath sounds. Clear to auscultation. Gastrointestinal: Soft, nontender, nondistended. Bowel sounds are positive. LABORATORY DATA: White count 6, hemoglobin and hematocrit 8 and 29, platelets were 335,000. Basic, creatinine of 1.2. PROBLEM LIST: 1. Pneumonia. The patient is on Omnicef and stable. 2. Congestive heart failure exacerbation, pulmonary edema. We will continue diuretics. She seems to be doing better. I think she will need home oxygen. However, family has switched gears and now they want to look at rehab, but she ambulated 350 feet while maintaining saturations above 90%. I do not know if she will qualify. I have not seen that before. We will see how she does tomorrow, but if she is doing that well with physical therapy, I do not think she is going to need inpatient rehab. On her PT note from the , she walked 350 feet, that was today. Yesterday, she walked 280 feet, so I do not think she is going to need inpatient or meet criteria, but we will discuss with Social Work. cc: Kerwin Navarro MD
[2019-10-03] MEDS: CRESTOR PO SCH (21:40)
[2019-10-04] MEDS: MERREM 2 GM in NS 100 ML IV SCH ×2 (02:36→10:03)
[2019-10-04] MEDS: DUONEB (A & A) INH SCH ×5 (03:40→19:59)
--- NOTE | 2019-10-04 04:07 | PULMONOLOGY PROGRESS NOTE ---
DATE: 10/03/2019 SUBJECTIVE: The patient is awake, alert and conversant. She reports she had a good day today. She continues to have a cough, but sputum production has decreased. She has been working with physical therapy and she did walk 300 feet today. OBJECTIVE: The patient has been afebrile for the last 24 hours. HEENT: Pupils are equal and reactive. Oropharynx appears clear. Neck is supple. Chest reveals crackles in the lung bases. Cardiac exam: S1, S2. Abdomen is soft. Extremities are without edema. DIAGNOSTIC DATA: Chest x-ray reveals cardiomegaly with vascular congestion, mild basilar infiltrates and small effusions, without change from 10/01/2019. IMPRESSION: An 84-year-old with: 1. Hypoxemic respiratory failure. 2. Pulmonary edema with pleural effusions. 3. Pneumonia with continued radiographic improvement. 4. Pulmonary hypertension. PLAN: 1.Continue diuretics. 2. Anticipate the use of Omnicef at the time of discharge. 3. Anticipate discharge home soon. She is currently being evaluated for possible inpatient rehabilitation, but she may not qualify as outlined by Dr. Navarro. cc: Neil Gallegos MD [facility]
[2019-10-04] MEDS: LASIX IV SCH (06:22)
[2019-10-04] MEDS: HUMALOG SUBQ SCH ×3 (07:43→17:54)
[2019-10-04] MEDS: MUCOMYST 20% INH SCH ×2 (07:45→19:59)
[2019-10-04] MEDS: PRILOSEC PO SCH (08:23)
[2019-10-04] MEDS: CORDARONE PO SCH (08:23)
[2019-10-04] MEDS: ZYVOX PO SCH (08:23)
[2019-10-04] MEDS: SYNTHROID PO SCH (08:23)
[2019-10-04] MEDS: COREG PO SCH (08:23)
[2019-10-04] MEDS: SINGULAIR PO SCH (08:23)
[2019-10-04] MEDS: NORVASC PO SCH (08:23)
[2019-10-04] MEDS: KLOR-CON PO SCH (08:23)
[2019-10-04 15:08] VITALS: BP 129/70
--- NOTE | 2019-10-04 15:36 | DISCHARGE SUMMARY ---
ADMISSION DATE: 09/18/2019 DISCHARGE DATE: 10/04/2019 ADMISSION DIAGNOSES: 1. Acute congestive heart failure. 2. Chronic kidney disease, stage 1. 3. Diabetes mellitus type 2. 4. History of mitral regurgitation. DISCHARGE DIAGNOSES: 1. Pneumonia. 2. Acute congestive heart failure exacerbation with pulmonary edema, systolic failure. CONSULTATIONS: Dr. Mishra and Dr. Gallegos. SURGERIES/PROCEDURES: None. HOSPITAL COURSE: On 09/18/2019, Ms. Liyah Bruce, an 84-year-old female with a past medical history of congestive heart failure, presented to the emergency department with complaints of palpitations and shortness of breath. Apparently, she has a history of atrial fibrillation and had cardioversion 1 week prior to presentation. The shortness of breath was on and off, had more swelling in her lower extremities, worsening orthopnea, and just the shortness of breath specifically with minimal exertion. There was a cough with productive clear blood- tinged sputum. ProBNP was elevated. X-ray showed pulmonary edema, so she was admitted for further treatment of acute systolic congestive heart failure. Pulmonology was consulted and also Dr. Mishra was consulted. She had developed a bilateral pneumonia, which was present on admission. It was found on CAT scan that was performed the day after admission, and so she also had pulmonary edema mixed with the bilateral pneumonia. She was placed on Lasix IV twice a day, was started on Zosyn. Vancomycin was also added and she was initially transferred to the ICU for further treatment and evaluation. The sputum did not grow out anything in particular. She had influenza screen that was negative for A and B. At some point, she was having loose stools. Clostridium difficile was ordered on the and it was negative. Blood in the stool was ordered and it was positive. She was placed on a proton pump inhibitor. It just seemed to have taken her a good while to eventually improve on her respiratory status. She was having to use BiPAP to help with her breathing. By the , she was transitioned to PVC unit, and then by that time she had a BiPAP at night p.r.n. oxygen. She kept the nebulizers and the antibiotics daily. Chest x-ray ion the showed right upper and lower lobe pneumonia. By about the there was improvement. She did have some issues where her kidney function had worsened a little bit. Lasix had to be held for about a day or maybe even 2 days, and the antibiotics on the were changed to decrease risk of worsening renal function. The vancomycin was stopped. She was started on Teflaro and they also discontinued the amiodarone thinking that it was worsening her respiratory status; actually the did not stop the amiodarone. She did start to improve without stopping it, and Lasix doses were as needed. Chest x-ray on the showed slightly worsening of the right lower lobe pneumonia. By the , her hemoglobin dropped down to 6.9, so a unit of blood was ordered, but was continued on the home Eliquis. She did get a unit of blood and blood count had dropped. They did a stool; it was positive, and on the chest x-ray worsened again. Echo on the showed EF of being 40 to 45 percent. It was the when Dr. Mishra was consulted for any further recommendations on the patient's pneumonia that seemed to be getting worse. So, on the , Dr. Mishra saw the patient. He discontinued the Teflaro and Zosyn and put the patient on Zyvox and meropenem. By the there was a significant improvement in the extensive bilateral infiltrates and edema, and on the she was able to be moved to the medical floor. It was determined that the antibiotics that she would go home on would most likely be Omnicef and, by the , it looked like she was improving well enough for possible discharge home. On the , chest x-ray with not much change and was being evaluated for inpatient rehab. DISCHARGE VITAL SIGNS: Temperature 97.7 degrees, heart rate 63, respiratory rate 16, blood pressure 128/59, O2 saturation 100% on 2 L nasal cannula. DISCHARGE LAB DATA: White blood cells 6000, hemoglobin 8.6, hematocrit 29.2, platelet count 335. Sodium 141, potassium 3.5, BUN 15, creatinine is 1.2, glucose 95, calcium 8.7. MICROBIOLOGY: Stool was positive for occult blood. Clostridium difficile negative. Sputum culture negative. Influenza screening negative. IMAGING: On the : Chest x-ray with congestive heart failure. On the : Chest CT with improved pleural effusions, worsening pneumonia versus pulmonary edema in the upper lobes, particularly the right, bilateral lower lobe atelectasis versus pneumonia. On the : Chest x- ray with worsening pulmonary edema plus or minus pneumonia. On the : Chest x-ray with right upper and lower lobe pneumonia. On the : Chest x-ray with slight improvement in the dense bilateral infiltrates. On the : Chest x-ray with pronounced improvement in the bilateral infiltrates suggesting pulmonary edema. On the : Chest x-ray with slight worsening in the right lower lobe. On the : Chest x-ray with significant worsening in the diffuse bilateral infiltrates with pulmonary edema. On the : Chest x-ray with significant improvement in the extensive bilateral infiltrates and edema. On the : Chest x-ray with congestive heart failure. No change from prior. On the : Echocardiogram with ejection fraction 40 to 45 percent. Pulmonary hypertension, mild LVH. EKG on the : Sinus rhythm, rate 70. EKG on the : Normal sinus rhythm, rate 83. DISCHARGE MEDICATIONS: 1. Lasix 40 mg p.o. daily. 2. Omnicef 300 mg p.o. every 12 hours x10 days. 3. Albuterol 2 puffs four times a day p.r.n. 4. Singulair 10 mg p.o. daily. 5. Fluvastatin calcium 5 mg every other day. 6. Potassium chloride 10 mEq p.o. daily. 7. Multivitamin 1 tablet p.o. every other day. 8. MiraLAX 17 g p.o. daily p.r.n. 9. Levothyroxine 50 mcg p.o. daily. 10. Metformin 500 mg p.o. twice daily. 11. Fish oil 1000 mg p.o. daily. 12. Eliquis 5 mg p.o. twice daily. 13. Amiodarone 200 mg p.o. daily. 14. Clonidine 0.2 mg p.o. nightly. 15. Coreg 25 mg p.o. twice daily. 16. Benadryl 25 mg p.o. daily p.r.n. 17. Amlodipine besylate 10 mg p.o. nightly. PHYSICIAN FOLLOWUPS: Dr. Mishra and Dr. Leone. DISCHARGE DIET: Heart healthy, low-sodium, fluid restriction of 1500 mL per day. DISCHARGE ACTIVITY: As tolerated. Take care to prevent falls. DISCHARGE INSTRUCTIONS: Four ross things you may be responsible for at home to successfully manage your conditions: 1. Take your medications exactly as prescribed by your physician. 2. Weigh daily and keep a record to take to your MD appointments. 3. Stick to your low-salt diet and fluid restrictions. 4. Keep all your follow-up appointments. Notify MD for any of the following: Have a harder time breathing than normal; having new shortness of breath while resting; persistent cough; weight gain of greater than 3 pounds in a day or 5 pounds in a week; swelling to the lower extremities; fever greater than 101; shortness of breath or chest pain. Refer to the congestive heart failure booklet you were given for more detailed information. If your condition changes, contact physician and/or return to the emergency department. Changes may include, but are not limited to shortness of breath, increased fatigue, excessive bleeding, unexplained weight loss or gain, unmanageable pain, signs or symptoms of infection. Obtain a list of physicians who are taking new patients if needed. DISCHARGE DISPOSITION: [facility]. Dictated by GIRISH Florez for Kerwin Navarro MD cc: GIRISH Florez MD
--- NOTE | 2019-10-04 15:57 | INFECTIOUS DISEASE PROGRESS NO ---
DATE: 10/04/2019 PRESENT ILLNESS: The patient is being treated for a bilateral pneumonia. MEDICATIONS: This is day 5 of treatment with the combination of Zyvox and meropenem. PHYSICAL EXAMINATION: Vital Signs: Temperature is 97.7 degrees, pulse 63, respirations 16, blood pressure 128/59. General: This is a chronically ill-appearing, elderly female. She is in no acute distress. Head/eyes/ears/nose/throat: She can hear my spoken words and see near objects. She does not have any white patches on her tongue. Neck: No pain with movement. Lungs: The lungs are clear. Cardiovascular: Heart rate is regular. Abdomen: Soft and nontender. Extremities: Patient has bilateral leg edema but no erythema. Neurologic: The patient is alert. She can move her extremities. There is no tremor. LAB AND X-RAY: There is no new lab or radiographic study from today. ASSESSMENT AND PLAN: While the patient is in the hospital, I am going to continue Zyvox and meropenem. When she goes home, there is a prescription for Omnicef 300 mg p.o. every 12 hours for 10 days. Also, we will see the patient back in our office in 2 weeks for repeat physical exam and chest x-ray. COMORBIDITIES: The patient is elderly and she has diabetes mellitus, chronic kidney disease, anemia of chronic disease, and congestive heart failure. cc: Anderson Mishra MD
--- NOTE | 2019-10-04 18:12 | PROVIDER PROGRESS NOTE ---
Progress Note Dr. Lowery Progress Note/Pulmonary and or critical care We appreciated progress of care, Complications, change in diagnosis, and instructions to patient. Subjective: We note the level of consciousness, bed (chair) position, family presence (if any), level of lethargy, feeling of symptoms, and changes from baseline condition/symptom. The patient is lying in bed with no acute distress noted. She is on NC 2L and tolerates well. She states she is feeling well, but she still has some cough wit h yellow sputum at times and SOB with activities. She is waiting for being discharged to rehab at this time. Objective: Vital Signs: We reviewed EMR current values for Pulse rate, Blood pressure, Pulse rate, respiratory rate and Pulse oximetry. Also noted other values and trends if present (e.g. I/O, CVP). T 97.7, NC 63, RR 16, BP 128/59 and SaO2 99% on NC 2 L. Physical Examination: General: Chronically ill appearing. Lying in bed with no acute distress noted. HEENT: Atraumatic. Normocephalic. Trachea midline. Mucosa pink and moist. Chest: Even and unlabored. Symmetrical excursion. Auscultation reveals mild crackles bibasilarly. CVS: Regular rate and rhythm with S1 and S2 appreciated. Abdomen: Obese. Non-tender. Soft. Normoactive bowel sounds in all 4 quadrants. Extremities: Trace pedal edema. No cyanosis. No clubbing. Neuro: A/O x3. Speech fluent. Follow commands. Labs and Radiology: Reviewed available labs and radiology values available at time of EMR review. Laboratory Results 10/03/19 10/03/19 10/04/19 21:14 21:46 05:57 POC Glucose 323 H D 192 H 93 D 10/04/19 10/04/19 10:40 15:58 POC Glucose 127 H 135 H Assessment: Acute hypoxemic respiratory failure. Possible/probable bilateral pneumonia. Pulmonary hypertension. Left ventricular dysfunction with mild to moderate aortic stenosis. Pulmonary edema with pleural effusions. Plan: Continue current treatment and supportive care per admitting and other teams on the case. Antibiotics: Zyvox and Meropenem per Dr. Mishra. Bronchodilators. Mucomyst. Diuresis. Appropriate DVT and GI prophylaxis. Discharge planning per Admitting MD. Input was appreciated from Admitting MD and other teams on the case.
--- NOTE | 2019-10-04 21:37 | DISCHARGE SUMMARY ---
ADMISSION DATE: 09/18/2019 DISCHARGE DATE: 10/04/2019 SUBJECTIVE: Patient is doing well. No major complaints. OBJECTIVE: She is afebrile. No white count. She is still having a little bit of productive sputum, but she is getting antibiotics. We will continue to follow and have her follow up in 2 weeks. I am not sure she will be out of rehab but she will probably be out of rehab. In any case, I think she is stable. There was some discussion with the family because they were not sure she was ready for discharge but we went over the findings of Dr. Mishra'. Procalcitonin level is negative. The chest x-ray is improved. Clinically, she is afebrile. She is hypoxic but improved since admission down from 4 L to 2 L. I think she will need some oxygen. Additionally, she really has not had a change in her status. Her white counts have been normal. We did not check labs today because it was the day of discharge, and I did not see that we absolutely need to do that. They seemed comfortable with this and she will go to rehab today. See full discharge summary per Mirta Ronquillo. 35 minute discharge. cc: Kerwin Navarro MD
== END 2019-10-04 20:23 | DRG 291 ==
LOC: ED 10:48 → EDIPHOLD 21:57 → SUATTDRO 21:57 → 3N 22:08 → ICU 09-20 08:43 → 2N 09-21 15:39 → 4N 10-02 15:59
PROVIDERS: ATTEND Internal Medicine

== ENCOUNTER 2019-11-07 07:42 | Inpatient (IN) ==
[2019-11-07] MEDS ORDERED: ASPIRIN PO ONE (08:00)
[2019-11-07] MEDS ORDERED: NITROGLYCERIN TOP ONE (08:01)
[2019-11-07] MEDS ORDERED: LASIX IV ONE (08:01)
[2019-11-07] MEDS ORDERED: NS 1,000 ML IV ONE (08:01)
--- NOTE | 2019-11-07 08:21 | Diag Imaging Result Doc PS360 ---
EXAM: CHEST-PORTABLE 11/07/2019 HISTORY: sob, hx of CHF TECHNIQUE: AP portable at 0808 COMMENT: There are bilateral pleural effusions. There is hazy interstitial opacity throughout both lungs consistent with pulmonary edema. The denser opacification in the lung bases present on the 10/03/2019 exam have diminished. There is also some decrease in the amount of pleural fluid. IMPRESSION: Pulmonary edema. Pleural effusions. Cardiomegaly. Electronically signed by Jonathan Vazquez 11/07/2019 8:19 AM
--- NOTE | 2019-11-07 08:40 | PROVIDER DOCUMENTATION ---
HPI-Respiratory General - General Chief Complaint: Shortness of Breath Stated Complaint: SOB,CHEST TIGHT,COUGHING,GORDON Time Seen by Provider: 11/07/19 07:54 Source: patient Allergies/Adverse Reactions: Patient Allergies Allergy/AdvReac Type Severity Reaction Status Date / Time nut - unspecified Allergy ANAPHYLAXIS Verified 09/11/19 11:14 codeine AdvReac NAUSEA/VOMI Verified 09/11/19 11:14 TING Home Medications: Home Medication List Medication Instructions Recorded Confirmed Last Taken Type Metformin [Glucophage] 500 mg PO BID 09/17/15 09/18/19 09/11/19 21:00 History Amlodipine Besylate 10 mg PO QPM 06/01/17 09/18/19 09/11/19 21:00 History Carvedilol 25 mg PO BID 06/01/17 09/18/19 09/12/19 07:30 History Potassium Chloride 1 tab PO DAILY 06/01/17 09/18/19 09/12/19 07:30 History Rosuvastatin Calcium 1 tab PO EVERY OTHER DAY 06/01/17 09/18/19 09/11/19 22:00 History Amiodarone [Cordarone] 200 mg PO DAILY 07/30/19 09/18/19 09/12/19 07:30 History Apixaban [Eliquis] 5 mg PO BID 07/30/19 09/18/19 09/12/19 07:30 History Montelukast Sodium [Singulair] 10 mg PO DAILY 07/30/19 09/18/19 09/12/19 07:30 History Albuterol Sulfate Inhaler 2 puff INH 4XDAY PRN 09/11/19 09/18/19 09/11/19 12:00 History [Ventolin Hfa] Diphenhydramine HCl [Benadryl 25 mg PO DAILY PRN 09/11/19 09/18/19 Unknown History Allergy] Levothyroxine Sodium 50 mcg PO DAILY 09/11/19 09/18/19 09/12/19 07:30 History Multivitamin with Minerals [One 1 tab PO EVERY OTHER DAY 09/11/19 09/18/19 09/11/19 07:30 History Daily Complete] [facility] Fatty Acids/Fish Oil [Fish 1,000 mg PO DAILY 09/11/19 09/18/19 09/11/19 07:30 History Oil 1,000 mg Capsule] Polyethylene Glycol 3350 [Miralax] 1 dose PO DAILY PRN 09/11/19 09/18/19 Unknown History Clonidine [Catapres] 0.2 mg PO QPM 09/18/19 09/18/19 Unknown History CefDINIR [Omnicef] 300 mg PO Q12H #20 cap 10/02/19 Unknown Rx Furosemide [Lasix] 40 mg PO DAILY #30 10/04/19 09/18/19 09/12/19 07:30 Rx - History of Present Illness-Resp Nature of Presenting Problem: C/O increasing SOB, orthopnea, and midsternal CP for about the last 24 hours. Also has cough productive of clear/frothy sputum. Denies Fever/chills, nausea, vomiting. States felt like this last month when was admitted for 16 days and had to go to the ICU for double pneumonia and CHF. Also notes some lower extremity edema. Her CP is constant, waxes and wanes, and is worth when lies daown and exerts herself. Quality of Pain: reports: aching, fullness, sharp Severity in ED: reports: moderate Onset/Duration: reports: gradual, 24 hours ago Timing: reports: still present, constant, getting worse Context: reports: recent URI Exposure: reports: unknown cause Cough Quality/Degree: reports: mild, productive cough. denies: blood streaked sputum Episode Frequency: occasional episodes Current Respiratory Medication Therapy: Initiated none Modifying Factors: improves with: sitting upright. worse with: exertion, coughing, lying down Associated Symptoms: reports: chest pain/soreness, shortness of breath, short of breath Similar Symptoms Previously?: Yes Recently seen or treated by another doctor?: Yes (last month) Review of Systems - Adult - REVIEW OF SYSTEMS - ADULT Constitutional: reports: no symptoms reported Eyes: reports: no symptoms reported Ears, Nose, Mouth & Throat: reports: no symptoms reported Cardiovascular: reports: no symptoms reported Respiratory: reports: no symptoms reported Gastrointestinal: reports: no symptoms reported Genitourinary: reports: no symptoms reported Musculoskeletal: reports: no symptoms reported Integumentary: reports: no symptoms reported Neurological: reports: no symptoms reported Psychiatric: reports: no symptoms reported Endocrine: reports: no symptoms reported Hematologic/Lymphatic: reports: no symptoms reported Allergic/Immunologic: reports: no symptoms reported All Other Systems: Reviewed and Negative Past History - Adult - PAST MEDICAL HISTORY-ADULT Review of Records: reports: Old Records Reviewed (last admission last month), Nursing Assessment Review, Medications Reviewed, Social history reviewed & non- contributory. Major Childhood Illnesses: reports: denies history Cardiovascular: reports: CHF, HTN, other ("rare anemia") Respiratory: reports: sleep apnea (CPAP) Gastrointestinal: reports: GERD Obstetrical/Gynecological: reports: denies history Genitourinary: reports: denies history Musculoskeletal: reports: denies history Neurological: reports: denies history Endocrine/Immune: reports: Diabetes Other Conditions: reports: other cancer (skin) - PRIOR SURGERIES/PROCEDURES Surgical/Procedure History: reports: hysterectomy, back/neck - IMMUNIZATION STATUS Childhood Immunizations: See Nurse Assessment Flu Vaccine: See Nurse Assessment - FAMILY HISTORY Family History: reviewed, not pertinent - SOCIAL HISTORY Smoking: non-smoker Substance Use: none/never Alcohol Use Frequency: never Living Situation: family Physical Exam-General - PHYSICAL EXAM-ADULT Initial Vital Signs Reviewed: Yes (VSSAF) - CONSTITUTIONAL General Appearance: appears well, alert, no apparent distress - EYES Eyes: PERRL/EOMI, pink conjunctivae - HEAD, EARS, NOSE, MOUTH & THROAT HENMT: normocephalic/atraumatic, moist mucous membranes, normal ENT inspection, other (some periorbital edema present) - NECK Neck: full range of motion, supple, normal inspection - RESPIRATORY Respiratory: chest non-tender, no pleuratic chest pain, no respiratory distress, no accessory muscle use, decreased breath sounds, dull on percussion - CARDIOVASCULAR Cardiovascular: normal peripheral pulses, regular rate, rhythm, no edema, no JVD , systolic murmur (at apex and left upper chest), gallop/S3 - GASTROINTESTINAL (ABDOMEN) Abdominal Exam: normal bowel sounds, non tender, soft, no organomegaly, no puls atile mass - LYMPHATIC Lymphatic: no adenopathy - MUSCULOSKELETAL Back Exam: normal inspection, no vertebral tenderness. negative: decreased range of motion Extremity: normal range of motion, non-tender, normal gait, no calf tenderness, normal capillary refill, pedal edema (1-2 + bilateral) - SKIN Integumentary: normal color, normal turgor, warm/dry - NEUROLOGIC Neurologic: operator technician II-XII nml as tested, grossly normal, no motor/sensory deficits - PSYCHIATRIC Psych/Mental Status: normal mood/affect, normal thought content, normal thought process, oriented x 3 - HEART Score HEART Score: History: Slightly Suspicious HEART Score: ECG: Non-Specific Repolarization Disturbance/LBBB/PM HEART Score: Age: > or = 65 Years HEART Score: Risk Factors for Atherosclerotic Disease: > or = 3 Risk Factors or History of Atherosclerotic Disease HEART Score: Troponin: < or = Normal Limit Total HEART Score:: 5 Progress - PLAN OF CARE/RESULTS Progress/Plan/Lab Results: Vital Signs - 8 hr 11/07/19 07:49 11/07/19 08:21 11/07/19 08:54 Temperature 97.6 F Pulse Rate 86 78 80 Respiratory Rate 18 23 21 Blood Pressure 165/92 162/80 163/88 O2 Sat by Pulse Oximetry 94 L 89 L 90 L 11/07/19 09:31 11/07/19 10:00 11/07/19 10:30 Temperature Pulse Rate 81 70 67 Respiratory Rate 19 24 24 Blood Pressure 161/97 163/93 161/90 O2 Sat by Pulse Oximetry 94 L 94 L 93 L 11/07/19 08:00 Influenza Screen - Final Nasopharyngeal Laboratory Results - last 24 hr 11/07/19 11/07/19 11/07/19 08:35 08:35 08:35 WBC RBC Hgb Hct MCV MCH MCHC RDW Std Deviation Plt Count MPV Immature Gran % (Auto) Neut % (Auto) Lymph % (Auto) [place] % (Auto) Eos % (Auto) Baso % (Auto) Immature Gran # (Auto) Neut # (Auto) Lymph # (Auto) [place] # (Auto) Eos # (Auto) Baso # (Auto) PT INR PTT (Actin FS) Specimen Type Sample Site pH pCO2 pO2 HCO3 Base Excess Oxyhemoglobin ABG O2 Sat (Calculated) ABG O2 Saturation ABG Carboxyhemoglobin ABG Methemoglobin Vinod Test A-a O2 Difference Total Hemoglobin Lactate Liter Flow Blood Gas Modality FiO2 % Sodium 141 Potassium 3.5 Chloride 102 Carbon Dioxide 24 L Anion Gap 15 BUN 21 Creatinine 1.2 H Estimated GFR/1.73 m2 52 BUN/Creatinine Ratio 18 Glucose 128 H Calculated Osmolality 286 Calcium 8.8 Total Bilirubin 0.60 AST 47 H ALT 56 H Alkaline Phosphatase 64 Creatine Kinase 77 Troponin T High Sens [id number] Pept 94349 H Total Protein 6.8 Albumin 3.5 Globulin 3.3 Albumin/Globulin Ratio 1.1 Plasma Lactate 2.0 Urine Source Urine Color Urine Turbidity Urine pH Ur Specific [place] Urine Protein Ur Glucose (Stick) Ur Ketones (Stick) Urine Blood Urine Nitrite Urine Bilirubin Urobilinogen Dipstick Urine Leukocytes Urine WBC (Auto) Urine RBC (Auto) U Epithel Cells (Auto) Urine Bacteria (Auto) 11/07/19 11/07/19 11/07/19 08:35 08:35 08:35 WBC 8.56 RBC 4.07 L Hgb 9.8 L Hct 31.9 L MCV 78.4 L MCH 24.1 L MCHC 30.7 L RDW Std Deviation 18.7 H Plt Count 261 MPV 11.6 H Immature Gran % (Auto) 0.0 Neut % (Auto) 74.9 Lymph % (Auto) 14.6 L [place] % (Auto) 6.8 Eos % (Auto) 3.2 Baso % (Auto) 0.5 Immature Gran # (Auto) 0.00 Neut # (Auto) 6.42 Lymph # (Auto) 1.25 [place] # (Auto) 0.58 Eos # (Auto) 0.27 Baso # (Auto) 0.04 PT 19.4 H INR 1.61 PTT (Actin FS) 35.0 Specimen Type Sample Site pH pCO2 pO2 HCO3 Base Excess Oxyhemoglobin ABG O2 Sat (Calculated) ABG O2 Saturation ABG Carboxyhemoglobin ABG Methemoglobin Vinod Test A-a O2 Difference Total Hemoglobin Lactate Liter Flow Blood Gas Modality FiO2 % Sodium Potassium Chloride Carbon Dioxide Anion Gap BUN Creatinine Estimated GFR/1.73 m2 BUN/Creatinine Ratio Glucose Calculated Osmolality Calcium Total Bilirubin AST ALT Alkaline Phosphatase Creatine Kinase Troponin T High Sens 31 H [id number] Pept Total Protein Albumin Globulin Albumin/Globulin Ratio Plasma Lactate Urine Source Urine Color Urine Turbidity Urine pH Ur Specific [place] Urine Protein Ur Glucose (Stick) Ur Ketones (Stick) Urine Blood Urine Nitrite Urine Bilirubin Urobilinogen Dipstick Urine Leukocytes Urine WBC (Auto) Urine RBC (Auto) U Epithel Cells (Auto) Urine Bacteria (Auto) 11/07/19 11/07/19 09:20 11:13 WBC RBC Hgb Hct MCV MCH MCHC RDW Std Deviation Plt Count MPV Immature Gran % (Auto) Neut % (Auto) Lymph % (Auto) [place] % (Auto) Eos % (Auto) Baso % (Auto) Immature Gran # (Auto) Neut # (Auto) Lymph # (Auto) [place] # (Auto) Eos # (Auto) Baso # (Auto) PT INR PTT (Actin FS) Specimen Type ARTERIAL Sample Site R BRACHIAL pH 7.48 H pCO2 33 L pO2 55 L HCO3 25.8 Base Excess 1.3 Oxyhemoglobin 89.5 L* ABG O2 Sat (Calculated) 12.5 L ABG O2 Saturation 91.8 L ABG Carboxyhemoglobin 1.70 ABG Methemoglobin 0.8 Vinod Test NO A-a O2 Difference 53.0 Total Hemoglobin 9.9 L Lactate 2.20 Liter Flow 0.0 Blood Gas Modality ROOM AIR FiO2 % 21.0 Sodium Potassium Chloride Carbon Dioxide Anion Gap BUN Creatinine Estimated GFR/1.73 m2 BUN/Creatinine Ratio Glucose Calculated Osmolality Calcium Total Bilirubin AST ALT Alkaline Phosphatase Creatine Kinase Troponin T High Sens [id number]-Eewvhgjxrrd Pept Total Protein Albumin Globulin Albumin/Globulin Ratio Plasma Lactate Urine Source CLEAN CATCH Urine Color STRAW Urine Turbidity CLEAR Urine pH 7.0 Ur Specific [place] 1.007 Urine Protein NEGATIVE Ur Glucose (Stick) NEGATIVE Ur Ketones (Stick) NEGATIVE Urine Blood NEGATIVE Urine Nitrite NEGATIVE Urine Bilirubin NEGATIVE Urobilinogen Dipstick NORMAL Urine Leukocytes NEGATIVE Urine WBC (Auto) <10 Urine RBC (Auto) <10 U Epithel Cells (Auto) <10 Urine Bacteria (Auto) NEGATIVE Orders Category Date Time Status Cardiac Monitoring DIRECTED Care 11/07/19 08:00 Active Oxygen Therapy- ED Nursing DIRECTED Care 11/07/19 08:00 Active Saline Loc NOW Care 11/07/19 08:00 Active CHEST-PORTABLE [RAD] Stat Exams 11/07/19 08:01 Completed ABG [RESP] Routine Lab 11/07/19 09:20 Completed BLOOD CULTURE [BLDCUL] Stat Lab 11/07/19 09:19 Results CBC WITH ELECTRONIC DIFF [HEME] Stat Lab 11/07/19 08:35 Completed CK PROFILE [SP CHEM] Stat Lab 11/07/19 08:35 Completed COMPREHENSIVE METABOLIC PANEL [CHEM] Stat Lab 11/07/19 08:35 Completed INFLUENZA SCREEN A/B Stat Lab 11/07/19 08:00 Completed LACTATE, PLASMA [CHEM] Stat Lab 11/07/19 08:35 Completed PRO B-NATRIURETIC PEPTIDE Stat Lab 11/07/19 08:35 Completed PROTIME WITH INR [COAG] Stat Lab 11/07/19 08:35 Completed PTT [COAG] Stat Lab 11/07/19 08:35 Completed TROPONIN T HIGH SENSITIVITY Stat Lab 11/07/19 08:35 Completed URINALYSIS W/POSS RFLX CULT [URINALYSIS] Stat Lab 11/07/19 11:13 Completed 0.9% Sodium Chloride Inj [Ns] 1,000 ml Med 11/07/19 08:01 Active IV 75 mls/hr Aspirin Med 11/07/19 08:00 Discontinued 325 mg PO NOW ONE Furosemide [Lasix] Med 11/07/19 08:01 Discontinued 80 mg IV NOW ONE Nitroglycerin Med 11/07/19 08:01 Discontinued 0.5 inch TOP NOW ONE CP/SOB/Palp >45 yrs of Age Stat Oth 11/07/19 08:00 Ordered EKG [EKG] Stat Ther 11/07/19 08:00 Draft Result Diagrams: 11/07/19 08:35 11/07/19 08:35 - EKG 1 Time of EKG reading by physician:: 08:42 EKG Read and Signed by:: Michael Mtz EKG Interpretation (*Must complete 3 of following elements*): Abnormal Rate: 77 Rhythm: 1st degree AV block [place]: normal QRS: LVH MO Interval: prolonged ST Wave: non-specific ST changes Comments: prolonged QTc - XRAY 1 XRAY Study: Chest Impression: Abnormal, See EMR Report (Signed EXAM: CHEST-PORTABLE 11/07/2019 HISTORY: sob, hx of CHF TECHNIQUE: AP portable at 0808 COMMENT: There are bilateral pleural effusions. There is hazy interstitial opacity throughout both lungs consistent with pulmonary edema. The denser opacification in the lung bases present on the 10/03/2019 exam have diminished. There is also some decrease in the amount of pleural fluid. IMPRESSION: Pulmonary edema. Pleural effusions. Cardiomegaly. Electronically signed by Jonathan Vazquez 11/07/2019 8:19 AM 11/07/19818 Interpreting Physician: Jonathan Vazquez MD Dictated Date/Time: 11/07/19817 cc: Michael Mtz MD; Ana Leone MD) - CONSULTS/PCP/HOSPITALIST Notification #1 *Consult/PCP/Hospitalist*: GIRISH Zambrano Time Discussed: 11:33 Consult Disposition: Will see in ED, Admit (to [facility]) Departure - Departure Date of Disposition Decision: 11/07/19 Time of Disposition Decision: 11:33 DIAGNOSIS: Pulmonary edema with congestive heart failure with reduced left ventricular function, Chronic atrial fibrillation Disposition: ADMITTED INPATIENT 09 Certified Medical Emergency: Emergent Condition: Stable Referrals and Follow-Ups: Ana Leone MD [Primary Care Provider] - - Critical Care Note This patient required my direct & personal management of CC.: Yes Total Time (mins): 35 Critical Care Statement: This patient required my direct personal management to treat or rule out processes, the absence of which, could potentiallly result in sudden, clinically significant life or limb threatening deterioration. Attestation - Physician/ LAINA Attestation Patient care was provided by Advanced Practice Provider:: No The physician spent face to face time with patient:: Yes Advanced Practice Provider documentation review:: Supervising physician onsite and consulted in the evaluation and care of this patient. The physician did have a face to face encounter with the patient.
--- NOTE | 2019-11-07 08:41 | EKG Report ---
Test Performed on : 11/07/2019 08:40:21 AM Test Reason : sob, cp Blood Pressure : / mmHG Vent. Rate : 077 BPM Atrial Rate : 077 BPM P-R Int : 226 ms QRS Dur : 086 ms QT Int : 498 ms P-R-T Axes : 012 -24 -67 degrees QTc Int : 563 ms Sinus rhythm. with 1st degree AV block. Left ventricular hypertrophy with repolarization abnormality Cannot rule out Septal infarct , age undetermined Prolonged QT Abnormal ECG When compared with ECG of 18-SEP-2019 17:59, (Unconfirmed) [place] interval has increased Inverted T waves have replaced nonspecific T wave abnormality in Lateral leads QT has lengthened Unconfirmed Result
[2019-11-07 09:28] LABS: ALLEN TEST NO; BE 1.3 mmoll (-3.0-3.0); BLOOD TYPE ARTERIAL; HCO3-(ACT) 25.8 mmoll (20.0-26.0); METHB 0.8 % (0.0-1.5); O2(CT) 12.5 mL/dL (15.0-23.0); PCO2(98.6) 33 mmHg (35-45); PO2(98.6) 55 mmHg (60-100); SAMPLE BLOOD; SAO2 91.8 % (95.0-100.0); THB 9.9 g/dL (11.5-17.4); pH(98.6) 7.48 (7.35-7.45)
[2019-11-07 09:28] LABS: ALB/GLOB RATIO 1.1; ALBUMIN 3.5 g/dL (3.5-5.0); CALCIUM 8.8 mg/dL (8.8-10.2); CREATININE 1.2 mg/dL (0.5-0.9); POTASSIUM 3.5 mmol/L (3.5-5.1); TOTAL BILIRUBIN 0.6 mg/dL (0.20-1.00); TOTAL PROTEIN 6.8 g/dL (6.3-8.3)
[2019-11-07 09:30] LABS: MODALITY ROOM AIR; O2HB 89.5 % (95.0-99.0)
[2019-11-07 09:51] LABS: INR 1.61; PROTIME 19.4 Seconds (11.0-16.0)
[2019-11-07 11:00] LABS: BASO# 0.04 X1000 (0.0-0.2); BASO% 0.5 % (0.0-0.8); EOS# 0.27 X1000 (0.0-0.7); EOS% 3.2 % (0.0-10.0); HEMATOCRIT 31.9 % (37.0-47.0); HEMOGLOBIN 9.8 g/dL (12.0-16.0); LYMPH# 1.25 X1000 (1.2-3.4); LYMPH% 14.6 % (20.5-51.1); MCH 24.1 PG (27-31); MCHC 30.7 g/dL (33-37); MCV 78.4 FL (81-99); MONO# 0.58 X1000 (0.11-0.59); MONO% 6.8 % (1.7-9.3); MPV 11.6 FL (7.4-10.4); NEUT# 6.42 X1000 (1.4-6.5); NEUT% 74.9 % (42.2-75.2); PLT 261 X1000 (130-400); RBC 4.07 XMIL (4.2-5.4); RDW 18.7 % (11.5-14.5); WBC 8.56 X1000 (4.8-10.8)
[2019-11-07 11:22] LABS: URINE SOURCE CLEAN CATCH
[2019-11-07 11:28] LABS: BILIRUBIN URINE NEGATIVE (NEGATIVE); BLOOD URINE NEGATIVE (NEGATIVE); COLOR STRAW; GLUCOSE URINE NEGATIVE (NEGATIVE); KETONE URINE NEGATIVE (NEGATIVE); LEUKOCYTES URINE NEGATIVE (NEGATIVE); NITRITE URINE NEGATIVE (NEGATIVE); PROTEIN URINE NEGATIVE (NEGATIVE); SP GRAVITY URINE 1.007; TURBIDITY URINE CLEAR (CLEAR); UROBILINOGEN URINE NORMAL (NORMAL)
[2019-11-07 11:30] LABS: UR EPITHELIAL CELLS <10 /HPF (<10); URINE BACTERIA NEGATIVE /HPF; URINE RBC <10 /HPF (<10); URINE WBC <10 /HPF (<10)
--- NOTE | 2019-11-07 13:45 | HISTORY AND PHYSICAL ---
PRIMARY CARE PROVIDER: Dr. Ana Leone. WINDLASSER: Dr. Marty Chung. HISTORY OF PRESENT ILLNESS: Ms Bruce is an 84-year-old female who carries a past medical history of systolic congestive heart failure, atrial fibrillation/flutter, aortic insufficiency, mitral regurgitation, hyperlipidemia, type 2 diabetes, chronic kidney disease, and anemia of chronic disease, who came to the ED complaining of 3 days of shortness of breath and some chest heaviness with a squeezing sensation that resolved after her daughter suggested that they come to the ED last night. She did have a cough as well with some thick clear sputum. She had 1 episode of vomiting 2 days ago and 5 episodes of diarrhea yesterday. She feels possibly some palpitations but she feels her heart is beating hard and fast. She is positive for headache. She reports no weight gain, but the loss of 5 pounds, abdominal fullness, bilateral lower extremity edema. Workup in the ED showed a proBNP of 13,000, hypoxia, 90% on room air. Chest x- ray shows pulmonary edema and pleural effusions and cardiomegaly. She was given 80 mg of IV Lasix. We will admit for congestive heart failure exacerbation and continue with further treatment and evaluation. PAST MEDICAL HISTORY: Per HPI. PAST SURGICAL HISTORY: Hysterectomy, back surgery, cyst removed from behind the ear. SOCIAL HISTORY: She just did 14 days in rehab, got discharged on October 24. She lives with her daughter. No alcohol, tobacco, or illicit drug use. ALLERGIES: Codeine and peanuts. FAMILY HISTORY: Noncontributory. REVIEW OF SYSTEMS: Twelve-point review of systems complete and negative except for those mentioned in HPI. PHYSICAL EXAMINATION: VITAL SIGNS: Temperature is 97.6 degrees, heart rate 67, respirations 24, blood pressure 161/90, O2 is 93% on room air. GENERAL: Ms. Bruce is a pleasant 84-year-old female who is sitting up in the bed in no acute distress. HEENT: Atraumatic, normocephalic. PERRL. NECK: Supple. Trachea midline. CARDIOVASCULAR: S1, S2 appreciated. Positive murmur. No gallops or rubs. Slight JVD. Lower extremities, 1+ pitting edema. RESPIRATORY: Decreased airway entry throughout all lung roblero. Could not really appreciate any crackles, rhonchi, or wheezes. ABDOMEN: Soft, nontender, nondistended. Positive bowel sounds. EXTREMITIES: Patient moves all extremities well. NEUROLOGIC: No focal deficits noted. DIAGNOSTIC DATA: Chest x-ray, pulmonary edema, pleural effusions, cardiomegaly. EKG sinus rhythm with a first-degree AV block and LVH, prolonged QT. LABORATORY DATA: White count 8, hemoglobin and hematocrit 9 and 31, platelet count is 261,000. Sodium 141, potassium 3.5, BUN 21, creatinine 1.2, blood glucose is 128. AST 47, ALT 46. CK is 77, troponin is 31. ProBNP was 13,349. Urinalysis is clean. ASSESSMENT AND PLAN: 1. Acute congestive heart failure exacerbation, systolic. Ejection fraction is 40 to 45 percent. We will continue with strict intakes and outputs, daily weights. IV Lasix b.i.d. Continue home regimen when verified. 2. Atrial fibrillation/atrial flutter. We will continue with home medications when verified. 3. Hyperlipidemia. 4. Diabetes mellitus type 2. We will place her on sliding scale with pattern blood sugars. 5. Chronic kidney disease stage 1. The patient is at baseline. 6. Anemia of chronic disease, hemodynamically stable. Further recommendations to follow physician evaluation, laboratory and diagnostic data. Dictated by GIRISH Gregg for Albert Draper MD Addendum: Patient seen and examined by myself. Agree with OPTOMETRIC TECHNICIAN note. It reflects my assessment and plan. Patient is being admitted to hospital for CHF exacerbation. Will place her on Lasix 40 mg IV q12hs and will monitor electrolytes closely. cc: MD Ana Ayala MD Peter Johnson, MD MTDD
[2019-11-07 14:25] LABS: MAGNESIUM 1.5 mg/dL (1.5-2.7)
[2019-11-07] MEDS: HUMALOG SUBQ SCH ×2 (18:14→23:29)
[2019-11-07] MEDS ORDERED: BENADRYL PO PRN (22:49)
[2019-11-07] MEDS ORDERED: MIRALAX PO PRN (22:51)
[2019-11-07] MEDS ORDERED: VENTOLIN HFA INH PRN (22:51)
[2019-11-07] MEDS: LASIX IV SCH (22:57)
[2019-11-07 23:07] LABS: BILIRUBIN URINE NEGATIVE (NEGATIVE); BLOOD URINE TRACE (NEGATIVE); COLOR YELLOW; GLUCOSE URINE NEGATIVE (NEGATIVE); KETONE URINE NEGATIVE (NEGATIVE); LEUKOCYTES URINE NEGATIVE (NEGATIVE); NITRITE URINE NEGATIVE (NEGATIVE); PH URINE 6.5; PROTEIN URINE 200 mg/dL (NEGATIVE); SP GRAVITY URINE 1.018; TURBIDITY URINE CLEAR (CLEAR); URINE SOURCE CLEAN CATCH; UROBILINOGEN URINE NORMAL (NORMAL)
[2019-11-07 23:09] LABS: UR EPITHELIAL CELLS <10 /HPF (<10); URINE BACTERIA NEGATIVE /HPF; URINE RBC <10 /HPF (<10); URINE WBC <10 /HPF (<10)
[2019-11-07] MEDS: CATAPRES PO SCH (23:28)
[2019-11-07] MEDS: GLUCOPHAGE PO SCH (23:28)
[2019-11-07] MEDS: COREG PO SCH (23:28)
[2019-11-07] MEDS: ELIQUIS PO SCH (23:28)
[2019-11-08] MEDS: SYNTHROID PO SCH (06:28)
--- NOTE | 2019-11-08 07:05 | Diag Imaging Result Doc PS360 ---
EXAM: CHEST-PORTABLE HISTORY: CHF TECHNIQUE: Single view COMPARISON: 11/07/2019 FINDINGS: The heart remains enlarged. There is mild vascular distention. This is slightly less prominent. There are tiny pleural effusions which are unchanged. IMPRESSION: Mild improvement Electronically signed by Jeremias Hernandez 11/08/2019 7:02 AM
[2019-11-08] MEDS: HUMALOG SUBQ SCH ×4 (07:17→20:48)
--- NOTE | 2019-11-08 07:39 | EKG Report ---
Test Performed on : 11/08/2019 06:19:38 AM Test Reason : Heart Failure Admission Blood Pressure : / mmHG Vent. Rate : 070 BPM Atrial Rate : 070 BPM P-R Int : 208 ms QRS Dur : 092 ms QT Int : 516 ms P-R-T Axes : 058 -22 -65 degrees QTc Int : 557 ms Critical Test Result: Long QTc Normal sinus rhythm. Left ventricular hypertrophy with repolarization abnormality Prolonged QT Abnormal ECG When compared with ECG of 07-NOV-2019 08:40, (Unconfirmed) Minimal criteria for Septal infarct are no longer present Confirmed by Brian Mcelroy MD ([id number]) on 11/09/2019 10:49:01 AM
[2019-11-08 08:14] LABS: ALB/GLOB RATIO 0.9; ALBUMIN 3.1 g/dL (3.5-5.0); CALCIUM 8.4 mg/dL (8.8-10.2); CREATININE 1.2 mg/dL (0.5-0.9); POTASSIUM 3.3 mmol/L (3.5-5.1); TOTAL BILIRUBIN 0.51 mg/dL (0.20-1.00); TOTAL PROTEIN 6.5 g/dL (6.3-8.3)
[2019-11-08 08:24] LABS: BASO# 0.04 X1000 (0.0-0.2); BASO% 0.6 % (0.0-0.8); EOS# 0.39 X1000 (0.0-0.7); EOS% 5.8 % (0.0-10.0); HEMATOCRIT 29.1 % (37.0-47.0); HEMOGLOBIN 8.9 g/dL (12.0-16.0); LYMPH# 1.65 X1000 (1.2-3.4); LYMPH% 24.6 % (20.5-51.1); MCH 23.9 PG (27-31); MCHC 30.6 g/dL (33-37); MONO# 0.62 X1000 (0.11-0.59); MONO% 9.3 % (1.7-9.3); MPV 11.1 FL (7.4-10.4); NEUT% 59.7 % (42.2-75.2); PLT 232 X1000 (130-400); RBC 3.73 XMIL (4.2-5.4); RDW 18.6 % (11.5-14.5)
[2019-11-08] MEDS ORDERED: KLOR-CON PO ONE (09:44)
[2019-11-08] MEDS: LASIX IV SCH ×2 (09:55→21:02)
[2019-11-08] MEDS: COZAAR PO SCH (09:55)
[2019-11-08] MEDS: ELIQUIS PO SCH ×2 (09:56→21:02)
[2019-11-08] MEDS: CORDARONE PO SCH (09:56)
[2019-11-08] MEDS: GLUCOPHAGE PO SCH ×2 (09:56→21:02)
[2019-11-08] MEDS: SINGULAIR PO SCH (09:56)
[2019-11-08] MEDS: COREG PO SCH ×2 (09:56→21:02)
[2019-11-08] MEDS: FISH OIL CONCENTRATE PO SCH (09:56)
--- NOTE | 2019-11-08 13:44 | PROGRESS NOTE ---
DATE: 11/08/2019 SUBJECTIVE: Patient reports feeling fine. Denies any other complaint. No chest pain. No fever or chills. OBJECTIVE: Vital Signs: Temperature 97.9 degrees, heart rate 74, respiratory rate 16, blood pressure 160/78, O2 saturation 96% on room air. General Examination: This is a chronically ill- looking, 84-year-old -Chinese female lying in bed, in no acute distress. Cardiovascular Exam: Irregularly irregular heart rhythm. No murmurs, gallops, or rubs. Respiratory Exam: Minimal crackles noted in both pulmonary bases. Patient is not using any accessory muscles or having work of breathing. Abdomen: Soft, nontender to palpation. Bowel sounds present. No organomegaly. Extremities: No clubbing, cyanosis, or edema. Peripheral pulses present in both legs. Neurological Exam: Patient alert and oriented x3. Moves 4 extremities. LABORATORY DATA: Reviewed. ASSESSMENT AND PLAN: 1. Acute congestive heart failure. We will continue with Lasix 40 mg IV q.12 hours. The last ejection fraction that we checked 40% to 45%. Will continue with the same management. We will monitor strictly intakes and outputs. 2. Atrial fibrillation/atrial flutter. Heart rate is well-controlled. Will continue with the same management. 3. Hyperlipidemia. Will continue with home medications. 4. Diabetes mellitus type 2. We will continue with sliding scale insulin and Accu-Chek before meals and also at bedtime. 5. Chronic kidney disease stage 1. Will continue to monitor BMP daily. Creatinine is at her baseline. 6. Anemia of chronic disease. Stable. Will continue to monitor. cc: MD JACINTA Ayala
[2019-11-08] MEDS: CATAPRES PO SCH (21:02)
[2019-11-09] MEDS: SYNTHROID PO SCH (06:38)
[2019-11-09] MEDS: HUMALOG SUBQ SCH ×4 (06:42→21:20)
[2019-11-09 07:57] LABS: BASO# 0.03 X1000 (0.0-0.2); BASO% 0.5 % (0.0-0.8); EOS# 0.38 X1000 (0.0-0.7); EOS% 6.3 % (0.0-10.0); HEMATOCRIT 29.2 % (37.0-47.0); HEMOGLOBIN 8.9 g/dL (12.0-16.0); LYMPH# 1.67 X1000 (1.2-3.4); LYMPH% 27.7 % (20.5-51.1); MCH 23.7 PG (27-31); MCHC 30.5 g/dL (33-37); MCV 77.7 FL (81-99); MONO# 0.52 X1000 (0.11-0.59); MONO% 8.6 % (1.7-9.3); MPV 11.5 FL (7.4-10.4); NEUT# 3.42 X1000 (1.4-6.5); NEUT% 56.9 % (42.2-75.2); PLT 252 X1000 (130-400); RBC 3.76 XMIL (4.2-5.4); RDW 18.7 % (11.5-14.5); WBC 6.02 X1000 (4.8-10.8)
[2019-11-09 08:45] LABS: ALBUMIN 3.1 g/dL (3.5-5.0); CALCIUM 8.2 mg/dL (8.8-10.2); CREATININE 1.4 mg/dL (0.5-0.9); PHOSPHORUS 4.1 mg/dL (2.7-4.5); POTASSIUM 4.3 mmol/L (3.5-5.1)
--- NOTE | 2019-11-09 09:31 | Diag Imaging Result Doc PS360 ---
EXAM: CHEST-2 VIEWS 11/09/2019 HISTORY: pulmonary edema TECHNIQUE: PA and lateral chest COMMENT: There are bilateral pleural effusions. There is cardiomegaly. There is platelike opacity in the left lower lobe which was not present on 11/08/2019. There is increased pulmonary vascularity. IMPRESSION: Mild pulmonary edema and bilateral pleural effusions. Cardiomegaly. Left lower lobe atelectasis. Electronically signed by Jonathan Vazquez 11/09/2019 9:28 AM
[2019-11-09] MEDS: ALDACTONE PO SCH (10:13)
[2019-11-09] MEDS: FISH OIL CONCENTRATE PO SCH (10:14)
[2019-11-09] MEDS: SINGULAIR PO SCH (10:14)
[2019-11-09] MEDS: CRESTOR PO SCH (10:14)
[2019-11-09] MEDS: GLUCOPHAGE PO SCH ×2 (10:15→21:20)
[2019-11-09] MEDS: THERA M PLUS PO SCH (10:15)
[2019-11-09] MEDS: ELIQUIS PO SCH ×2 (10:15→21:30)
[2019-11-09] MEDS: COZAAR PO SCH (10:15)
[2019-11-09] MEDS: COREG PO SCH ×2 (10:15→21:30)
[2019-11-09] MEDS: LASIX IV SCH ×2 (10:16→21:30)
[2019-11-09] MEDS: CORDARONE PO SCH (10:16)
--- NOTE | 2019-11-09 10:50 | PROGRESS NOTE ---
DATE: 11/09/2019 SUBJECTIVE: The patient reports feeling fine. Denies any complaint although when she tries to walk into the bathroom, she feels still a little bit short of breath. OBJECTIVE: Vital Signs: Temperature 98.1 degrees, heart rate 67, respiratory rate 16, blood pressure 153/77, O2 saturation 99% on room air. General: This is a chronically ill-looking, 84- year-old female, lying in bed, in no acute distress. Cardiovascular: Irregularly irregular heart rhythm. No murmurs, gallops, or rubs noted. Respiratory: Crackles are still noted in both pulmonary bases. Patient not using any accessory muscles or having work of breathing. Abdomen: Soft. Nontender to palpation. Bowel sounds present. No organomegaly. Extremities: No clubbing, cyanosis, or edema. Peripheral pulses present in both legs. Neurological: Patient is alert and oriented x3. Moves 4 extremities. LABORATORY DATA: Reviewed. ASSESSMENT AND PLAN: 1. Acute congestive heart failure. We will continue with Lasix 40 mg IV q.12 hours. Clinically, this patient is doing better although still noticing some shortness of breath when she tries to walk short a distance. At this point, we will continue with the same management. Last ejection fraction that we have from an echo is 40 to 45 percent. We will continue with the same management. We will continue to monitor strict intake and output. 2. Atrial fibrillation/atrial flutter. Heart rate is well controlled. We will continue with home medications. 3. Hyperlipidemia. We will continue with statins. 4. Diabetes mellitus type 2. We will continue with sliding scale insulin and Accu-Chek before meals and also at bedtime. 5. Chronic kidney disease stage II. We will continue to monitor BMP daily. Creatinine continues to be at her baseline. 6. Anemia of chronic disease. Stable. No need for any transfusion. 7. Disposition. Will check chest x-ray tomorrow and see how this patient does. If she is feeling better, we may discharge her the next 24 to 48 hours. cc: Albert Draper MD
[2019-11-09] MEDS: CATAPRES PO SCH (21:30)
[2019-11-10] MEDS: SYNTHROID PO SCH (06:25)
[2019-11-10] MEDS: HUMALOG SUBQ SCH ×4 (06:25→22:23)
[2019-11-10 07:54] LABS: BASO# 0.03 X1000 (0.0-0.2); BASO% 0.5 % (0.0-0.8); EOS# 0.35 X1000 (0.0-0.7); EOS% 5.8 % (0.0-10.0); HEMOGLOBIN 8.7 g/dL (12.0-16.0); LYMPH# 1.99 X1000 (1.2-3.4); LYMPH% 32.9 % (20.5-51.1); MCH 23.4 PG (27-31); MONO# 0.51 X1000 (0.11-0.59); MONO% 8.4 % (1.7-9.3); MPV 10.9 FL (7.4-10.4); NEUT# 3.16 X1000 (1.4-6.5); NEUT% 52.4 % (42.2-75.2); PLT 239 X1000 (130-400); RBC 3.72 XMIL (4.2-5.4); RDW 18.3 % (11.5-14.5); WBC 6.04 X1000 (4.8-10.8)
[2019-11-10 08:26] LABS: ALBUMIN 3.1 g/dL (3.5-5.0); CALCIUM 8.6 mg/dL (8.8-10.2); CREATININE 1.7 mg/dL (0.5-0.9); PHOSPHORUS 3.7 mg/dL (2.7-4.5); POTASSIUM 3.7 mmol/L (3.5-5.1)
[2019-11-10] MEDS: SINGULAIR PO SCH (08:40)
[2019-11-10] MEDS: CORDARONE PO SCH (08:41)
[2019-11-10] MEDS: ALDACTONE PO SCH (08:41)
[2019-11-10] MEDS: ELIQUIS PO SCH ×2 (08:41→22:22)
[2019-11-10] MEDS: COZAAR PO SCH (08:41)
[2019-11-10] MEDS: COREG PO SCH ×2 (08:41→22:22)
[2019-11-10] MEDS: FISH OIL CONCENTRATE PO SCH (08:41)
[2019-11-10] MEDS: GLUCOPHAGE PO SCH ×2 (08:41→22:22)
[2019-11-10] MEDS: LASIX IV SCH ×2 (08:41→22:23)
[2019-11-10] MEDS ORDERED: ZAROXOLYN PO ONE (09:30)
--- NOTE | 2019-11-10 10:17 | PROGRESS NOTE ---
DATE: 11/10/2019 SUBJECTIVE: Patient reports still short of breath when she walks minimal distance, denies any other complaints. OBJECTIVE: Vital Signs: Temperature 98.2, heart rate 62 respiratory 16 blood pressure 156/71. O2 saturation 100% on room air. General: This is a chronically ill-looking, 84-year-old female lying in bed, in no acute distress. Cardiovascular: Irregularly irregular heart rhythm. No murmurs, gallops, or rubs noted. Respiratory: Minimal crackles noted still in both pulmonary bases. Patient not using any accessory muscles or having work of breathing. Abdomen: Soft. Nontender to palpation. Bowel sounds present. No organomegaly. Extremities: No clubbing, cyanosis, or edema. Peripheral pulses present in both legs. Neurological: Patient alert, oriented x3. Moves 4 extremities. LABORATORY DATA: Reviewed. ASSESSMENT AND PLAN: 1. Acute congestive heart failure. We will continue with Lasix 40 mg IV q. 12 hours. We will add 1 dose of metolazone 5 mg p.o. daily and see how this patient does. Her last ejection fraction that we have in the echo is 40 to 45 percent. Will continue to monitor this patient closely. Monitor strictly intake and output. 2. Atrial fibrillation/atrial flutter. Heart rate is well controlled. We will continue home medications. 3. Hyperlipidemia. We will continue with the statin. 4. Diabetes mellitus type 2. We will continue with sliding scale insulin and Accu-Chek before meals and also at bedtime. 5. Chronic kidney disease stage 2. Creatinine is getting a little bit worse we will continue to monitor. 6. Anemia of chronic disease. Stable. No need for any transfusion at this point. DISPOSITION: We will continue to monitor this patient closely. cc: Albert Draper MD
[2019-11-10] MEDS: CATAPRES PO SCH (22:22)
[2019-11-11] MEDS: SYNTHROID PO SCH (06:06)
[2019-11-11] MEDS: HUMALOG SUBQ SCH ×4 (06:09→21:58)
[2019-11-11 07:03] LABS: BASO# 0.04 X1000 (0.0-0.2); BASO% 0.7 % (0.0-0.8); EOS# 0.36 X1000 (0.0-0.7); EOS% 6.3 % (0.0-10.0); HEMOGLOBIN 8.8 g/dL (12.0-16.0); LYMPH# 1.72 X1000 (1.2-3.4); LYMPH% 30.2 % (20.5-51.1); MCH 23.4 PG (27-31); MCHC 30.3 g/dL (33-37); MCV 77.1 FL (81-99); MONO# 0.55 X1000 (0.11-0.59); MONO% 9.6 % (1.7-9.3); MPV 10.9 FL (7.4-10.4); NEUT# 3.03 X1000 (1.4-6.5); NEUT% 53.2 % (42.2-75.2); PLT 249 X1000 (130-400); RBC 3.76 XMIL (4.2-5.4); RDW 18.2 % (11.5-14.5)
[2019-11-11 07:18] LABS: ALBUMIN 3.2 g/dL (3.5-5.0); CALCIUM 9.6 mg/dL (8.8-10.2); CREATININE 1.8 mg/dL (0.5-0.9); POTASSIUM 3.9 mmol/L (3.5-5.1)
[2019-11-11] MEDS: ELIQUIS PO SCH ×2 (10:03→21:57)
[2019-11-11] MEDS: ALDACTONE PO SCH (10:03)
[2019-11-11] MEDS: THERA M PLUS PO SCH (10:03)
[2019-11-11] MEDS: GLUCOPHAGE PO SCH ×2 (10:03→21:57)
[2019-11-11] MEDS: LASIX IV SCH ×2 (10:03→21:57)
[2019-11-11] MEDS: CRESTOR PO SCH (10:03)
[2019-11-11] MEDS: SINGULAIR PO SCH (10:03)
[2019-11-11] MEDS: COZAAR PO SCH (10:03)
[2019-11-11] MEDS: FISH OIL CONCENTRATE PO SCH (10:03)
[2019-11-11] MEDS: CORDARONE PO SCH (10:04)
[2019-11-11] MEDS: COREG PO SCH ×2 (10:04→21:57)
[2019-11-11] MEDS ORDERED: ZAROXOLYN PO ONE (12:28)
--- NOTE | 2019-11-11 12:55 | PROGRESS NOTE ---
DATE: 11/11/2019 SUBJECTIVE: The patient reports feeling better. Less shortness of breath than yesterday although a little bit today. She continues to be on room air. OBJECTIVE: Vital Signs: Temperature 97.4 degrees, heart rate 64, respiratory 14, blood pressure 136/60, O2 saturation 95% on room air. General: This is a chronically ill-looking, 84-year-old female lying in bed, in no acute distress. Cardiovascular: Irregularly irregular heart rhythm. No murmurs, gallops, or rubs noted. Respiratory: Very minimal crackles noted still in both pulmonary bases. Patient not using any accessory muscles or having work of breathing. Abdomen: Soft, nontender to palpation. Bowel sounds present. No organomegaly. Extremities: No clubbing, cyanosis, or edema. Peripheral pulses present in both legs. Neurological: Patient alert and oriented x3. Moves 4 extremities. LABORATORY DATA: Reviewed. CBC is okay and BMP shows creatinine 1.8, on admission was 1.2. ASSESSMENT AND PLAN: 1. Acute congestive heart failure. The patient is on Lasix 40 mg IV q.12 hours and she received 1 dose of metolazone 5 mg p.o. daily yesterday. The patient reports feeling okay. At this point, she is not sure how she is feeling. She preferred to stay 1 more day. At this point, I am going to repeat an x-ray and provide 1 more dose of metolazone today. If this patient is breathing better, will discharge her tomorrow. We will monitor strict intake and output. 2. Atrial fibrillation/atrial flutter. Heart rate continues to be well controlled. We will continue home medications. 3. Hyperlipidemia. We will continue with the statin. 4. Diabetes mellitus type 2. We will continue with sliding scale insulin. Accu-Chek before meals and also at bedtime. 5. Chronic kidney disease stage II. Creatinine is getting a little bit worse but I think risks versus benefits, I think this patient will continue to receive diuretics. 6. Anemia of chronic disease. Hemoglobin is stable. No need for any transfusion at this point. 7. Disposition. At this point, the patient is getting better so if she is clinically feeling better tomorrow and x-ray shows improvement, then we will let her go. cc: Albert Draper MD
--- NOTE | 2019-11-11 13:50 | Diag Imaging Result Doc PS360 ---
EXAM: CHEST-2 VIEWS HISTORY: pulmonary edema TECHNIQUE: Two views COMPARISON: 11/09/2019 FINDINGS: The lungs are hyperexpanded with an increased AP diameter to the chest. The small bilateral pleural effusions with basilar atelectasis. Mild cardiomegaly. There is central vascular prominence. There are several scattered granuloma. IMPRESSION: No interval improvement. Electronically signed by Jeremias Hernandez 11/11/2019 1:48 PM
[2019-11-11] MEDS: CATAPRES PO SCH (21:57)
[2019-11-12] MEDS: SYNTHROID PO SCH (06:13)
[2019-11-12 06:58] LABS: BASO# 0.04 X1000 (0.0-0.2); BASO% 0.7 % (0.0-0.8); EOS# 0.34 X1000 (0.0-0.7); HEMATOCRIT 28.7 % (37.0-47.0); HEMOGLOBIN 8.7 g/dL (12.0-16.0); LYMPH# 1.94 X1000 (1.2-3.4); LYMPH% 34.5 % (20.5-51.1); MCH 23.5 PG (27-31); MCHC 30.3 g/dL (33-37); MCV 77.6 FL (81-99); MONO# 0.57 X1000 (0.11-0.59); MONO% 10.1 % (1.7-9.3); MPV 11.3 FL (7.4-10.4); NEUT# 2.73 X1000 (1.4-6.5); NEUT% 48.7 % (42.2-75.2); PLT 257 X1000 (130-400); RDW 18.3 % (11.5-14.5); WBC 5.62 X1000 (4.8-10.8)
[2019-11-12 07:50] LABS: ALBUMIN 3.3 g/dL (3.5-5.0); CREATININE 1.9 mg/dL (0.5-0.9); PHOSPHORUS 4.6 mg/dL (2.7-4.5); POTASSIUM 3.8 mmol/L (3.5-5.1)
[2019-11-12] MEDS: HUMALOG SUBQ SCH ×2 (08:52→11:02)
[2019-11-12] MEDS: COREG PO SCH (10:04)
[2019-11-12] MEDS: SINGULAIR PO SCH (10:04)
[2019-11-12] MEDS: FISH OIL CONCENTRATE PO SCH (10:04)
[2019-11-12] MEDS: ELIQUIS PO SCH (10:05)
[2019-11-12] MEDS: GLUCOPHAGE PO SCH (10:05)
[2019-11-12] MEDS: CORDARONE PO SCH (10:05)
[2019-11-12] MEDS: ALDACTONE PO SCH (10:05)
[2019-11-12] MEDS: LASIX IV SCH (10:05)
[2019-11-12] MEDS: COZAAR PO SCH (10:06)
[2019-11-12 11:23] VITALS: BP 143/68
--- NOTE | 2019-11-12 22:08 | DISCHARGE SUMMARY ---
ADMISSION DATE: 11/07/2019 DISCHARGE DATE: 11/12/2019 PRIMARY CARE PHYSICIAN: Dr. Ana Leone. ADMISSION DIAGNOSES: 1. Acute congestive heart failure exacerbation, systolic. 2. Atrial fibrillation/atrial flutter. 3. Hyperlipidemia. 4. Diabetes type 2. 5. Chronic kidney disease stage 1. 6. Anemia of chronic disease, hemodynamically stable. DISCHARGE DIAGNOSES: 1. An acute systolic congestive heart failure, improved. 2. Atrial fibrillation/atrial flutter, rate controlled. 3. Hyperlipidemia. 4. Diabetes type 2. 5. Chronic kidney disease stage 2. 6. Anemia of chronic disease. SUMMARY OF FINDINGS: This is an 84-year-old female who presented to the ED with a 3 day complaint of shortness of breath and some chest heaviness with a squeezing sensation that resolved after her daughter suggested that they come to the ED last night. She did have a cough as well as some thick clear sputum, one episode of vomiting two days prior to arrival and five episodes of diarrhea the day before. She had felt some palpitations beating hard and fast. [place]BNP [place] [address]50. She was saturating 90% on room air. Chest x-ray showed pulmonary edema, pleural effusions, and cardiomegaly. Was given 80 mg of IV Lasix in the emergency room, was admitted. Repeated chest x-ray on 11/09/2019 that showed mild pulmonary edema and bilateral pleural effusions and cardiomegaly and a left lower lobe atelectasis. Repeated chest x- ray yesterday that showed no interval improvement. She has diuresed well. States that she is feeling better and it is felt that she can safely be discharged home today. DISCHARGE MEDICATIONS: Ventolin inhaler 2 puffs 4 times daily p.r.n., amiodarone 200 mg p.o. daily, Eliquis 5 mg p.o. b.i.d., carvedilol 25 mg p.o. b.i.d., Catapres 0.2 mg p.o. q. p.m., diphenhydramine 25 mg p.o. daily p.r.n., levothyroxine 50 mcg p.o. daily, losartan 50 mg p.o. daily, metformin 500 mg p.o. b.i.d., montelukast sodium 10 mg p.o. daily, multivitamin with minerals 1 p.o. every other day, fish oil 1000 mg p.o. daily, MiraLAX 17 g 1 p.o. daily p.r.n. rosuvastatin 5 mg p.o. every other day. Spironolactone 12.5 mg p.o. daily. Torsemide 20 mg p.o. b.i.d. #60 with no refills. FOLLOW-UP: She will follow up with her primary care physician on 11/19/2019 at 9 a.m. All discharge instructions have been reviewed with the patient and she verbalizes understanding. TIME SPENT: 35 minute discharge. Dictated by GIRISH Hall for Albert Draper MD Addendum: Patient is seen and examined by myself. Agree with GIRISH note. It reflects my assessment and plan. Patient is being discharged in stable condition. Will be seen by PCP in a week. cc: GIRISH Hall MD [facility]
== END 2019-11-12 13:00 | disposition home health service (06) | DRG 291 ==
LOC: ED 07:42 → EDIPHOLD 12:24 → 4N 17:05
PROVIDERS: ATTEND Internal Medicine